=== PATIENT | male | born 1955 | race Caucasian/White ===

== ENCOUNTER 2023-05-17 09:58 | Outpatient (OUT) | payer MEDICARE, SELFPAY ==
[2023-05-17 10:49] LABS: Basophils Percent Auto 0.5 % (0.2-2.0); Eosinophils Absolute Auto 0.3 10^3/uL (0.0-0.7); Eosinophils Percent Auto 6.4 % (0.9-7.0); Hematocrit 45.6 % (42.0-54.0); Hemoglobin 15.7 g/dL (14.0-18.0); Immature Granulocytes Abs Auto 0.01 10^3/uL (0.00-0.03); Immature Granulocytes Pct Auto 0.3 % (0.0-0.5); Lymphocytes Absolute Auto 1.2 10^3/uL (1.2-3.8); Lymphocytes Percent Auto 31.1 % (20.5-60.0); Mean Corpuscular HGB Conc 34.4 g/dL (29.9-35.2); Mean Corpuscular Hemoglobin 30.8 pg (25.9-34.0); Mean Corpuscular Volume 89.6 fL (80.0-94.0); Mean Platelet Volume 10.5 fL (9.5-13.5); Monocytes Absolute Auto 0.5 10^3/uL (0.3-0.8); Monocytes Percent Auto 12.2 % (1.7-12.0); Neutrophils Absolute Auto 1.9 10^3/uL (1.4-6.5); Neutrophils Percent Auto 49.5 % (43.0-75.0); Platelet Count 189 10^3/uL (150-450); Red Blood Count 5.09 10^6/uL (4.70-6.10); Red Cell Distribution Width 12.6 % (11.0-15.0); White Blood Count 3.9 10^3/uL (4.0-11.0)
[2023-05-17 10:50] LABS: Bilirubin Urine NEGATIVE (NEGATIVE); Blood Urine NEGATIVE (NEGATIVE); Clarity Urine CLEAR (CLEAR); Color Urine LT. YELLOW (YELLOW); Glucose Urine UA NEGATIVE (NEGATIVE); Ketones Urine NEGATIVE (NEGATIVE); Leukocyte Esterase Urine NEGATIVE (NEGATIVE); Nitrite Urine NEGATIVE (NEGATIVE); Protein Urine NEGATIVE (NEG/TRACE); Specific Gravity Urine <=1.005 (1.005-1.025); Urobilinogen Urine 0.2 EU/dL (0.2-1.0); pH Urine 6.5 (5.0-9.0)
[2023-05-17 11:02] LABS: RBC Urine NONE SEEN #/HPF (0-2); WBC Urine NONE SEEN #/HPF (NONE SEEN)
[2023-05-17 11:03] LABS: Bacteria Urine NONE SEEN #/HPF (NONE SEEN); Crystals Seen? None Seen #/HPF (None Seen); Mucus Urine NONE SEEN (NONE SEEN); Squamous Epithelial Cell Urine RARE #/LPF (NONE/RARE)
[2023-05-17 11:04] LABS: Cast Seen? NONE SEEN #/LPF (NONE SEEN)
[2023-05-17 13:01] LABS: Anion Gap 12.6; Carbon Dioxide 29.6 mmol/L (21.0-32.0); Chloride 103 mmol/L (98-107); Potassium 4.2 mmol/L (3.5-5.1); Sodium 141 mmol/L (136-145)
[2023-05-17 13:02] LABS: Alanine Aminotransferase 34 U/L (16-63); Aspartate Amino Transferase 32 U/L (15-37); BUN Creatinine Ratio 15.5; Bilirubin Total 0.7 mg/dL (0.2-1.0); Calcium 9.3 mg/dL (8.5-10.1); Estimated GFR (African America >60 (>=60); Estimated GFR (Non-African Ame 55 (>=60); Glucose 84 mg/dL (74-106)
[2023-05-17 13:03] LABS: Albumin Globulin Ratio 1.2; Albumin Level 3.9 g/dL (3.4-5.0); Alkaline Phosphatase 93 U/L (46-116); Globulin 3.2 g/dL; Total Protein 7.1 g/dL (6.4-8.2); Triglycerides 78 mg/dL (<=150); VLDL CHOLESTEROL 15.6 mg/dL
[2023-05-17 13:04] LABS: Chol HDL Ratio 3.3; Cholesterol 203 mg/dL (<=200); HDL Cholesterol 62 mg/dL (40-60); Thyroid Stimulating Hormone 3.397 uIU/mL (0.358-3.740)
[2023-05-18 08:12] LABS: PSA, Free 0.39 ng/mL; Prostate Specific Ag 2.1 ng/mL (0.0-4.0)
== END 2023-05-17 09:59 | disposition home or self-care (01) ==
LOC: LAB 10:03
PROVIDERS: PCP Family Medicine; Visit Provider Family Medicine
DX: E78.5 Hyperlipidemia, unspecified (principal); R63.5 Abnormal weight gain; Z79.899 Other long term (current) drug therapy; R35.1 Nocturia; R97.20 Elevated prostate specific antigen [PSA]
CPT/HCPCS: 36415; 80053; 80061; 81001; 84153; 84154; 84443; 85025; 87086

== ENCOUNTER 2023-10-07 13:30 | Outpatient (OUT) | payer MEDICARE, SELFPAY ==
[2023-10-07 13:57] LABS: Anion Gap 10.8; BUN Creatinine Ratio 13.2; Calcium 8.8 mg/dL (8.5-10.1); Carbon Dioxide 31.7 mmol/L (21.0-32.0); Chloride 106 mmol/L (98-107); Estimated GFR (African America >60 (>=60); Estimated GFR (Non-African Ame 55 (>=60); Glucose 92 mg/dL (74-106); Potassium 4.5 mmol/L (3.5-5.1); Sodium 144 mmol/L (136-145)
== END 2023-10-07 13:31 | disposition home or self-care (01) ==
LOC: LAB 13:32
PROVIDERS: PCP Family Medicine; Visit Provider Family Medicine
DX: Z79.899 Other long term (current) drug therapy (principal)
CPT/HCPCS: 36415; 80048

== ENCOUNTER 2023-12-02 09:13 | Outpatient (OUT) | payer MEDICARE, SELFPAY ==
--- OUTSIDE RECORDS SUMMARY | 2023-12-02 09:21 | XMS_ITS | CCD ---
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 Name Role Phone Jose Billy Unavailable Makenzie Mcqueenn Unavailable Richard Vail Unavailable DO Jose Billy Primary Care Provider [phone] DO Jose Billy Attending Provider [phone] DO Jose Billy Primary Care Provider [phone] MD Reji Wesley II Attending Provider Reji Wesley II Unavailable Jose Billy Primary Care Unavailable Reji Wesley II Attending Unavailabl e Reji Wesley II Admitting Unavailronnie e Medications Current Medications Medication Drug Class(es) Dates Sig (Normalized) Sig (Original) Aspir-81 (4 sources) Aspir-81 Active aspirin 81 mg chewable tablet (7 sources) Platelet Aggregation Inhibitor, Nonsteroidal Anti-inflammatory Drug take 1 tablet by mouth every twenty-four hours Aspirin 81 81 MG 1 tablet Orally Once a day Active take 1 tablet by mouth once genaro y Aspirin 81 81 MG 1 tablet Orally Once a day Active Bioflex (4 sources) Bioflex Active calcium carbonate 1500 mg oral tablet (7 sources) take 2 tablets by mo uth every twenty-four hours Calcium 600 MG 2 tablet with meals Orally Once a day Active take 2 tablets by mo uth every twenty-four hours Calcium 600 MG 2 tablet with meals Orally Once a day Active Calcium Citrate (4 sources) Citracal + D Act judie Centrum Silver 50+Men (4 sources) Centrum Silver 50+Men Active Centrum Silver 50+Men - (7 sources) take 1 tablet by mouth once daily Centrum Silver 50+Men - 1 TABLET Orally ONCE A DAY Active Citrulline (4 sources) Citrulline - as directed Active Creatine (4 sources) Creatine Monohyd rate - as directed Orally Active Glucosamine Chond Cmp Triple - (7 sources) take 1 tablet by mouth twice daily Glucosamine Chond Cmp Triple - 1 TABLET Orally TWICE A DAY Active losartan potassium 25 mg oral tablet (11 sources) Angiotensin 2 Receptor Sabina take 1 tablet by mouth every twenty-four hours Losartan Potassium 25 MG 1 tablet Orally Once a day Active magnesium oxide 400 mg oral tablet (11 sources) Start: 1 take 1 tablet by mouth every twelve hours Magnesium Oxide 400 MG 1 tablet with food Orally TWICE A DAY Nov, Active Start: 11-22-2020 take 1 tablet by jasmin th every twenty-four hours Magnesium Oxide 400 MG 1 tablet as needed Orally Once a day Nov, Active meloxicam 15 mg oral tablet (1 source) Nonsteroidal Anti-inflammatory Drug Start: 07-31-2023 take 1 tablet by mouth every twenty-four hours Meloxicam 15 MG 1 tablet Orally Once a day for 30 days Jul, Active Turmeric extract (11 sources) take 1 capsule by mouth twice daily Turmeric 1053 MG 1 CAPSULE Orally TWICE A DAY Active Turmeric Active Completed/Discontinued Medications Medication Drug Class(es) Dates Sig (Normalized) Sig (Original) methylPREDNISolone 4 mg oral tablet (4 sources) Corticosteroid Start: 1 methylPREDNISolone 4 MG as directed Orally with food for 6 days Nov, Not-Taking Problems Active Problems Problem Classification Problem Date Documented Date Episodic/Chronic Calculus of urinary tract (6 sources) Kidney stone; Translations: [Calculus of kidney] Onset: 2 Resolved: 2 Episodic Chronic kidney disease (5 sources) Chronic kidney disease stage 3A ; Translations: [Chronic kidney disease, stage 3a] Chronic Diseases of white blood cells (3 sources) Leukopenia; Translations: [Decreased white blood cell count, unspecified] Chronic Disorders of lipid metabolism (14 sources) Hyperlipidemia; Translations: [Hyperlipidemia, unspecified] Onset: 1 Resolved: 1 Chronic Essential hypertension (14 sources) Hypertensive disorder; Translations: [Essential (primary) hypertension] Onset: 1 Resolved: 1 Chronic Genitourinary symptoms and ill-defined conditions (3 sources) Nocturia; Translations: [Nocturia R35.1] Onset: 1 Resolved: 1 Episodic Hypertension with complications and secondary hypertension (9 sources) Chronic kidney disease due to hypertension; Translations: [Hypertensive chronic kidney disease with stage 1 through stage 4 chronic kidney disease, or unspecified chronic kidney disease] Onset: 2 Resolved: 2 Chronic Osteoarthritis (4 sources) Osteoarthritis of right knee joint; Translations: [Unilateral primary osteoarthritis, right knee] Chronic Other aftercare (3 sources) Other spark tester (current) drug therapy; Translations: [Other spark tester (current) drug therapy Z79.899] Onset: 1 Resolved: 1 Episodic Other diseases of kidney and ureters (7 sources) Secondary hyperparathyroidism; Translations: [Secondary hyperparathyroidism of renal origin] Chronic Other diseases of kidney and ureters (1 source) Secondary hyperparathyroidism of renal origin Onset: 2 Resolved: 2 Chronic Other hereditary and degenerative nervous system conditions (11 sources) Restless legs; Translations: [Restless legs syndrome] Chronic Other hereditary and degenerative nervous system conditions (2 sources) Restless legs syndrome Chronic Other non-traumatic joint disorders (1 source) Pain in left knee Episodic Other nutritional; endocrine; and metabolic disorders (3 sources) Abnormal weight gain; Translations: [Weight gain R63.5] Onset: 1 Resolved: 1 Episodic Other screening for suspected conditions (not mental disorders or infectious disease) (4 sources) Other specified abnormal findings of blood chemistry; Translations: [Elevated prostate specific antigen [PSA]] Onset: 1 Resolved: 1 Episodic Unclassified (1 source) Pain in left knee; Translations: [Pain in left knee] Onset: 3 Past or Other Problems Problem Classification Problem Date Documented Da te Episodic/Chronic Chronic kidney disease (16 sources) Chronic kidney disease; Translations: [Chronic kidney disease, stage 3a] Onset: 09-25-2021 Resolved: 01-04-2022 Immunizations and screening for infectious disease (2 sources) Encounter for immunization Onset: 07-26-2021 Resolved: 02-02-2022 Episodic Spondylosis; intervertebral disc disorders; other back problems (1 source) Low back pain; Translations: [Lumbar pain M54.5] Onset: 06-06-2021 Resolved: 06-06-2021 Episodic Results Test Name Value Interpretation Reference Range Facility XR knee BI 4Von 07-31-2023 XR knee BI 4V [facility] [address] [address] XRay Report Signed Patient: Otf Terry MR#: [id number] : 1955 Acct:[id number] Age/Sex: 68 / M ADM Date: 07/31/23 Loc: SOXD Room: [facility] Attending Dr: Reji Wesley II, MD Copies to: Reji Wesley MD Ordering Provider: Reji Wesley MD Date of Service: 07/31/23 XR/XR knee BI 4V: Acute pain of left knee XR knee BI 4V 07/31/2023 2:15 PM SIGNS AND SYMPTOMS: Bilateral knee pain left greater than right PROTOCOL: Frontal, lateral, oblique, and sunrise views of the COMPARISON: None FINDINGS: There is significant narrowing of the medial weightbearing joint spaces and patellofemoral joint spaces bilaterally. There is no fracture or disc. Small joint effusions are present bilaterally. The re is prepatellar soft tissue swelling. XR/XR knee BI 4V IMPRESSION: No acute bony injury. Significant tricompartmental degenerative changes are noted with small joint effusions bilaterally, as above. Impression dictated by: Getachew Manriquez M.D.07/31/2023 4:43 PM Dictation Location: [place] [address] Transcribed By: [facility] 07/31/23 164 Dictated By: Getachew Manriquez II, MD 07/31/23 164 Signed By: 07/31/23 1643 Normal [facility] XR pelvis 1-2Von 07-31-2023 XR pelvis 1-2V [facility] [address] [address] XRay Report Signed Patient: Otf Terry MR#: [id number] : 1955 Acct:[id number] Age/Sex: 68 / M ADM Date: 07/31/23 Loc: SOXD Room: Type: [facility] Attending Dr: Reji Wesley II, MD Copies to: Reji Wesley MD Ordering Provider: Reji Wesley MD Date of Service: 07/31/23 XR/XR pelvis 1-2V: Acute pain of left knee XR pelvis 1-2V 07/31/2023 2:15 PM SIGNS AND SYMPTOMS: Bilateral knee pain left greater than right PROTOCOL: Frontal radiograph of the pelvis COMPARISON: None FINDINGS: The bony ring of the pelvis is intact. Mild degenerative changes of the sacroiliac joints and hips. There is no fracture or dislocation. XR/XR pelvis 1-2V IMPRESSION: No fracture or dislocation. Mild degenerative changes are noted in the hips and sacroiliac joints. Impression dictated by: Getachew Manriquez M.D.07/31/2023 4:46 PM Dictation Location: [place] [address] Transcribed By: [facility] 07/31/23 164 Dictated By: Getachew Manriquez II, MD 07/31/231642 Signed By: 07/31/23 164 Normal [facility] Albumin [Mass/volume] in Ser um or PlasmaOrdered By: Jose Billy on 06-04-2022 Albumin [Mass/Vol] 3.9 g/dL 3.2-5.5 [facility] Basophils Auto (Bld) [#/Vol] Ordered By: Jose Billy on 06-04-2022 Basophils (Bld) [#/Vol] 0.0 10*3/uL 0.0-0.2 [facility] Basophils/100 WBC Auto (Bld) Ordered By: Jose Billy on 06-04-2022 Basophils/100 WBC (Bld) 0.6 % . [facility] Bilirubin Test strip Ql (U)O rdered By: Jose Billy on 06-04-2022 Bilirubin Ql (U) Negative Negative [facility] Cholesterol [Mass/volume] in Serum or PlasmaOrdered By: Jose Billy on 06-04-2022 Cholesterol [Mass/Vol] 191 mg/dL 140-200 [facility] Comment on above: Chol less than 200 m g/dl low riskChol 201-239 mg/dl borderline riskChol 240 mg/dl and greater high risk Cholesterol in LDL Calc [Mas s/Vol]Ordered By: Jose Billy on 06-04-2022 Cholesterol in LDL [Mass/Vol] 112 mg/dL 0-100 [facility] Comment on above: LDL ATP III CLASSIFI CATIONLDL less than 100 mg/dL OptimalLDL 100-129 mg/dL Near or above optimalLDL 130-159 mg/dL Borderline highLDL 160-189 mg/dL HighLDL greater than 189 mg/dL Very high Cholesterol in VLDL Calc [Ma ss/Vol]Ordered By: Jose Billy on 06-04-2022 Cholesterol in VLDL [Mass/Vol] 14 mg/dL [facility] Color Auto (U)Ordered By: Jay Billy on 06-04-2022 Color (U) Yellow Yellow [facility] Creatinine and Glomerular fi ltration rate.predicted panel (S/P/Bld)Ordered By: Jose Billy on 06-04-2022 Creatinine [Mass/Vol] 1.44 mg/dL 0.64-1.27 [facility] Eosinophils Auto (Bld) [#/Vo l]Ordered By: Jose Billy on 06-04-2022 Eosinophils (Bld) [#/Vol] 0.2 10*3/uL 0.0-0.45 [facility] Eosinophils/100 WBC Auto (Bl d)Ordered By: Jose Billy on 06-04-2022 Eosinophils/100 WBC (Bld) 5.5 % . [facility] Erythrocyte distribution wid th Auto (RBC) [Ratio]Ordered By: Jose Billy on 06-04-2022 Erythrocyte distribution width (RBC) [Ratio] 13.5 % 12.0-14.8 [facility] Estimated glomerular filtrat ion rate (GFR) non- AmericanOrdered By: Jose Billy on 06-04-2022 GFR/1.73 sq M.predicted among non-blacks MDRD (S/P/Bld) [Vol rate/Area] 49 mL/Min [facility] Globulin Calc (S) [Mass/Vol] Ordered By: Jose Billy on 06-04-2022 Globulin (S) [Mass/Vol] 2.3 g/dL [facility] Hematocrit Auto (Bld) [Volum e fraction]Ordered By: Jose Billy on 06-04-2022 Hematocrit (Bld) [Volume fraction] 44.7 % 38.8-50.0 [facility] Hemoglobin [Mass/volume] in BloodOrdered By: Jose Billy on 06-04-2022 Hemoglobin (Bld) [Mass/Vol] 15.1 g/dL 13.0-17.0 [facility] Ketones Auto test strip (U) [Mass/Vol]Ordered By: Jose Billy on 06-04-2022 Ketones (U) [Mass/Vol] Negative Negative [facility] - Hematology and Cell countsOrdered By: Jose Billy on 06-04-2022 Nucleated RBC/100 WBC (Bld) [Ratio] 0.2 % 0-0.5 [facility] Leukocytes [#/volume] in Blo od by Automated countOrdered By: Jose Billy on 06-04-2022 WBC (Bld) [#/Vol] 4.1 10*3/uL 4.5-11.0 [facility] Lymphocytes Auto (Bld) [#/Vo l]Ordered By: Jose Billy on 06-04-2022 Lymphocytes (Bld) [#/Vol] 1.2 10*3/uL 1.00-4.8 [facility] Lymphocytes/100 WBC Auto (Bl d)Ordered By: Jose Billy on 06-04-2022 Lymphocytes/100 WBC (Bld) 30.0 % . [facility] MCH Auto (RBC) [Entitic mass ]Ordered By: Jose Billy on 06-04-2022 MCH (RBC) [Entitic mass] 30.3 pg 27.5-35.2 [facility] MCHC Auto (RBC) [Mass/Vol]Or dered By: Jose Billy on 06-04-2022 MCHC (RBC) [Mass/Vol] 33.7 g/dL 32.5-35.6 [facility] MCV Auto (RBC) [Entitic vol] Ordered By: Jose Billy on 06-04-2022 MCV (RBC) [Entitic vol] 89.7 fL 83.5-101 [facility] Monocytes Auto (Bld) [#/Vol] Ordered By: Jose Billy on 06-04-2022 Monocytes (Bld) [#/Vol] 0.4 10*3/uL 0.0-0.8 [facility] Monocytes/100 WBC Auto (Bld) Ordered By: Jose Billy on 06-04-2022 Monocytes/100 WBC (Bld) 10.4 % . [facility] Neutrophils Auto (Bld) [#/Vo l]Ordered By: Jose Billy on 06-04-2022 Neutrophils (Bld) [#/Vol] 2.2 10*3/uL 1.8-7.7 [facility] Neutrophils/100 WBC Auto (Bl d)Ordered By: Jose Billy on 06-04-2022 Neutrophils/100 WBC (Bld) 53.5 % . [facility] Nitrite Test strip Ql (U)Ord ered By: Jose Billy on 06-04-2022 Nitrite Ql (U) Negative Negative [facility] No Panel InformationOrdered By: Jose Billy on 06-04-2022 Estimated GFR () 59 mL/Min [facility] Comment on above: GFR estimated refere nce range: According to KDOQI guidelines, <60 ml/min/1.73m2 is sufficient to diagnose a patient with chronic kidney disease. Pharmacy Creatinine Clearance (Chem N/A [facility] Prostate Specific Antigen Total 1.640 ng/mL 0.000-4.000 [facility] Platelet mean volume Auto (B ld) [Entitic vol]Ordered By: Jose Billy on 06-04-2022 Platelet mean volume (Bld) [Entitic vol] 9.0 fL 6.6-10.1 [facility] Platelets Auto (Bld) [#/Vol] Ordered By: Jose Billy on 06-04-2022 Platelets (Bld) [#/Vol] 170 10*3/uL 150-450 [facility] Protein Auto test strip (U) [Mass/Vol]Ordered By: Jose Billy on 06-04-2022 Protein (U) [Mass/Vol] Negative Negative [facility] Protein [Mass/volume] in Ser um or PlasmaOrdered By: Jose Billy on 06-04-2022 Protein [Mass/Vol] 6.2 g/dL 6.1-7.9 [facility] RBC Auto (Bld) [#/Vol]Ordere d By: Jose Billy on 06-04-2022 RBC (Bld) [#/Vol] 4.98 10*6/uL 3.90-5.60 [facility] Serum or plasma alanine miller otransferase measurement without P-5'-P (enzymatic activiOrdered By: Jose Billy on 06-04-2022 ALT No additional P-5'-P [Catalytic activity/Vol] 25 U/L [facility] Serum or plasma albumin/glob ulin mass ratioOrdered By: Jose Billy on 06-04-2022 Albumin/Globulin [Mass ratio] 1.7 {ratio} [facility] Serum or plasma alkaline iwona sphatase measurement (enzymatic activity/volume)Ordered By: Jose Billy on 06-04-2022 ALP [Catalytic activity/Vol] 84 U/L 32-92 [facility] Serum or plasma anion gap de terminationOrdered By: Jose Billy on 06-04-2022 Anion gap [Moles/Vol] 10.8 mmol/L 6.0-15.0 [facility] Serum or plasma aspartate am inotransferase measurement (enzymatic activity/volume)Ordered By: Jose Billy on 06-04-2022 AST [Catalytic activity/Vol] 27 U/L [facility] Serum or plasma calcium riley urement (mass/volume)Ordered By: Jose Billy on 06-04-2022 Calcium [Mass/Vol] 9.4 mg/dL 8.2-10.2 [facility] Serum or plasma chloride ana surement (moles/volume)Ordered By: Jose Billy on 06-04-2022 Chloride [Moles/Vol] 106 mmol/L 95-114 [facility] Serum or plasma glucose riley urement (mass/volume)Ordered By: Jose Billy on 06-04-2022 Glucose [Mass/Vol] 87 mg/dL 70-100 [facility] Comment on above: ADA recommended refe rence rangeRandom Glucose Reference Range is dependent on time and content of last meal. Glucose of more than 200 mg/dL in a nonstressed, ambulatory subject supports the diagnosis of Diabetes Mellitus. Serum or plasma high density lipoprotein (HDL) cholesterol measurementOrdered By: Jose Billy on 06-04-2022 Cholesterol in HDL [Mass/Vol] 65 mg/dL - [facility] Comment on above: HDL CHOL ATP-III CLA SSIFICATION Cardiovascular RiskHDL > or equal to 60 mg/dL LOWHDL < 40 mg/dL HIGH Serum or plasma potassium me asurement (moles/volume)Ordered By: Jose Billy on 06-04-2022 Potassium [Moles/Vol] 4.4 mmol/L 3.5-5.1 [facility] Serum or plasma sodium measu rement (moles/volume)Ordered By: Jose Billy on 06-04-2022 Sodium [Moles/Vol] 141 mmol/L 136-146 [facility] Serum or plasma total biliru bin measurement (mass/volume)Ordered By: Jose Billy on 06-04-2022 Bilirubin [Mass/Vol] 0.8 mg/dL 0.3-1.2 [facility] Serum or plasma total carbon dioxide measurement (moles/volume)Ordered By: Jose Billy on 06-04-2022 CO2 [Moles/Vol] 28.6 mmol/L 22.0-30.0 [facility] Serum or plasma total choles terol/high density lipoprotein (HDL) cholesterol mass ratOrdered By: Jose Billy on 06-04-2022 Cholesterol.total/Choles terol in HDL [Mass ratio] 2.9 {ratio} <5.0 [facility] Serum or plasma urea nitroge n measurement (mass/volume)Ordered By: Jose Billy on 06-04-2022 Urea nitrogen [Mass/Vol] 12 mg/dL 05-11 [facility] Specific gravity Auto test s trip (U) [Rel density]Ordered By: Jose Billy on 06-04-2022 Specific gravity (U) [Rel density] 1.008 1.001-1.030 [facility] TSH DL <= 0.005 mIU/L QnOrde red By: Jose Billy on 06-04-2022 TSH Qn 4.45 m[IU]/L 0.45-5.33 [facility] Triglyceride [Mass/volume] i n Serum or PlasmaOrdered By: Jose Billy on 06-04-2022 Triglyceride [Mass/Vol] 70 mg/dL 35-149 [facility] Comment on above: TRIG ATP III CLASSIF ICATIONTRIG less than 150 mg/dL NormalTRIG 150-199 mg/dL Borderline highTRIG 200-500 mg/dL High TRIG greater than 500 mg/dL Very highStandard traceable to the Center for Disease Conrtrol and Prevention (CDC) test method. Urine clarity by refractomet ry automatedOrdered By: Jose Billy on 06-04-2022 Clarity Refractometry automated (U) Clear Clear [facility] Urine glucose measurement by automated test strip (mass/volume)Ordered By: Jose Billy on 06-04-2022 Glucose Auto test strip (U) [Mass/Vol] Normal mg/dL Normal [facility] Urine hemoglobin detection b y automated test stripOrdered By: Jose Billy on 06-04-2022 Hemoglobin Auto test strip Ql (U) Negative Negative [facility] Urine leukocyte esterase det ection by automated test stripOrdered By: Jose Billy on 06-04-2022 Leukocyte esterase Auto test strip Ql (U) Negative Negative [facility] Urobilinogen Auto test strip (U) [Mass/Vol]Ordered By: Jose Billy on 06-04-2022 Urobilinogen (U) [Mass/Vol] Normal mg/dL Normal [facility] pH Auto test strip (U)Ordere d By: Jose Billy on 06-04-2022 pH (U) 7.0 [pH] 5.0-9.0 [facility] Vital Signs Date Time Vital Sign Value Performing Clinician Facility 07-31-2023 14:30-0500 Body height 177.8 cm Reji Wesley II Other [facility] Other 07-31-2023 14:30-0500 Body mass index (BMI) [Ratio] 34.43 kg/m2 Reji Wesley II Other [facility] Other 07-31-2023 14:30-0500 Body weight 108.86 kg Reji Wesley II Other [facility] Other 05-23-2023 09:50-0400 Body height 177.8 cm Jose Gonzalezronnie Other [facility] Other 05-23-2023 09:50-0400 Body mass index (BMI) [Ratio] 34.79 kg/m2 Jose Billy Other [facility] Other 05-23-2023 09:50-0400 Body temperature 98.9 [degF] Jose Billy Other [facility] Other 05-23-2023 09:50-0400 Body weight 110 kg Jose Billy Other [facility] Other 05-23-2023 09:50-0400 Diastolic blood pressure 84 mm[Hg] Jose Billy Other [facility] Other 05-23-2023 09:50-0400 Respiratory rate 18 /min Jose Billy Other [facility] Other 05-23-2023 09:50-0400 SaO2% (BldA) [Mass fraction] 96 % Jose Billy Other [facility] Other 05-23-2023 09:50-0400 Systolic blood pressure 132 mm[Hg] Jose Billy Other [facility] Other 06-07-2022 11:30-0400 Body height 177.8 cm Jose Billy Other [facility] Other 06-07-2022 11:30-0400 Body mass index (BMI) [Ratio] 34.72 kg/m2 Jose Billy Other [facility] Other 06-07-2022 11:30-0400 Body temperature 97.4 [degF] Jose Billy Other [facility] Other 06-07-2022 11:30-0400 Body weight 109.77 kg Jose Billy Other [facility] Other 06-07-2022 11:30-0400 Diastolic blood pressure 78 mm[Hg] Jose Billy Other [facility] Other 06-07-2022 11:30-0400 Respiratory rate 18 /min Jose Billy Other [facility] Other 06-07-2022 11:30-0400 SaO2% (BldA) [Mass fraction] 98 % Jose Billy Other [facility] Other 06-07-2022 11:30-0400 Systolic blood pressure 136 mm[Hg] Jose Billy Other [facility] Other 01-04-2022 11:40-0400 Body height 177.8 cm Richard Genna Other [facility] Other 01-04-2022 11:40-0400 Body mass index (BMI) [Ratio] 34.12 kg/m2 Richard Genna Other [facility] Other 01-04-2022 11:40-0400 Body temperature 96.2 [degF] Richard Genna Other [facility] Other 01-04-2022 11:40-0400 Body weight 107.87 kg Richard Genna Other [facility] Other 01-04-2022 11:40-0400 Diastolic blood pressure 77 mm[Hg] Richard Genna Other [facility] Other 01-04-2022 11:40-0400 Respiratory rate 18 /min Richard Genna Other [facility] Other 01-04-2022 11:40-0400 SaO2% (BldA) [Mass fraction] 97 % Richard Genna Other [facility] Other 01-04-2022 11:40-0400 Systolic blood pressure 123 mm[Hg] Richard Genna Other [facility] Other 09-25-2021 17:00-0500 Body height 177.8 cm Richard Genna Other [facility] Other 09-25-2021 17:00-0500 Body mass index (BMI) [Ratio] 34.81 kg/m2 Richard Genna Other [facility] Other 09-25-2021 17:00-0500 Body temperature 96.6 [degF] Richard Genna Other [facility] Other 09-25-2021 17:00-0500 Body weight 110.04 kg Richard Genna Other [facility] Other 09-25-2021 17:00-0500 Diastolic blood pressure 91 mm[Hg] Richard Genna Other [facility] Other 09-25-2021 17:00-0500 Respiratory rate 18 /min Richard Genna Other [facility] Other 09-25-2021 17:00-0500 SaO2% (BldA) [Mass fraction] 97 % Richard Genna Other [facility] Other 09-25-2021 17:00-0500 Systolic blood pressure 164 mm[Hg] Richard Genna Other [facility] Other 06-06-2021 10:10-0400 Body height 177.8 cm Jose Billy Other [facility] Other 06-06-2021 10:10-0400 Body mass index (BMI) [Ratio] 34.58 kg/m2 Jose Billy Other [facility] Other 06-06-2021 10:10-0400 Body temperature 97.5 [degF] Jose Billy Other [facility] Other 06-06-2021 10:10-0400 Body weight 109.32 kg Jose Billy Other [facility] Other 06-06-2021 10:10-0400 Diastolic blood pressure 78 mm[Hg] Jose Billy Other [facility] Other 06-06-2021 10:10-0400 SaO2% (BldA) [Mass fraction] 97 % Jose Billy Other [facility] Other 06-06-2021 10:10-0400 Systolic blood pressure 138 mm[Hg] Jose Billy Other [facility] Other Encounters Encounter Date Encounter Type Care Provider Facility Start: 07-31-2023 End: 07-31-2023 ambulatory Jose Billy Facility:[facility] Start: 07-31-2023 End: 07-31-2023 Patient encounter procedure DO Jose Billy Work Phone: [facility] Start: 07-31-2023 End: 07-31-2023 ambulatory DO Jose Billy Work Phone: [facility] Work Phone: Start: 07-31-2023 Office outpatient ne w 45 minutes Reji Wesley II [facility] Start: 05-23-2023 End: 05-23-2023 ambulatory Jose Billy Other [facility] Other Start: 05-23-2023 Office outpatient vi sit 15 minutes Jose Billy [facility] Start: 06-07-2022 End: 06-07-2022 ambulatory Jose Billy Other [facility] Other Start: 06-07-2022 Office outpatient vi sit 15 minutes Jose Billy [facility] Start: 06-04-2022 End: 06-04-2022 ambulatory DO Jose Billy Work Phone: [facility] Work Phone: Start: 06-04-2022 End: 06-04-2022 Patient encounter procedure DO Jose Billy Work Phone: [facility] [place] Start: 02-02-2022 ([facility] C Vac) [facility] Co vid Vaccine Maranda Mcqueen [facility] Start: 02-02-2022 End: 02-02-2022 ambulatory Maranda Mcqueen Other [facility] Other Start: 01-04-2022 End: 01-04-2022 ambulatory Richard Genna Other [facility] Other Start: 01-04-2022 Office outpatient vi sit 15 minutes Richard Genna [facility] Start: 09-27-2021 End: 09-27-2021 ambulatory Richard Genna Other [facility] Other Start: 09-27-2021 Telephone encounter Richard Vail [facility] [employer] Start: 09-25-2021 End: 09-25-2021 ambulatory Richard Vail Other [facility] Other Start: 09-25-2021 Office outpatient ne w 45 minutes Richard Vail [facility] Nephrology Start: 07-27-2021 End: 07-27-2021 ambulatory Jose Billy Other [facility] Other Start: 07-27-2021 Telephone encounter Jose Billy [facility] Start: 07-26-2021 ([facility] C Vac) [facility] Co vid Vaccine Maranda Fitt [facility] Start: 07-26-2021 End: 07-26-2021 ambulatory Maranda Fitt Other [facility] Other Start: 07-04-2021 End: 07-04-2021 ambulatory Jose Billy Other [facility] Other Start: 07-04-2021 Telephone encounter [facility] Start: 06-06-2021 Office outpatient vi sit 15 minutes Jose Billy [facility] Procedures Date Procedure Procedure Detail Performing Clinician Start: 07-31-2023 Pelvis X-ray DO Jose trujillo Work Phone: Start: 07-31-2023 X-ray of both knees DO Jose Billy Work Phone: Plan of Treatment Date Care Activity Detail Author Bacteria identified in Urine by Culture [facility] Immunizations Immunization Date Immunization Notes Care Provider Ramesh carvajal 02-02-2022 COVID-19 Pfizer Maranda Fitt Other [facility] Other 08-10-2021 zoster vaccine recombinant Jose Billy Other [facility] Other 07-26-2021 COVID-19 Pfizer Maranda Mcqueen Other [facility] Other 06-08-2021 zoster vaccine recombinant Jose Billy Other [facility] Other 01-12-2021 COVID-19 Vaccine Pfi zer - Documentation Purposes Only Jose Billy Other [facility] 12-22-2020 COVID-19 Vaccine Pfi zer - Documentation Purposes Only Jose Billy Other [facility] Payers Date Payer Category Payer Self-pay [id number] 2020 Medicare [id number] 2.1 [id number] 2020 Unknown [id number] 2.1 [id number] Unknown [place] BC/BS [id number] Unknown [id number] Social History Date Type Detail Facility Unknown if ever smoked [facility] Other Sex Assigned At Sex Assigned At Bir th [facility] Other Start: 1955 Sex Assigned At Male [facility] Clinical Notes 06-06-2021 to 07-31-2023 Note Date & Type Note Facility 07-31-2023 Evaluation note Encounter Date Diagnosis Assessment Notes Jul, Primary osteoarthritis of left knee (ICD-10 - M17.12) Jul, Primary osteoarthritis of right knee (ICD-10 - M17.11) Jul, Acute pain of left knee (ICD-10 - M25.562) Jul, Other 1. We had a long discussion with the patient today concerning their left and right knee osteoarthritis. The radiographs do show osteoarthritis of the knees. At this time the patient would like to avoid surgical intervention. We did discuss the risk and benefits of surgical versus nonoperative management. The patient would like to proceed with nonoperative management. We discussed that our options include injections, physical therapy, and the consistent use of anti-inflammator ies. All 3 of these options, including their risks and benefits, were discussed at length with the patient. 2. Tylenol: Discussed taking Tylenol (acetaminophen). Recommended adjusting their dosing to 1000mg by mouth up to 3 times a day. 3. NSAIDs: Prescribed the patient 15 mg Mobic (meloxicam) to be taken by mouth daily. Also recommended Voltaren gel 4-5 times a day 4. Physical therapy: Discussed formal physical therapy and home regimen. Patient preferred no PT at this time. 5. Injections: Discussed injections as a treatment option. We will forego injections at this time 6. Follow up as needed [facility] Other 10-05-2023 Evaluation note* Encounter Date Diagnosis Assessment Notes Treatment Notes Treatment Clinical Notes May, Hypertension (ICD-10 - I10) His blood pressure is controlled, continue with above medication daily as directed. May, Chronic kidney disease, stage III (moderate) (ICD-10 - N18.30) His BUN is 20. Creatinine is 1.29. EGFR is 55. He does not follow with Dr. Vail any longer and does not need to return to see him unless his EGFR goes to 30 or below. Stay well hydrated with plenty of water daily. He is taking Renafood a supplement that he gets from a chiropractor to help his EGFR, he takes one per day instead of three times a day. I encouraged him to continue with what he is doing. May, Hyperlipidemia (ICD-10 - E78.5) Discussed cholesterol results with patient today. Total is 203. HDL is 62. LDL is 126. Triglycerides are 78. VLDL is 15.6. I encouraged him to continue to monitor his intake of carbs and sugars. Stay active. May, Elevated PSA (ICD-10 - R97.20) We discussed his PSA level today. Total is 2.1 up from 2021 where it was 1.640 and 2020 where it was 1.140. Free PSA is 0.39. % Free is 18.9 which is down from 202 when it was 25. We discussed this today, I did recommend that he have a total and percent free PSA level drawn again in six months to monitor this closely. He is to call for the result in six months. If we see the percent free go down more and the total go up then we will discuss a referral to urology. No ejaculation for 48 hours prior to the lab draw. May, Leukopenia (ICD-10 - D72.819) His white blood cell count was 3.9. His blood cells are all calm and is only slightly low. At this time I would like to continue to monitor. If his result were half of that we would need to discuss a referral to a civil engineering design draftsperson. May, Restless leg syndrome (ICD-10 - G25.81) He does continue with above medication as directed. 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 He finds that it is difficult to do the four to five days a week in the summer because he has too much to do. His TSH is normal at 3.397. May, Nocturia (ICD-10 - R35.1) [facility] Other 10-20-2022 Evaluation note* Encounter Date Diagnosis Assessment Notes Treatment Notes Treatment Clinical Notes May, Hyperlipidemia (ICD-10 - E78.5) His total cholesterol is 191. HDL is 65. LDL is 112. Triglycerides are 70. VLDL is 14. Readings are at goal. Continue to monitor diet to include intake of carbs and sugars. Stay active and exercise. He does resistance training and stays well hydrated. May, Hypertension (ICD-10 - I10) He exercises regularly. He has a wrist cuff that he checks his blood pressure with at home and tracks his readings. His normal readings are 123/65 or in that range and he admits that he is nervous when he is in the office. His blood pressure in the office today was 144/90 and 148/86. I suspect his reading is elevated due to white coat hypertension. I encouraged him to continue with above medication and continue to monitor his blood pressure on his own and track readings. I did recheck his blood pressure myself and got a reading of 136/78. I do not feel we need to increase his Losartan dose. May, Chronic kidney disease, stage III (moderate) (ICD-10 - N18.30) He saw Dr. Vail in the spring (2021) and he did not feel that Otf needed to return to see him unless his EGFR was around 30. We discussed that his BUN is 12. EGFR is up from 1.31 to 1.44. His EGFR is down from 55 to 49. His readings are stable, for now we can continue to monitor. He is comfortable with this and agrees. May, Elevated PSA (ICD-10 - R97.20) His PSA is 1.640 at this time. Will do a PSA diagnostic and percent free with his next lab order. May, Weight gain (ICD-10 - R63.5) His TSH is 4.45. His thyroid is on the verge of being underactive but we will continue to monitor this. May, Other shelter (current) drug therapy (ICD-10 - Z79.899) May, Nocturia (ICD-10 - R35.1) May, Restless leg syndrome (ICD-10 - G25.81) Continue with above medication as directed. [facility] Other 06-17-2022 Evaluation note* Encounter Date Diagnosis Assessment Notes Treatment Notes Treatment Clinical Notes Jan, Encounter for immunization (ICD-10 - Z23) Patient presents for COVID-19 vaccination BOOSTER. Pre-screening form answers evaluated with patient. Patient denies current illness or allergic reaction to component of COVID-19 vaccine. Patient provided with current copy of EUA. [facility] Other 05-19-2022 Evaluation note* Encounter Date Diagnosis Assessment Notes Treatment Notes Treatment Clinical Notes December, Chronic kidney disease, stage III (moderate) (ICD-10 - N18.30) He has longstanding CKD with baseline serum creatinine 1.4 mg/dL. He likely has a CKD due to longstanding hypertension. He has Unremarkable Kidneys on renal US. I discussed with him the importance of good HTN control to slow down the progression of the CKD. December, Alberto ana maria kid w cr kid I-IV (ICD-10 - I12.9) Blood pressure is high today but usually controlled. He appears to be euvolemic. Continue current hypertensive medication. I have advised him to monitor blood pressure at home and call office if stays above 140/90 mmHg. December, Nephrolithiasis (ICD-10 - N20.0) He denies any recent passage of the kidney stones. I advised him adequately hydrate himself. [facility] Other 02-07-2022 Evaluation note* Encounter Date Diagnosis Assessment Notes Treatment Notes Treatment Clinical Notes Sep, Chronic kidney disea se, stage III (moderate) (ICD-10 - N18.30) Thanks for referring Mr. Terry to our office for an evaluation and management of CKD. As you know he has longstanding CKD with baseline serum creatinine 1.3 mg/dL. He likely has a CKD due to longstanding hypertension. I discussed with him the importance of good HTN control to slow down the progression of the CKD. I have ordered a renal ultrasound to evaluate the renal anatomy Sep, Alberto hy kid w cr kid I-IV (ICD-10 - I12.9) Blood pressure is high today but usually controlled. He appears to be euvolemic. Continue current hypertensive medication. I have advised him to monitor blood pressure at home and call office if stays above 140/90 mmHg. Sep, Secondary hyperparathyroidism (ICD-10 - N25.81) Calcium within normal limit. We will check PTH and vitamin D. [facility] Other 12-08-2021 Evaluation note* Encounter Date Diagnosis Assessment Notes Treatment Notes Treatment Clinical Notes Jul, Encounter for immunization (ICD-10 - Z23) Patient presents for COVID-19 vaccination BOOSTER. Pre-screening form answers evaluated with patient. Patient denies current illness or allergic reaction to component of COVID-19 vaccine. Patient provided with current copy of EUA. [facility] Other 10-19-2021 Evaluation note* Encounter Date Diagnosis Assessment Notes Treatment Notes Treatment Clinical Notes May, Hypertension (ICD-10 - I10) Blood pressure is controlled. Continue with above medication daily as directed. May, Other shelter (current) drug therapy (ICD-10 - Z79.899) May, Hyperlipidemia (ICD-10 - E78.5) Discussed cholesterol results with patient today. Total is 200. HDL is 51. LDL is 136. Triglycerides are 65. I would like to see his LDL between 70-100. He is encouraged to watch his intake of carbs and sugars. Stay active. He feels he can cut back on his intake of sugars and pastas. He would like to work on weight loss because he is heavier than he would like to be. He will work on lifestyle changes to see if he can lower his LDL on his own. May, Weight gain (ICD-10 - R63.5) He has gained 2 pounds since last seen. His TSH is 2.96. May, Other abnormal blood chemistry (ICD-10 - R79.89) His kidney studies were discussed today. BUN is 12. Creatinine is 1.31. EGFR is 55. His Creatinine is higher than we would like to see. I encouraged him to stay well hydrated daily with plenty of water. He takes Motrin once a week or once every two weeks, he should use this as little as possible because it can irritate the kidneys. He does take Creatine powder so I did recommend that he stop taking this for one month and recheck his kidney studies to see if they improve. He agrees. An order is provided. He can call for results. If his readings do not improve we may need to refer him to a associate artistic director. May, Elevated PSA (ICD-10 - R97.20) His PSA is 1.140. Free PSA is 0.290. % Free PSA is 25.0. No sign of prostate cancer at this time. May, Lumbar pain (ICD-10 - M54.5) He did see a chiropractor once a week for four weeks and voices that this did help his back pain. May, Nocturia (ICD-10 - R35.1) [facility] Other Evaluation noteNo [employer]N[facility] [employer] Other Evaluation noteNo assessment information available [facility] Work Phone: [facility] general Narrative - Reported* Type Description Date Medical History HTN Medical History Kidney stones Surgical History Foot Surgery 1979 Surgical History Knee scope left / Torn Meniscus / Dr. Lanza 2009 Surgical History Colonoscopy at age 60 per patie nt / does not recall who did it 2014 [facility] Other [facility] Narrative - Reported* Type Description Date Medical History HTN Medical History Kidney stones Surgical History Foot Surgery 1979 Surgical History Knee scope left / Torn Meniscus / Dr. Lanza 2009 Surgical History Colonoscopy at age 60 per patie nt / does not recall who did it 2014 Surgical History SINUS SURGERY [facility] [employer] Other Reason for Referral Reason appt pt willing t o see either dr consult for treatment of chronic kidney disease stage 3A Diagnosis 1 Chronic kidney disea se, stage 3a (N18.31) Referral Organization [facility] Family Shine Shah Referring Provider First Name Jose Referring Provider Last Name Mariajose Referring Provider Specialty Family Prac power Referred Organization [facility] Nephrology Referred Provider Fiorella Vila Referred Address [address] ,[place], [place],[address] Referred Provider Specialty Nephrology Referral Priority Routine General Notes Tisha Izaguirre 07/04/2021 02:01:24 PM > referral sent p2p. pt understands he will be contacted to schedule this appt. Chief Complaint and Reason for Visit Chief Complaint E78.5 R63.5 z79.899 r35.1 Advance Directives No Advanced Directives Records Found Advance Directive Response Recorded Date/ Time Advance Directives No June 17, 2017 2:05pm Advance Directive Response Recorded Date/ Time Advance Directives No June 17, 2017 1:05pm Summary Purpose Family History No Family History Records Found Additional Source Comments REASON FOR VISIT (unrecogniz ed section and content) review labsclinicalPFIZER VA CCINE BOOSTERquestionREFERRAL-NEPHRENAL CKD 3CKDPfizer Bosoter 2review labsreview labsNEW LT KNEE PAIN NX Care Teams (unrecognized sec tion and content) Team Status: Inactive Member Role Status Dates Jose Billy DO Primary Care Provider, Attending Pro vider Active Team Status: Active Member Role Status Dates Jose Billy DO Primary Care Provider Active Team Status: Inactive Member Role Status Dates Jose Billy DO Primary Care Provider Active Reji Wesley II, MD Attending Provider Active Goals (unrecognized section and content) Goals may be documented in a n alternate section (unrecognized sect ion and content) No Status Records Found INFORMATION SOURCE (unrecogn ized section and content) DATE CREATED AUTHOR 08/08/2023 [facility] FOR RECORDS PERTAINING TO PATIENTS WHO ARE OR HAVE BEEN ENROLLED IN A CHEMICAL DEPENDENCY/SUBSTANCEABUSE PROGRAM, SOME INFORMATION MAY BE OMITTED. This clinical summary was aggregated from multiple sources. Caution should be exercised in using it in the provision of clinical care. This summary normalizes information from multiple sources, and as a consequence, information in this document may materially change the coding, format and clinical context of patient data. In addition, data may be omitted in some cases. CLINICAL DECISIONS SHOULD BE BASED ON THE PRIMARY CLINICAL RECORDS. [facility] [employer] [facility]. provides no warranty or guarantee of the accuracy or completeness of information in this document.
[2023-12-03 04:07] LABS: Prostate Specific Ag 2.2 ng/mL (0.0-4.0)
== END 2023-12-02 09:14 | disposition home or self-care (01) ==
LOC: LAB 09:14
PROVIDERS: PCP Family Medicine; Visit Provider Family Medicine
DX: R97.20 Elevated prostate specific antigen [PSA] (principal)
CPT/HCPCS: 36415; 84153; 84154

== ENCOUNTER 2025-06-05 10:12 | Outpatient (OUT) | payer MEDICARE, SELFPAY ==
--- OUTSIDE RECORDS SUMMARY | 2025-06-05 10:19 | XMS_ITS | CCD ---
Author Organization [facility] CliniSysd Care Team Providers Care Yard Engineer Name Role Phone Jose Billy Unavailable Maranda Mcqueen Unavailable Richard Vail Unavailable DO Jose Billy Primary Care Provider [phone] DO Jose Billy Attending Provider DO Jose Billy Primary Care Provider MD Reji Wesley II Attending Provider Reji Wesley II Unavailable DO Jose Billy Primary Care Provider MD Reji Wesley II Attending Provider DO Jose Billy Attending Provider [phone] DO Jose Billy Primary Care Provider MD Reji Wesley II Attending Provider DO Jose Billy Attending Provider Jose Billy DO Primary Care Provider [phone] Reji Wesley MD Attending Provider [phone] Jose Billy DO Attending Provider Judi FLOR, Deepti Other Provider Unavailable Juanita García RN Other Provider Unavailable Maryam Wang RN Other Provider Unavailable Gala Shipley RN Other Provider Unavailable Tawny Greer RN Other Provider Unavailable Roshan Garibay MD Other Provider Slime Sanchez DO Other Provider Jacques Aly MD Other Provider [phone] Dionisio Carrasquillo DO Other Provider [phone] Nicholas HOLLY, Tashi Other Provider Olga Doshi MD Other Provider Moncho George DO Other Provider Ludin Pritchett MD Other Provider Unavailable Chun DRUMMOND, Marisela Other Provider Artur HOLLY, Terri Other Provider Stevie HOLLY, Brent Other Provider Carmella HOLLY, Donovan Other Provider Kera Woody MD Other Provider Moncho Hilton DO Other Provider Fiona Lazo MD Other Provider Maria Del Rosario HOLLY, Carlin Other Provider Ivis RECEIVING LEAD-C, Afua Barboza Other Provider Luis Armando DRUMMOND, Camila Peacock Other Provider Unavailable Barbara HOLLY, Lawrence Christianson Other Provider Ti HOLLY, Homar Other Provider Oseas Moulton MD Other Provider Zofia HOLLY, Zan Other Provider Unavailable Norbert Garcia MD Other Provider Sparkle Mckeon DO Other Provider Felipe Alvares DO Other Provider Laine Aguilar APRN Other Provider Tyshawn Estrella DO Other Provider [phone] Thai HOLLY, Camila Peacock Other Provider Hanna Mcdaniels APRN Other Provider Delisa Sanchez APRN Other Provider [phone] Rosalva HOLLY, Liat Other Provider Otf Escobar MD Other Provider Siegel DO, Mazin T Other Provider [phone] Constantin Santiago DO Other Provider Saige HOLLY, Robi Nam Other Provider Danny HOLLY, Roselyn Melvin Other Provider [phone] Maria Elena Young APRN Other Provider Benitez HOLLY, Yaritza Other Provider Adelia HOLLY, Arturo Other Provider Ammy Brown RN Other Provider Unavailable Jose Billy DO Primary Care Provider [phone] Reji Wesley MD Attending Provider Mariajose GUZMAN Jose Primary Care Provider Reji Wesley MD Attending Provider Donovan Weir MD Other Provider Unavailable Jose Billy DO [facility] Care Provider [phone] Reji Wesley MD Attending Provider [phone] Judi RN, Deepti Other Provider Unavailable Ricky RN, Juanita Other Provider Unavailable Felipe RNMrayam Other Provider Unavailable Violetta RNGala Other Provider Unavailable Tawny Greer RN Other Provider Unavailable Roshan Garibay MD Other Provider Slime Sanchez DO Other Provider Jacques Aly MD Other Provider Dionisio Carrasquillo DO Other Provider Tashi Peterson MD Other Provider Olga Doshi MD Other Provider Moncho George DO Other Provider [phone] Ludin Pritchett MD Other Provider Unavailable Marisela Mccollum APRN Other Provider Terri Siddiqui MD Other Provider Brent Hubbard MD Other Provider Donovan Weir MD Other Provider Unavailable Kera Woody MD Other Provider Moncho Hilton DO Other Provider Fiona Lazo MD Other Provider Carlin Mix MD Other Provider Ivis RECEIVING LEAD-C, Afua J Other Provider Camila Durán APRN Other Provider Unavailable Barbara HOLLY, Lawrence Christianson Other Provider Ti HOLLY, Homar Other Provider Oseas Moulton MD Other Provider Zofia HOLLY, Zan Other Provider Unavailable Radha HOLLY, Norbert Other Provider Sparkle Mckeon DO Other Provider Dia DOFelipe Other Provider Laine Aguilar APRN Other Provider Tyshawn Estrella DO Other Provider Thai HOLLY, Camila Peacock Other Provider Hanna Mcdaniels APRN Other Provider Delisa Sanchez APRN Other Provider Rosalva HOLLY, Liat Other Provider Otf Escobar MD Other Provider Mazin Siegel DO Other Provider Constantin Santiago DO Other Provider Saige HOLLY, Robi Nam Other Provider Roselyn Delgado MD Other Provider Maria Elena Young APRN Other Provider Benitez HOLLY, Yaritza Other Provider Arturo Delvalle MD Other Provider Daryn Espinoza MD Other Provider Renetta HOLLY, Ludin Allen Other Provider [phone] Phan Wilson MD Other Provider Rubi Sawant APRN Other Provider Coy DRUMMOND, Corky Other Provider Stephanie RN, Ammy Other Provider Unavailable Jose Billy DO Primary Care Provider Lupillo HOLLY, Reji Peacock Attending Provider Judi RN, Deepti Other Provider Unavailable Ricky RN, Juanita Other Provider Unavailable Felipe RN, Maryam Other Provider Unavailable Violetta RN, Gala Other Provider Unavailable Percy RN, Tawny Other Provider Unavailable Roshan Garibay MD Other Provider Slime Sanchez DO Other Provider Jacques Aly MD Other Provider Dionisio Carrasquillo DO Other Provider Nicholas HOLLY, Tashi Other Provider Olga Doshi MD Other Provider Moncho George DO Other Provider Shreyas HOLLY, Ludin Other Provider Unavailable Marisela Mccollum APRN Other Provider Terri Siddiqui MD Other Provider Brent Hubbard MD Other Provider Donovan Weir MD Other Provider Unavailable Kera Woody MD Other Provider Moncho Hilton DO Other Provider Fiona Lazo MD Other Provider Carlin Mix MD Other Provider Ivis RECEIVING LEAD-C, Afua Barboza Other Provider Camila Durán APRN Other Provider Unavailable Lawrence Jimenez MD Other Provider Ti HOLLY, Homar Other Provider Saige HOLLY, Oseas Other Provider Zofia HOLLY, Zan Other Provider Unavailable Norbert Garcia MD Other Provider Mike DOSparkle Other Provider Dia DO, Felipe Luke Other Provider Laine Aguilar APRN Other Provider Tyshawn Estrella DO Other Provider Thai HOLLY, Camila Peacock Other Provider Hanna Mcdaniels APRN Other Provider Delisa Sanchez APRN Other Provider Rosalva HOLLY, Liat Other Provider Otf Escobar MD [facility] Other Provider Constantin Santiago DO Other Provider Saige HOLLY, Robi Nam Other Provider Roselyn Delgado MD Other Provider Maria Elena Young APRN Other Provider Benitez HOLLY, Yaritza Other Provider Adelia HOLLY, Arturo Other Provider Daryn Espinoza MD Other Provider Renetta HOLLY, Ludin Allen Other Provider Phan Wilson MD Other Provider Rubi Sawant APRN Other Provider Corky Cespedes APRN Other Provider Stephanie RN, Ammy Other Provider Unavailable Jose Billy DO Primary Care Provider Lupillo HOLLY, Reji Peacock Attending Provider [phone] Liat Blackwell MD Other Provider Unavailable Maria Elena Yuong APRN Other Provider Unavailable [facility] Primary [place] [facility] Provider [phone] Lupillo HOLLY, Reji Peacock Attending Provider Jose Billy DO Attending Provider Lupillo ABEL, Reji Peacock Attending [facility] Un[facility] Nolan II, Reji M Admitting Unavailabl e Nolan II, Reji M Attending [facility]abl e [facility]available Nolan II, Reji M Admitting Unavailabl e Nolan II, Reji M Attending [facility]ailabl e [facility]available Nolan II, Reji M Admitting Unavailabl e Nolan II, Reji M Admitting Unavailabl e Nolan II, Reji M Attending [facility]availabl e [facility]available Nolan II, Reji M Admitting Unavailabl e Nolan II, Reji M Attending [facility]abl e [facility]available Nolan II, Reji M Admitting Unavailabl e Nolan II, Reji M Attending [facility]availabl e [facility]available Nolan II, Reji M Admitting Unavailabl e Nolan II, Reji M Attending Unavailabl e [facility] Unavailable Deepti Lau Consulting Unavailable Nolan II, Reji M Attending [facility]availabl e [facility]available Nolan II, Reji M Admitting Unavailabl e Juanita García Consulting Unavailable Maryam Wang Consulting Unavailable Gala Shipley Consulting Unavailable Tawny Greer Consulting Unavailable Roshan Garibay Consulting Unavailable Slime Sanchez Consulting Unavailable Jacques Aly Consulting Unavailable Dionisio Carrasquillo Consulting Unavailabl Tashi Smiley Consulting Unavailable Olga Doshi Consulting Unavailable Moncho George Consulting Unavailable Ludin Pritchett Consulting Unavailable Marisela Mccollum Consulting Unavailabl e Terri Siddiqui Consulting Unavailable Brent Hubbard Consulting Unavailable Donovan Weir Consulting Unavailable Kera Woody Consulting Unavailable Moncho Hilton Consulting Unavailable Fiona Lazo Consulting Unavailable Carlin Mix Consulting Unavailable Afua Langston Consulting Unavailable Camila Durán Consulting Unavailable DoLawrence corey Consulting Unavailab le Ti, Homar Consulting Unavailable Oseas Moulton Consulting Unavailable Almoselli, Khaled Consulting Unavailable Radha, Norbert Consulting Unavailable Sparkle Mckeon Consulting Unavailable Felipe Alvares Consulting Unavailable Laine Aguilar Consulting Unavailable Tyshawn Estrella Consulting Unavailable Daromar, Obayjayh M Consulting Unavailable Hanna Mcdaniels Consulting Unavailable Delisa Sanchez Consulting Unavailable Alahmad, Alaa Consulting Unavailable Otf Escobar Consulting Unavailable Mazin Siegel Consulting Unavailable Constantin Santiago Consulting Unavailable Robi Moulton Consulting Unavailable Roselyn Delgado Consulting Unava ilable Maria Elena Young Consulting Unavailable Yaritza Marquis Consulting Unavailable Arturo Delvalle Consulting Unavailable Ammy Brown Consulting Unavailable Jose Billy Primary Care Unavailable Reji Wesley II Admitting UnavailReji Spencer II Attending UnavailDeepti Garcia Consulting Unavailable Juanita García Consulting Unavailable Maryam Wang Consulting Unavailable Gala Shipley Consulting Unavailable Tawny Greer Consulting Unavailable Roshan Garibay Consulting Unavailable Slime Sanchez Consulting Unavailable Jacques Aly Consulting Unavailable Dionisio Carrasquillo Consulting UnavailTashi [place] Consulting Unavailable Olga Doshi Consulting Unavailable Moncho George Consulting Unavailable Ludin Pritchett Consulting Unavailable Marisela Mccollum Consulting UnavailTerri Donohue Consulting Unavailable Brent Hubbard Consulting Unavailable Donovan Weir Consulting Unavailable Annalise, Safwan Consulting Unavailable Moncho Hilton Consulting Unavailable Fiona Lazo Consulting Unavailable Carlin Mix Consulting Unavailable Afua Langston Consulting Unavailable Camila Durán Consulting Unavailable Doamekimberly, Lawrence E Consulting Unavailab le Ti, Homar Consulting Unavailable Saige, Oseas Consulting Unavailable Almoselli, Khaled Consulting Unavailable Radha, Norbert Consulting Unavailable Sparkle Mckeon Consulting Unavailable Felipe Alvares Consulting Unavailable Jfef, Laine Consulting Unavailable Tyshawn Estrella Consulting Unavailable Daromar, Obaydah M Consulting Unavailable Hanna Mcdaniels Consulting Unavailable Delisa Sanchez Consulting Unavailable Liat Blackwell Consulting Unavailable Otf Escobar Consulting Unavailable Mazin Siegel Consulting Unavailable Constantin Santiago Consulting Unavailable Robi Moulton Consulting Unavailable Roselyn Delgado Consulting UnaMaria Elena Mcnamara Consulting Unavailable Yaritza Marquis Consulting Unavailable Arturo Delvalle Consulting Unavailable Daryn Espinoza Consulting Unavailable Ludin Jackson Consulting Unavailable Phan Wilson Consulting Unavailable Rubi Sawant Consulting Unavailable Bolzan-Kenneth Nicolettkary Consulting UnavailAmmy Navarrete Consulting Unavailable Reji Wesley II Admitting Unavailronnie Wesley II, Reji Peacock Attending UnavailJose Maguire Primary Care Unavailable Jose Billy Primary Care Unavailable Jose Billy Admitting Unavailable Jose Billy Attending Unavailable Reji Wesley II Admitting UnavailReji Spencer II Attending UnavailJose Maguire Primary Care Unavailable Reji Wesley II Attending UnavailJose Maguire Primary Care Unavailable Reji Wesley II Admitting UnavailJose Maguire Admitting Unavailable Jose Billy Attending Unavailable Jose Billy Primary Care Unavailable Jose Billy DO Primary Care Provider Reji Wesley MD Attending Provider Medications Current Medications Medication Drug Class(es) Dates Sig (Normalized) Sig (Original) acetaminophen 500 mg oral tablet (20 sources) Start: 10-07-2024 take 2 tablets by mouth every eight hours Acetaminophen 500 mg tablet Active 1000 MG PO Q8H 180 October 07, 2024 1:00am DO NOT RECONCILE UNTIL DOS:10/12/2024 MED TO BED Start: 06-22-2024 End: 09-28-2024 take 2 tablets by mouth every eight hours Acetaminophen 500 mg tablet Discontinued 1000 MG PO Q8H 180 June 22, 2024 1:00am September 28, 2024 12:42pm DO NOT RECONCILE UNTIL DOS: 07/06/24 MED TO BED Start: 06-22-2024 take 1000 mg by mout h every eight hours Acetaminophen Active 1000 MG PO Q8H 180 June 22, 2024 12:00am DO NOT RECONCILE UNTIL DOS: 07/06/24 MED TO BED Aspir-81 (4 sources) Aspir-81 Active Bioflex (4 sources) Bioflex Active Calcium Citrate (4 sources) Citracal + D Act judie Centrum Silver 50+Men (4 sources) Centrum Silver 5 0+Men Active Centrum Silver 50+Men - (7 sources) take 1 tablet by mouth once daily Centrum Silver 50+Men - 1 TABLET Orally ONCE A DAY Active chondroitin sulfates 600 mg / glucosamine hydrochloride 750 mg oral tablet (12 sources) Start: 09-28-19 25 take 1 tablet by mouth twice daily Glucosamine-Chondroiti n 750-600 mg tablet Active 1 TAB PO Twice daily September 28, 2024 1:00am Citrulline (4 sources) Citrulline - as directed Active Creatine (4 sources) Creatine Monohyd rate - as directed Orally Active diphenhydrAMINE hydrochloride 25 mg oral capsule (12 sources) Histamine-1 Receptor Antagonist Start: 09-28-19 25 take 1 capsule by mouth every eight hours as needed Diphenhydramine Hcl (Allergy (Diphenhydramine)) 25 mg capsule Active 25 MG PO Every 8 hours as needed for allergy symptoms September 28, 2024 1:00am EZ-Mag (12 sources) Start: 09-28-19 25 take 1 tablet by mouth once daily in the evening EZ-Mag Active 1 TAB PO Every evening September 28, 2024 1:00am Start: 09-28-2024 take 1 tablet by jasmin th once daily in the evening EZ-Mag Active 1 TAB PO Every evening September 28, 2024 12:00am Glucosamine Chond Cmp Triple - (7 sources) take 1 tablet by mouth twice daily Glucosamine Chond Cmp Triple - 1 TABLET Orally TWICE A DAY Active loratadine 10 mg oral tablet (12 sources) Start: 5 take 1 capsule by mouth once daily as needed Loratadine (Allergy Relief (Loratadine)) 10 mg capsule Active 10 MG PO Daily as needed for allergy symptoms September 28, 2024 1:00am losartan potassium 50 mg oral tablet (20 sources) Angiotensin 2 Receptor Sabina Start: 5 take 1 tablet by mouth once daily in the morning Losartan 50 mg tablet Active 50 MG PO Every morning September 28, 2024 1:00am TAKE 1 TABLET BY MOUTH DAILY Start: 07-10-2024 End: 09-28-2024 take 1 tablet by mouth once daily Losartan 50 mg tablet Discontinued 0 .ROUTE .COMPLEX July 10, 2024 11:34am September 28, 2024 12:48pm TAKE 1 TABLET BY MOUTH DAILY Start: 10-21-2023 End: 10-22-2023 take 1 tablet by mouth once daily Losartan 25 mg tablet Discontinued 25 MG PO Daily October 21, 2023 11:57am October 22, 2023 2:30pm Start: 10-03-2023 End: 07-10-2024 take 1 tablet by mouth once daily in the morning Losartan 50 mg tablet Discontinued 50 MG PO Every morning June 19, 2024 12:00am July 10, 2024 11:34am take 1 tablet by jasmin th every twenty-four hours Losartan Potassium 25 MG 1 tablet Orally Once a day Active magnesium oxide 400 mg oral tablet (20 sources) Start: 05-11-2024 take 1 tablet by mouth once daily at mealtime Magnesium Oxide 400 mg (241.3 mg magnesium) tablet Active 1 TAB PO Daily May 11, 2024 12:00am FreeTextSi tablet with food Orally TWICE A DAY; Note: Source Status: Taking; Provider: Mariajose Tong Start: 05-11-2024 take 1 tablet by jasmin th twice daily at mealtime Magnesium Oxide 400 mg (241.3 mg magnesium) tablet Active 1 TAB PO Twice daily May 10, 2024 11:00pm FreeTextSi tablet with food Orally TWICE A DAY; Note: Source Status: Taking; Provider: Mariajose Tong Start: 11-22-2020 take 1 tablet by jasmin th every twelve hours Magnesium Oxide 400 MG 1 tablet with food Orally TWICE A DAY Nov, Active Start: 11-22-2020 take 1 tablet by jasmin th every twenty-four hours Magnesium Oxide 400 MG 1 tablet as needed Orally Once a day Nov, Active meloxicam 15 mg oral tablet (20 sources) Nonsteroidal Anti-inflammatory Drug Start: 09-01-2024 take 1 tablet by mouth once daily Meloxicam 15 mg tablet Active 15 MG PO daily September 01, 2024 1:00am On Hold: Resume on 11/12/24. Start: 06-19-2024 End: 07-07-2024 take 1 tablet by mouth once daily in the morning Meloxicam 15 mg tablet Discontinued 15 MG PO Every morning June 19, 2024 12:00am July 07, 2024 10:57am Start: 01-27-2024 End: 06-19-2024 take 1 tablet by mouth once daily Meloxicam 15 mg tablet Discontinued 0 .ROUTE .COMPLEX February 28, 2024 7:48am June 19, 2024 8:29am TAKE 1 TABLET BY MOUTH DAILY Start: 10-22-2023 End: 01-27-2024 take 1 tablet by mouth once daily Meloxicam 15 mg tablet Discontinued 15 MG PO daily October 22, 2023 1:00am January 27, 2024 7:53am Start: 07-31-2023 take 1 tablet by jasmin th every twenty-four hours Meloxicam 15 MG 1 tablet Orally Once a day for 30 days Jul, Active Multivit With Min-Folic Acid (Centrum Adult 50 Plus) 80 mcg tablet,chewable (20 sources) Start: 05-11-2024 take 1 tablet by mouth once daily in the morning Multivit With Min-Folic Acid (Centrum Adult 50 Plus) 80 mcg tablet,chewable Active 1 TAB PO Every morning May 10, 2024 11:00pm Start: 05-11-2024 take 1 tablet by jasmin th once daily in the morning Multivit With Min-Folic Acid (Centrum Adult 50 Plus) 80 mcg tablet,chewable Active 1 TAB PO Every morning May 11, 2024 12:00am Start: 05-11-2024 take 1 tablet by jasmin th once daily Multivit With Min-Folic Acid (Centrum Adult 50 Plus) 80 mcg tablet,chewable Active 1 TAB PO Daily May 11, 2024 12:00am 12 hr pseudoephedrine hydrochloride 120 mg extended release oral tablet (12 sources) alpha-Adrenergic Agonist Start: 09-28-2024 take 1 tablet by mouth twice daily as needed for congestion Pseudoephedrine Hcl (Nasal Decongestant (Pseudoeph)) 120 mg tablet extended release Active 120 MG PO Twice daily as needed for nasal congestion September 28, 2024 1:00am renafood (19 sources) Start: 06-19-2024 take 1 tablet by mouth twice daily renafood Active 1 TAB PO Twice daily June 18, 2024 11:00pm Start: 06-19-2024 take 1 tablet by jasmin th twice daily renafood Active 1 TAB PO Twice daily June 19, 2024 12:00am Saw-Vit E-Sod Xlh-Znr-Tibc-Pyg (Prostate Health) 160-100-100 mg-unit-mcg tablet (19 sources) Start: 06-19-2024 take 1 tablet by mouth twice daily Saw-Vit E-Sod Bgm-Rwt-Yviv-Pyg (Prostate Health) 160-100-100 mg-unit-mcg tablet Active 1 TAB PO Twice daily June 18, 2024 11:00pm Start: 06-19-2024 take 1 tablet by jasmin th twice daily Saw-Vit E-Sod Hat-Xlu-Raeq-Pyg (Prostate Health) 160-100-100 mg-unit-mcg tablet Active 1 TAB PO Twice daily June 19, 2024 12:00am symplex m (19 sources) Start: 06-19-2024 take 1 tablet by jasmin twice daily symplex m Active 1 TAB PO Twice daily June 18, 2024 11:00pm Start: 06-19-2024 take 1 tablet by jasmin twice daily symplex m Active 1 TAB PO Twice daily June 19, 2024 12:00am Turmeric extract (20 sources) Start: 05-11-2024 take 1 capsule by mo uth twice daily Turmeric 400 mg capsule Active 1600 MG PO Twice daily May 11, 2024 12:00am Start: 05-11-2024 take 1 capsule by mo uth twice daily Turmeric 400 mg capsule Active 1600 MG PO Twice daily May 10, 2024 11:00pm Start: 05-11-2024 take 1600 mg by mouth twice da sarthak Turmeric Active 1600 MG PO Twice daily May 10, 2024 11:00pm Start: 05-11-2024 take 1600 mg by mouth twice da sarthak Turmeric Active 1600 MG PO Twice daily May 11, 2024 12:00am Start: 05-11-2024 Turmeric Activ e MG PO May 11, 2024 12:00am take 1 capsule by mo uth twice daily Turmeric 1053 MG 1 CAPSULE Orally TWICE A DAY Active Turmeric Active Completed/Discontinued Medications Medication Drug Class(es) Dates Sig (Normalized) Sig (Original) aspirin 81 mg delayed release oral tablet (20 sources) Platelet Aggregation Inhibitor, Nonsteroidal Anti-inflammatory Drug Start: 10-07-2024 End: 01-06-2025 take 1 tablet by mouth twice daily Aspirin 81 mg tablet,delayed release (DR/EC) Discontinued 81 MG PO Twice daily 70 35 October 07, 2024 1:00am January 06, 2025 1:08pm DO NOT RECONCILE UNTIL DOS:10/12/2024 MED TO BED Start: 09-28-2024 take 1 tablet by jasmin th once daily in the evening Aspirin 81 mg Tablet,Delayed Release (Dr/Ec) Active 81 MG PO Every evening September 28, 2024 1:00am On Hold: Resume on 11/17/24. Start: 06-22-2024 End: 09-28-2024 take 1 tablet by mouth twice daily Aspirin 81 mg Tablet,Delayed Release (Dr/Ec) Discontinued 81 MG PO Twice daily 0 July 07, 2024 1:00am September 28, 2024 12:44pm Start: 05-11-2024 End: 07-07-2024 take 1 tablet by mouth once daily in the evening Aspirin 81 mg tablet,chewable Discontinued 81 MG PO Every evening May 11, 2024 12:00am July 07, 2024 10:59am take 1 tablet by jasmin th every twenty-four hours Aspirin 81 81 MG 1 tablet Orally Once a day Active take 1 tablet by jasmin th once daily Aspirin 81 81 MG 1 tablet Orally Once a day Active calcium carbonate 1500 mg oral tablet (20 sources) Start: 05-11-2024 End: 06-19-2024 take 2 tablets by mouth once daily at mealtime Calcium Carbonate 600 mg calcium (1,500 mg) tablet Discontinued MG PO May 11, 2024 12:00am June 19, 2024 8:29am FreeTextSi tablet with meals Orally Once a day; Note: Source Status: Taking; Provider: Lupillo Mendoza II ( ) take 2 tablets by mo [facility] every twenty-four hours Calcium 600 MG 2 tablet with meals Orally Once a day Active take 2 tablets by mo ut every twenty-four hours Calcium 600 MG 2 tablet with meals Orally Once a day Active cefadroxil 500 mg oral capsule (20 sources) Cephalosporin Antibacterial Start: 10-07-2024 End: 10-28-2024 take 1 capsule by mouth every twelve hours Cefadroxil 500 mg capsule Discontinued 500 MG PO Q12H 14 October 07, 2024 1:00am October 28, 2024 9:31am DO NOT RECONCILE UNTIL DOS:10/12/2024 MED TO BED Start: 06-22-2024 End: 07-22-2024 take 1 capsule by mouth every twelve hours Cefadroxil 500 mg capsule Discontinued 500 MG PO Q12H 14 June 22, 2024 1:00am July 22, 2024 1:51pm DO NOT RECONCILE UNTIL DOS: 07/06/24 MED TO BED docusate sodium 50 mg / sennosides, senior living 8.6 mg oral tablet (20 sources) Start: 10-07-2024 End: 10-28-2024 take 2 tablets by mouth once daily Sennosides-Docusate Sodium (Senokot-S) 8.6-50 mg tablet Discontinued 2 TAB PO daily 60 October 07, 2024 1:00am October 28, 2024 9:32am DO NOT RECONCILE UNTIL DOS:10/12/2024 MED TO BED Start: 06-22-2024 End: 07-22-2024 take 2 tablets by mouth once daily Sennosides-Docusate Sodium (Senokot-S) 8.6-50 mg tablet Discontinued 2 TAB PO daily 60 June 22, 2024 1:00am July 22, 2024 1:52pm DO NOT RECONCILE UNTIL DOS: 07/06/24 MED TO BED glucosamine 500 mg oral tablet (20 sources) Start: 05-11-2024 End: 09-28-2024 take 1 tablet by mouth twice daily Glucosamine Hcl 500 mg tablet Discontinued 500 MG PO Twice daily May 11, 2024 12:00am September 28, 2024 12:41pm administer with a meal Start: 05-11-2024 take 500 mg by mouth once genaro y Glucosamine Hcl Active 500 MG PO Daily May 11, 2024 12:00am administer with a meal methylPREDNISolone 4 mg oral tablet (4 sources) Corticosteroid Start: 11-22-2020 methylPREDNISolone 4 MG as directed Orally with food for 6 days Nov, Not-Taking ondansetron 4 mg oral tablet (20 sources) Serotonin-3 Receptor Antagonist Start: 10-07-2024 End: 10-28-2024 take 1 tablet by mouth every eight hours as needed for nausea Ondansetron Hcl 4 mg tablet Discontinued 4 MG PO Q8H as needed for Nausea October 07, 2024 1:00am October 28, 2024 9:31am DO NOT RECONCILE UNTIL DOS:10/12/2024 MED TO BED Start: 06-22-2024 End: 07-22-2024 take 1 tablet by mouth every eight hours as needed for nausea Ondansetron Hcl 4 mg tablet Discontinued 4 MG PO Q8H as needed for Nausea June 22, 2024 1:00am July 22, 2024 1:51pm DO NOT RECONCILE UNTIL DOS: 07/06/24 MED TO BED oxyCODONE hydrochloride 5 mg oral tablet (20 sources) Opioid Agonist Start: 10-07-2024 End: 10-28-2024 take 1 tablet by mouth every four hours as needed for pain Oxycodone 5 mg tablet Discontinued 5 MG PO Q4H as needed for Pain 42 7 October 07, 2024 October 28, 2024 9:32am DO NOT RECONCILE UNTIL DOS:10/12/2024 MED TO BED Start: 06-22-2024 End: 07-22-2024 take 1 tablet by mouth every four hours as needed for pain Oxycodone 5 mg tablet Discontinued 5 MG PO Q4H as needed for Pain 42 June 22, 2024 July 22, 2024 1:51pm DO NOT RECONCILE UNTIL DOS: 07/06/24 MED TO BED pantoprazole 20 mg delayed release oral tablet (20 sources) Proton Pump Inhibitor Start: 10-07-2024 End: 01-06-2025 take 1 tablet by mouth once daily Pantoprazole (Protonix) 20 mg tablet,delayed release (DR/EC) Discontinued 20 MG PO daily 35 35 October 07, 2024 1:00am January 06, 2025 1:08pm DO NOT RECONCILE UNTIL DOS:10/12/2024 MED TO BED Start: 06-22-2024 End: 09-28-2024 take 1 tablet by mouth once daily Pantoprazole (Protonix) 20 mg tablet,delayed release (DR/EC) Discontinued 20 MG PO daily 35 35 June 22, 2024 1:00am September 28, 2024 12:41pm DO NOT RECONCILE UNTIL DOS: 07/06/24 MED TO BED polyethylene glycol 3350 98480 mg powder for oral solution (20 sources) Osmotic Laxative Start: 10-07-2024 End: 10-28-2024 Polyethylene Glycol 3350 (Miralax) 17 gram/dose powder Discontinued 17 GM PO daily 7 October 07, 2024 1:00am October 28, 2024 9:32am 1 packed mixed with 8 ounces of fluid. DO NOT RECONCILE UNTIL DOS:10/12/2024 MED TO BED Start: 06-22-2024 End: 07-22-2024 Polyethylene Glycol 3350 (Mi ralax) 17 gram/dose powder Discontinued 17 GM PO daily 7 June 22, 2024 1:00am July 22, 2024 1:51pm 1 packed mixed with 8 ounces of fluid. predniSONE 10 mg oral tablet (20 sources) Start: 10-07-2024 End: 10-28-2024 take 1 tablet by mouth once daily Prednisone 10 mg tablet Discontinued 10 MG PO daily 10 October 07, 2024 1:00am October 28, 2024 9:32am DO NOT RECONCILE UNTIL DOS:10/12/2024 MED TO BED Start: 06-22-2024 End: 07-22-2024 take 1 tablet by mouth once daily Prednisone 10 mg tablet Discontinued 10 MG PO daily 10 June 22, 2024 1:00am July 22, 2024 1:52pm DO NOT RECONCILE UNTIL DOS: 07/06/24 MED TO BED traMADol hydrochloride 50 mg oral tablet (20 sources) Opioid Agonist Start: 10-07-2024 End: 01-06-2025 take 1 tablet by mouth every six hours as needed for pain Tramadol 50 mg tablet Discontinued 50 MG PO Q6H as needed for Pain 40 October 07, 2024 1:00am January 06, 2025 1:07pm DO NOT RECONCILE UNTIL DOS:10/12/2024 MED TO BED Start: 06-22-2024 End: 09-28-2024 take 1 tablet by mouth every six hours as needed for pain Tramadol 50 mg tablet Discontinued 50 MG PO q6h as needed for Pain 15 03June 22, 2024 1:00am September 28, 2024 12:42pm DO NOT RECONCILE UNTIL DOS: 07/06/24 MED TO BED Problems Active Problems Problem Classification Problem Date [...] count, unspecified] Chronic Disorders of lipid metabolism (20 sources) Hyperlipidemia; Translations: [Hyperlipidemia, unspecified] Onset: 1 Resolved: 1 Chronic Essential hypertension (20 sources) Hypertensive disorder; Translations: [Essential (primary) hypertension] [...] disease] Onset: 2 Resolved: 2 Chronic Osteoarthritis (20 sources) Osteoarthritis of right knee joint; Translations: [Unilateral primary osteoarthritis, right knee] Onset: 4 Chronic Osteoporosis (20 sources) Senile osteoporosis; Translations: [Age-related osteoporosis without current pathological fracture] Onset: 5 05-11-2024 Chronic Other aftercare (20 sources) Patient encounter status; Translations: [Aftercare following joint replacement surgery] 07-21-2024 Chronic Other aftercare (20 sources) Aftercare following joint replacement surgery; Translations: [Aftercare following joint replacement] Onset: 5 07-22-2024 Chronic Other aftercare (20 sources) Long-term current use of drug therapy; Translations: [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] 05-11-2024 Episodic Other connective tissue disease (20 sources) History of total knee arthroplasty; Translations: [Presence of left artificial knee joint] 07-07-2024 Chronic Other connective tissue disease (20 sources) Presence of left artificial knee joint; Translations: [Knee joint replacement] Onset: 5 07-07-2024 Chronic Other connective tissue disease (16 sources) Presence of right artificial knee joint; Translations: [Knee joint replacement] Onset: 5 10-13-2024 Chronic Other diseases of kidney and ureters (7 [...] conditions (not mental disorders or infectious disease) (20 sources) Other specified abnormal findings of blood chemistry; Translations: [Elevated prostate specific antigen [PSA]] Onset: 1 Resolved: 1 Episodic Past or Other Problems Problem Classification Problem Date Documented Da te Episodic/Chronic Chronic kidney disease (16 sources) Chronic kidney disease; Translations: [Chronic kidney disease, stage 3a] Onset: 09-25-2021 Resolved: 01-04-2022 Immunizations and screening for infectious disease (2 sources) Encounter for immunization Onset: 07-26-2021 Resolved: 02-02-2022 Episodic Other aftercare (11 sources) 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; Translations: [Long-term (current) use of other medications] Onset: 06-06-2021 Resolved: 06-06-2021 Episodic Spondylosis; intervertebral disc disorders; other back problems (1 source) Low back pain; Translations: [Lumbar pain M54.5] Onset: 06-06-2021 Resolved: 06-06-2021 Episodic Results Test Name Value Interpretation Reference Range Facility X-ray reportOrdered By: Getachew Manriquez on 01-06-2025 Study report [facility] [address] [place] [address] XRay Report Signed Patient: Otf Terry MR#: [id number] : 1955 Acct:[id number] Age/Sex: 69 / M ADM Date: 5 Loc: [facility] Room: Type: [facility] Attending Dr: Reji Wesley II, MD Copies to: Reji Wesley MD~ Ordering Provider: Reji Wesley MD Date of Service: 01/06/25 XR/XR knee RT 2V: Z47.1 - Aftercare following joint replacement surgery ([id number]) XR/XR tibia fibula RT 2V*: Z47.1 - Aftercare following joint replacement surgery ([id number]) XR/XR femur RT 2V*: Z47.1 - Aftercare following joint replacementsurgery XR femur RT 2V*, XR tibia fibula RT 2V*, XR knee RT 2V 01/06/2025 9:53 AM SIGNS AND SYMPTOMS: ^Z47.1 - Aftercare following joint replacement surgery PROTOCOL: Frontal radiographs of the right femur, right tibia and fibula, with frontal and lateral radiographs of the right knee COMPARISON: 10/07/2024 and 11/25/2024 FINDINGS: Right femur and right tibia and fibula: There is total knee arthroplasty hardware bilaterally without hardware complication. No fracture or malalignment. The right femur is intact. The right tibia and fibula are intact. The bony ring of the pelvis is intact. Right knee: There is total right knee arthroplasty hardware. No hardware complication or malalignment. There is diffuse soft tissue swelling. XR/XR femur RT 2V* IMPRESSION: Uncomplicated total knee arthroplasty hardware bilaterally. There is diffuse soft tissue swelling along the right knee. Impression dictated by: Getachew Manriquez M.D. 01/06/2025 2:39 PM Dictation Location: [place] [address] Transcribed By: [facility] 01/06/25 143 Dictated By: Getachew Manriquez II, MD 01/06/251436 Signed By: 01/06/25 143 [facility] Work Phone: XR knee RT 2Von 01-06-2025 XR knee RT 2V [facility] [address] [place] [address] XRay Report Signed Patient: Otf Terry MR#: [id number] : 1955 Acct:[id number] Age/Sex: 69 / M ADM Date: 01/06/25 Loc: [facility] Room: Type: [facility] Attending Dr: Reji Wesley II, MD Copies to: Reji Wesley MD Ordering Provider: Reji Wesley MD Date of Service: 01/06/25 XR/XR knee RT 2V: Z47.1 - Aftercare following joint replacement surgery ([id number]) XR/XR tibia fibula RT 2V*: Z47.1 - Aftercare following joint replacement surgery ([id number]) XR/XR femur RT 2V*: Z47.1 - Aftercare following joint replacement surgery XR femur RT 2V*, XR tibia fibula RT 2V*, XR knee RT 2V 01/06/2025 9:53 AM SIGNS AND SYMPTOMS: Z47.1 - Aftercare following joint replacement surgery PROTOCOL: Frontal radiographs of the right femur, right tibia and fibula, with frontal and lateral radiographs of the right knee COMPARISON: 10/07/2024 and 11/25/2024 FINDINGS: Right femur and right tibia and fibula: There is total knee arthroplasty hardware bilaterally without hardware complication. No fracture or malalignment. The right femur is intact. The right tibia and fibula are intact. The bony ring of the pelvis is intact. Right knee: There is total right knee arthroplasty hardware. No hardware complication or malalignment. There is diffuse soft tissue swelling. XR/XR femur RT 2V* IMPRESSION: Uncomplicated total knee arthroplasty hardware bilaterally. There is diffuse soft tissue swelling along the right knee. Impression dictated by: Getachew Manriquez M.D. 01/06/2025 2:39 PM Dictation Location: [place] [address] Transcribed By: [facility] 01/06/25 1439 Dictated By: Getachew Manriquez II, MD 01/06/25 1437 Signed By: 01/06/25 1439 Normal [facility] PSA Diagnostic (Total Free)o n 11-30-2024 Prostate Spec Ag, Free 0.400 ng/mL Normal [facility] Comment on above: Performed By: #### C UU, PSATF, ADDONUAPLUS, CBC, LIPID, CMP, TSH3 #### [address] PSA Total (Not a Screen) 2.320 ng/mL Normal 0.000-4.00 0 [facility] Comment on above: Result Comment: Brycei al tumor marker results determined by assays using different manufacturers or methods may not be comparable. [facility] canal equipment mechanic and method: angelMD DXI, CHEMILUMINESCENT IMMUNOASSAY. Performed By: #### C UU, PSATF, ADDONUAPLUS, CBC, LIPID, CMP, TSH3 #### [address] PSA,FREE% 17.2 % Normal [facility] Comment on above: Result Comment: Base d on the work of Kerry et al.ADRIANA. 279(19):1542:47.1998 the percent free PSA may be used to determine the relative risk of prostate cancer in individual men.The percent probability of prostate cancer by patient age for men with non-suspicious FILIBERTO results and total PSa between 4 and 10 ng/ml is as follows: % Free PSA 50 - 64 yrs. 65 - 75 yrs. 0 - 10 56% 55% 10 - 15 24% 35% 15 - 20 17% 23% 20 - 25 10% 20% >25 5% 9% PERFORMED BY: [place] [address] PATHOLOGIST INSPECTOR BOILER LAURA MURDOCK M.D. Performed By: #### C UU, PSATF, ADDONUAPLUS, CBC, LIPID, CMP, TSH3 #### [facility] [address] Prostate Specific Ag Free [M ass/volume] in Serum or PlasmaOrdered By: Jose Billy on 11-30-2024 Free PSA [Mass/Vol] Prostate Specific Ag Free [Mass/volume] in Serum or Plasma [facility] Prostate specific Ag [Mass/v olume] in Serum or PlasmaOrdered By: Jose Billy on 11-30-2024 Prostate specific Ag [Mass/Vol] Prostate specific Ag [Mass/volume] in Serum or Plasma 0.000-4.00 0 [facility] Comment on above: Serial tumor marker results determined by assays using different manufacturers or methods may not be comparable.[facility] canal equipment mechanic and method:angelMD DXI, CHEMILUMINESCENT IMMUNOASSAY. Serum or plasma free prostat e specific antigen (PSA)/total PSA ratioOrdered By: Jose Billy on 11-30-2024 Free PSA/Total PSA [Mass fraction] Serum or plasma free prostate specific antigen (PSA)/total PSA ratio [facility] Comment on above: Based on the work of Kerry et al.ADRIANA. 279(19):1542:47.1998 the percent free PSA may be used to determine the relative risk of prostate cancer in individual men.The percent probability of prostate cancer by patient age for men with non-suspicious FILIBERTO results and total PSa between 4 and 10 ng/ml is as follows:% Free PSA 50 - 64 yrs. 65 - 75 yrs. 0 - 10 56% 55% 10 - 15 24% 35% 15 - 20 17% 23% 20 - 25 10% 20% >25 5% 9% X-ray reportOrdered By: Khari Hewitt on 11-25-2024 Study report [facility] [address] [place] [address] XRay Report Signed Patient: Otf Terry MR#: [id number] : 1955 Acct:[id number] Age/Sex: 69 / M ADM Date: 5 Loc: [facility] Room: Type: [facility] Attending Dr: Reji Wesley II, MD Copies to: Reji Wesley MD~ Ordering Provider: Reji Wesley MD Date of Service: 11/25/24 XR/XR knee RT 3V - NOT FOR ER USE: Z47.1 - Aftercare following joint replacement surgery RIGHT KNEE - 4 views CLINICAL HISTORY: Follow-up right TKA COMPARISON: Right knee 10/12/2024 FINDINGS: Soft tissue swelling is present. No hardware complication. No acute bony process. XR/XR knee RT 3V - NOT FOR ER USE IMPRESSION: SOFT TISSUE SWELLING. NO HARDWARE COMPLICATION. Impression dictated by: Daryn Hewitt Jr., D.O.11/25/2024 10:51 AM Dictation Location: RADIO-PC-23 Transcribed By: [facility] 11/25/24 105 Dictated By: Daryn Hewitt Jr, DO 11/25/24 105 Signed By: 11/25/24 1051 [facility] XR knee RT 3V - NOT FOR ER U Ellen 11-25-2024 XR knee RT 3V - NOT FOR ER USE [facility] [address] [place] [address] XRay Report Signed Patient: Otf Terry MR#: [id number] : 1955 Acct:[id number] Age/Sex: 69 / M ADM Date: 11/25/24 Loc: [facility] Room: Type: [facility] Attending Dr: Reji Wesley II, MD Copies to: Reji Wesley MD Ordering Provider: Reji Wesley MD Date of Service: 11/25/24 XR/XR knee RT 3V - NOT FOR ER USE: Z47.1 - Aftercare following joint replacement surgery RIGHT KNEE - 4 views CLINICAL HISTORY: Follow-up right TKA COMPARISON: Right knee 10/12/2024 FINDINGS: Soft tissue swelling is present. No hardware complication. No acute bony process. XR/XR knee RT 3V - NOT FOR ER USE IMPRESSION: SOFT TISSUE SWELLING. NO HARDWARE COMPLICATION. Impression dictated by: Daryn Hewitt Jr., D.O.11/25/2024 10:51 AM Dictation Location: [facility]-23 Transcribed By: [facility] 11/25/24 105 Dictated By: Daryn Hewitt Jr, DO 11/25/24 105 Signed By: 11/25/24 1051 Normal [facility] Basic Metabolic Panelon 09-20 Anion gap [Moles/Vol] 13.2 mmol/L Normal 6.0-15.0 [facility] Comment on above: Performed By: #### B MP, CBC #### [facility] [address] Calcium [Mass/Vol] 8.9 mg/dL Normal 8.6-10.3 [facility] Comment on above: Performed By: #### B MP, CBC #### [address] Chloride [Moles/Vol] 107 mmol/L Normal 98-107 [facility] Comment on above: Performed By: #### B MP, CBC #### [address] CO2 [Moles/Vol] 23.2 mmol/L Normal 21.0-31.0 [facility] Comment on above: Performed By: #### B MP, CBC #### [address] Creatinine [Mass/Vol] 1.32 mg/dL High 0.70-1.30 [facility] Comment on above: Performed By: #### B MP, CBC #### [address] Creatinine Clr Calc Pharmacy 68.55 Normal [facility] Comment on above: Result Comment: PERF ORMED BY: [place] [address] PATHOLOGIST INSPECTOR BOILER LAURA MURDOCK M.D. Performed By: #### B MP, CBC #### [address] Estimated GFR 58.387 mL/Min Normal [facility] Comment on above: Performed By: #### B MP, CBC #### [address] Glucose [Mass/Vol] 126 mg/dL High 70-100 [facility] Comment on above: Result Comment: [place] Glucose Reference Range is dependent on time and content of last meal. Glucose of more than 200 mg/dL in a nonstressed, ambulatory subject supports the diagnosis of Diabetes Mellitus. ADA recommended reference range Performed By: #### B MP, CBC #### [address] Potassium [Moles/Vol] 4.4 mmol/L Normal 3.5-5.1 [facility] Comment on above: Performed By: #### B MP, CBC #### [facility] [address] Sodium [Moles/Vol] 139 mmol/L Normal 136-145 [facility] Comment on above: Performed By: #### B MP, CBC #### [facility] [address] Urea nitrogen [Mass/Vol] 18 mg/dL Normal 7-25 [facility] Comment on above: Performed By: #### B MP, CBC #### [facility] [address] Basophils Auto (Bld) [#/Vol] Ordered By: Reji Wesley on 10-13-2024 Basophils (Bld) [#/Vol] Automated basophil count 0.0-0.2 [facility] Basophils/100 WBC Auto (Bld) Ordered By: Reji Wesley on 10-13-2024 Basophils/100 WBC (Bld) Automated basophil % . [facility] Calcium [Mass/volume] in Ser um or PlasmaOrdered By: Reji Wesley on 10-13-2024 Calcium [Mass/Vol] Calcium [Mass/volume ] in Serum or Plasma 8.6-10.3 [facility] Carbon dioxide, total [Moles /volume] in Serum or PlasmaOrdered By: Reji Wesley on 10-13-2024 CO2 [Moles/Vol] Carbon dioxide, tota l [Moles/volume] in Serum or Plasma 21.0-31.0 [facility] Chloride [Moles/volume] in S jackson or PlasmaOrdered By: Reji Wesley on 10-13-2024 Chloride [Moles/Vol] Chloride [Moles/vol ume] in Serum or Plasma 98-107 [facility] Complete Blood Count Auto Di ffon 10-13-2024 Basophils (Bld) [#/Vol] 0.0 10*3/uL Normal 0.0-0.2 [facility] Comment on above: Result Comment: PERF ORMED BY: [facility] [address] [facility] [place] [address] PATHOLOGIST INSPECTOR BOILER LAURA MURDOCK M.D. Performed By: #### B MP, CBC #### [facility] [address] [place] [address] [place] Basophils/100 WBC (Bld) 0.1 % Normal . [facility] Comment on above: Performed By: #### B MP, CBC #### [facility] [address] [place] [address] [place] Eosinophils (Bld) [#/Vol] 0.0 10*3/uL Normal 0.0-0.45 [facility] Comment on above: Performed By: #### B MP, CBC #### [facility] [address] [place] [address] [place] Eosinophils/100 WBC (Bld) 0.0 % Normal . [facility] Comment on above: Performed By: #### B MP, CBC #### [facility] [address] Erythrocyte distribution width (RBC) [Ratio] 14.7 % Normal 12.0-14.8 [facility] Comment on above: Performed By: #### B MP, CBC #### [facility] [address] Hematocrit (Bld) [Volume fraction] 38.6 % Low 38.8-50.0 [facility] Comment on above: Performed By: #### B MP, CBC #### [facility] [address] [place] [address] [place] Hemoglobin (Bld) [Mass/Vol] 13.4 g/dL Normal 13.0-17.0 [facility] Comment on above: Performed By: #### B MP, CBC #### [facility] [address] [place] [address] [place] Lymphocytes (Bld) [#/Vol] 0.8 10*3/uL Low 1.00-4.8 [facility] Comment on above: Performed By: #### B MP, CBC #### [facility] [address] [place] [address] [place] Lymphocytes/100 WBC (Bld) 7.8 % Normal . [facility] Comment on above: Performed By: #### B MP, CBC #### [facility] [address] MCH (RBC) [Entitic mass] 29.5 pg Normal 27.5-35.2 [facility] Comment on above: Performed By: #### B MP, CBC #### [facility] [address] MCV (RBC) [Entitic vol] 84.7 fL Normal 83.5-101 [facility] Comment on above: Performed By: #### B MP, CBC #### [facility] [address] Mean Corpuscular HGB Conc 34.8 g/dL Normal 32.5-35.6 [facility] Comment on above: Performed By: #### B MP, CBC #### [facility] [address] Monocytes (Bld) [#/Vol] 1.1 10*3/uL High 0.0-0.8 [facility] Comment on above: Performed By: #### B MP, CBC #### [facility] [address] [place] [address] [place] Monocytes/100 WBC (Bld) 9.9 % Normal . [facility] Comment on above: Performed By: #### B MP, CBC #### [facility] [address] Neutrophils (Bld) [#/Vol] 8.8 10*3/uL High 1.8-7.7 [facility] Comment on above: Performed By: #### B MP, CBC #### [facility] [address] [place] [address] [place] Neutrophils/100 WBC (Bld) 82.2 % Normal . [facility] Comment on above: Performed By: #### B MP, CBC #### [facility] [address] NRBC% 0.1 /100{WBC} Normal 0-0.5 [facility] Comment on above: Performed By: #### B MP, CBC #### [facility] [address] Platelet mean volume (Bld) [Entitic vol] 8.4 fL Normal 6.6-10.1 [facility] Comment on above: Performed By: #### B MP, CBC #### [facility] [address] Platelets (Bld) [#/Vol] 176 10*3/uL Normal 150-450 [facility] Comment on above: Performed By: #### B MP, CBC #### [facility] [address] RBC (Bld) [#/Vol] 4.56 10*6/uL Normal 3.90-5.60 [facility] Comment on above: Performed By: #### B MP, CBC #### [facility] [address] WBC (Bld) [#/Vol] 10.8 10*3/uL High 4.1-10.5 [facility] Comment on above: Performed By: #### B MP, CBC #### [facility] [address] Creatinine [Mass/volume] in Serum or PlasmaOrdered By: Reji Wesley on 10-13-2024 Creatinine [Mass/Vol] Creatinine [Mass/v olume] in Serum or Plasma High 0.70-1.30 [facility] Eosinophils Auto (Bld) [#/Vo l]Ordered By: Reji Wesley on 10-13-2024 Eosinophils (Bld) [#/Vol] Automated eosinophil count 0.0-0.45 [facility] Eosinophils/100 WBC Auto (Bl d)Ordered By: Reji Wesley on 10-13-2024 Eosinophils/100 WBC (Bld) Automated eosinophil % . [facility] Erythrocyte distribution wid th Auto (RBC) [Ratio]Ordered By: Reji Wesley on 10-13-2024 Erythrocyte distribution width (RBC) [Ratio] Erythrocyte distribution width [Ratio] by Automated count 12.0-14.8 [facility] Glucose [Mass/volume] in Ser um or PlasmaOrdered By: Reji Wesley on 10-13-2024 Glucose [Mass/Vol] Glucose [Mass/volume ] in Serum or Plasma High 70-100 [facility] Comment on above: ADA recommended refe rence rangeRandom Glucose Reference Range is dependent on time and content of last meal. Glucose of more than 200 mg/dL in a nonstressed, ambulatory subject supports the diagnosis of Diabetes Mellitus. Hematocrit Auto (Bld) [Volum e fraction]Ordered By: Reji Wesley on 10-13-2024 Hematocrit (Bld) [Volume fraction] Hematocrit [Volume Fraction] of Blood by Automated count Low 38.8-50.0 [facility] Hemoglobin [Mass/volume] in BloodOrdered By: Reji Wesley on 10-13-2024 Hemoglobin (Bld) [Mass/Vol] Hemoglobin [Mass/volume] in Blood 13.0-17.0 [facility] Leukocytes [#/volume] correc nilam for nucleated erythrocytes in Blood by Automated counOrdered By: Reji Wesley on 10-13-2024 WBC corrected for nucl RBC Auto (Bld) [#/Vol] Leukocytes [#/volume] corrected for nucleated erythrocytes in Blood by Automated coun High 4.1-10.5 [facility] Lymphocytes Auto (Bld) [#/Vo l]Ordered By: Reji Wesley on 10-13-2024 Lymphocytes (Bld) [#/Vol] Lymphocytes [#/volume] in Blood by Automated count Low 1.00-4.8 [facility] Lymphocytes/100 WBC Auto (Bl d)Ordered By: Reji Wesley on 10-13-2024 Lymphocytes/100 WBC (Bld) Lymphocytes/100 leukocytes in Blood by Automated count . [facility] MCH Auto (RBC) [Entitic mass ]Ordered By: Reji Wesley on 10-13-2024 MCH (RBC) [Entitic mass] MCH [Entitic mass] by Automated count 27.5-35.2 [facility] MCHC Auto (RBC) [Mass/Vol]Or dered By: Reji Wesley on 10-13-2024 MCHC (RBC) [Mass/Vol] MCHC [Mass/volume] by Automated count 32.5-35.6 [facility] MCV Auto (RBC) [Entitic vol] Ordered By: Reji Wesley on 10-13-2024 MCV (RBC) [Entitic vol] MCV [Entitic vol ume] by Automated count 83.5-101 [facility] Monocytes Auto (Bld) [#/Vol] Ordered By: Reji Wesley on 10-13-2024 Monocytes (Bld) [#/Vol] Automated blood monocyte count High 0.0-0.8 [facility] Monocytes/100 WBC Auto (Bld) Ordered By: Reji Wesley on 10-13-2024 Monocytes/100 WBC (Bld) Automated monocyte % . [facility] Neutrophils Auto (Bld) [#/Vo l]Ordered By: Reji Wesley on 10-13-2024 Neutrophils (Bld) [#/Vol] Neutrophils [#/volume] in Blood by Automated count High 1.8-7.7 [facility] Neutrophils/100 WBC Auto (Bl d)Ordered By: Reji Wesley on 10-13-2024 Neutrophils/100 WBC (Bld) Automated neutrophil % . [facility] No Panel InformationOrdered By: Reji Wesley on 10-13-2024 Estimated GFR (CKD-EPI) 58.387 mL/Min [facility] Creatinine Clearance (Chem 68.55 [facility] Nucleated erythrocytes [Pres ence] in Blood by Automated countOrdered By: Reji Wesley on 10-13-2024 Nucleated RBC Auto Ql (Bld) Nucleated erythrocytes [Presence] in Blood by Automated count 0-0.5 [facility] Platelet mean volume Auto (B ld) [Entitic vol]Ordered By: Reji Wesley on 10-13-2024 Platelet mean volume (Bld) [Entitic vol] Platelet mean volume [Entitic volume] in Blood by Automated count 6.6-10.1 [facility] Platelets Auto (Bld) [#/Vol] Ordered By: Reji Wesley on 10-13-2024 Platelets (Bld) [#/Vol] Platelets [#/vol ume] in Blood by Automated count 150-450 [facility] Potassium [Moles/volume] in Serum or PlasmaOrdered By: Reji Wesley on 10-13-2024 Potassium [Moles/Vol] Potassium [Moles/v olume] in Serum or Plasma 3.5-5.1 [facility] RBC Auto (Bld) [#/Vol]Ordere d By: Reji Wesley on 10-13-2024 RBC (Bld) [#/Vol] Erythrocytes [#/volu me] in Blood by Automated count 3.90-5.60 [facility] Serum or plasma anion gap de terminationOrdered By: Reji Wesley on 10-13-2024 Anion gap [Moles/Vol] Serum or plasma an ion gap determination 6.0-15.0 [facility] Sodium [Moles/volume] in Ser um or PlasmaOrdered By: Reji Wesley on 10-13-2024 Sodium [Moles/Vol] Sodium [Moles/volume ] in Serum or Plasma 136-145 [facility] Urea nitrogen [Mass/volume] in Serum or PlasmaOrdered By: Reji Wesley on 10-13-2024 Urea nitrogen [Mass/Vol] Urea nitrogen [Mass/volume] in Serum or Plasma 7-25 [facility] WBC Auto (Bld) [#/Vol]Ordere d By: Reji Wesley on 10-13-2024 WBC (Bld) [#/Vol] Leukocytes [#/volume ] in Blood by Automated count High 4.1-10.5 [facility] Leo 10-12-2024 L ------- Specimen: [id number] Received: 10/12/24 Status: MARY Lima Num: [id number] Spec Type: Surgical Subm Dr: Reji Wesley MD Tissues: A Gross Only (RT KNEE-GROSS ONLY) Procedures: Level 1 Gross Age/ Patient Sex Location Account Attending Physician Otf Terry/Ayush ME [id number] Reji Wesley MD SPEC NUM: [id number] RECD: 10/12/24 STATUS: MARY LIMA NUM: [id number] ALLISON: 10/12/24-[address]: Reji Wesley MD ENTERED: 10/12/[address]: CURTIS TYPE: Surgical DEPT: S ORDERED: Level 1 Gross ORDERED: Level 1 Gross Pathological Diagnosis Bone and tissue, right knee, arthroplasty: Degenerative changes consistent with osteoarthritis. Gross examination only. Clinical Information Degenerative joint disease, are knee Gross Description Part A is received in formalin labeled with the patients name, date of , and bone and tissue, R knee are ayers-manzo, granular bone fragments, 8 x 6 x 3.5 cm in aggregate with detached fragments of fibrofatty tissue, 7 x 5 x 2 cm in aggregate. The bone is consistent with portions of femoral condyle and tibial plateau. The articular surfaces are remarkable for granular degeneration and eburnation; The medullary bone is manzo, firm and uniform. The fibrofatty tissue is sectioned to reveal ayers-pink to yellow-manzo, glistening, and uniform cut surfaces. GROSS ONLY-JG CPT Codes 60566 Specimen: [id number] Received: 10/12/24 Status: MARY Lima Num: [id number] Spec Type: Surgical Subm Dr: Reji Wesley MD Tissues: A Gross Only (RT KNEE-GROSS ONLY) Procedures: Level 1 Gross Patient: Otf Terry [id number] (Continued) Signed (signature on file) Laura Murdock MD 10/13/24 1421 Normal [facility] X-ray reportOrdered By: Khari Hewitt on 10-12-2024 Study report [address] [address] XRay Report Signed Patient: Otf Terry MR#: [id number] : 1955 Acct:[id number] Age/Sex: 69 / M ADM Date: 5 Loc: 4N Room: [address] [place] [address] Type: REG SDC Attending Dr: Reji Wesley II, MD Copies to: Reji Wesley MD~ Ordering Provider: Reji Wesley MD Date of Service: 10/12/24 XR/XR knee RT 2V: POST OP RIGHT KNEE - 2 views CLINICAL HISTORY: Postop right TKA COMPARISON: None FINDINGS: Soft tissues demonstrate postoperative changes. No hardware complication. XR/XR knee RT 2V IMPRESSION: NO HARDWARE COMPLICATION. Impression dictated by: Daryn Hewitt Jr., D.OHenrique10/12/2024 4:10 PM Dictation Location: [place] [address] Transcribed By: [facility] 10/12/24 1610 Dictated By: Daryn Hewitt Jr, DO 10/12/24 1610 Signed By: 10/12/24 1610 [facility] XR knee RT 2Von 10-12-2024 XR knee RT 2V [address] [address] XRay Report Signed Patient: Otf Terry MR#: [id number] : 1955 Acct:[id number] Age/Sex: 69 / M ADM Date: 10/12/24 Loc: 4N Room: [address] [place] [address] Type: REG SDC Attending Dr: Reji Wesley II, MD Copies to: Reji Wesley MD Ordering Provider: Reji Wesley MD Date of Service: 10/12/24 XR/XR knee RT 2V: POST OP RIGHT KNEE - 2 views CLINICAL HISTORY: Postop right TKA COMPARISON: None FINDINGS: Soft tissues demonstrate postoperative changes. No hardware complication. XR/XR knee RT 2V IMPRESSION: NO HARDWARE COMPLICATION. Impression dictated by: Daryn Hewitt Jr., D.O.10/12/2024 4:10 PM Dictation Location: [facility]-23 Transcribed By: [facility] 10/12/24 1610 Dictated By: Daryn Hewitt Jr, DO 10/12/24 1610 Signed By: 10/12/24 1610 Normal [facility] X-ray reportOrdered By: Kingsley Eubanks on 10-07-2024 Study report [facility] [address] [place] [address] XRay Report Signed Patient: Otf Terry MR#: [id number] : 1955 Acct:[id number] Age/Sex: 69 / M ADM Date: 5 Loc: [facility] Room: Type: [facility] Attending Dr: Reji Wesley II, MD Copies to: Reji Wesley MD~ Ordering Provider: Reji Wesley MD Date of Service: 10/07/24 XR/XR femur BI: M17.11 - Unilateral primary osteoarthritis, right knee ([id number]) XR/XR tibia/fibula BI: M17.11 - Unilateral primary osteoarthritis, right knee ([id number]) XR/XR knee LT 2V: PRE/POST OP CARE Plain films bilateral femur and tibia and fibula HISTORY: Preop assessment for right total knee arthroplasty. Status post left knee arthroplasty Unremarkable hip joints. Symmetric pelvis. Left knee arthroplasty unremarkable. Extensive medial Saturday degeneration. Intact tibia and fibula. Unremarkable ankle joints. XR/XR femur BI IMPRESSION: Extensive right knee degeneration 2 views of the left knee No hardware failure. Adequate bony alignment. No acute bony findings. Anterior soft tissue prominence IMPRESSION: Uncomplicated left knee arthroplasty Impression dictated by: Kit Eubakns M.D.10/07/2024 9:53 AM Dictation Location: [facility]16 Transcribed By: [facility] 10/07/24 0953 Dictated By: Kit Eubanks DO 10/07/24 0951 Signed By: 10/07/24 0953 [facility] XR tibia/fibula BIon 025 XR tibia/fibula BI [facility] [address] [place] [address] XRay Report Signed Patient: Otf Terry MR#: [id number] : 1955 Acct:[id number] Age/Sex: 69 / M ADM Date: 10/07/24 Loc: [facility] Room: Type: [facility] Attending Dr: Reji Wesley II, MD Copies to: Reji Wesley MD Ordering Provider: Reji Wesley MD Date of Service: 10/07/24 XR/XR femur BI: M17.11 - Unilateral primary osteoarthritis, right knee ([id number]) XR/XR tibia/fibula BI: M17.11 - Unilateral primary osteoarthritis, right knee ([id number]) XR/XR knee LT 2V: PRE/POST OP CARE Plain films bilateral femur and tibia and fibula HISTORY: Preop assessment for right total knee arthroplasty. Status post left knee arthroplasty Unremarkable hip joints. Symmetric pelvis. Left knee arthroplasty unremarkable. Extensive medial Saturday degeneration. Intact tibia and fibula. Unremarkable ankle joints. XR/XR femur BI IMPRESSION: Extensive right knee degeneration 2 views of the left knee No hardware failure. Adequate bony alignment. No acute bony findings. Anterior soft tissue prominence IMPRESSION: Uncomplicated left knee arthroplasty Impression dictated by: Kit Eubanks M.D.10/07/2024 9:53 AM Dictation Location: [place] [address] Transcribed By: [facility] 10/07/2453 Dictated By: Kit Eubanks DO 10/07/24 0951 Signed By: 10/07/2453 Normal [facility] Appearance of UrineOrdered B y: Reji Wesley on 09-28-2024 Appearance (U) Urine appearance Clear [facility] Basic Metabolic Panelon 09-19 Anion gap [Moles/Vol] 6.7 mmol/L Normal 6.0-15.0 [facility] Comment on above: Performed By: #### C UU, PSATF, ADDONUAPLUS, CBC, LIPID, CMP, TSH3 #### [address] Calcium [Mass/Vol] 9.0 mg/dL Normal 8.6-10.3 [facility] Comment on above: Result Comment: PERF ORMED BY: [place] [address] PATHOLOGIST INSPECTOR BOILER LAURA MURDOCK M.D. Performed By: #### C UU, PSATF, ADDONUAPLUS, CBC, LIPID, CMP, TSH3 #### [address] Chloride [Moles/Vol] 108 mmol/L High 98-107 [facility] Comment on above: Performed By: #### C UU, PSATF, ADDONUAPLUS, CBC, LIPID, CMP, TSH3 #### [address] CO2 [Moles/Vol] 29.8 mmol/L Normal 21.0-31.0 [facility] Comment on above: Performed By: #### C UU, PSATF, ADDONUAPLUS, CBC, LIPID, CMP, TSH3 #### [address] Creatinine [Mass/Vol] 1.08 mg/dL Normal 0.70-1.30 [facility] Comment on above: Performed By: #### C UU, PSATF, ADDONUAPLUS, CBC, LIPID, CMP, TSH3 #### [address] GFR/1.73 sq M.predicted MDRD (S/P/Bld) [Vol rate/Area] mL/min/{1.73_m2} Normal [facility] Comment on above: Performed By: #### C UU, PSATF, ADDONUAPLUS, CBC, LIPID, CMP, TSH3 #### [address] Glucose [Mass/Vol] 86 mg/dL Normal 70-100 [facility] Comment on above: Result Comment: [place] Glucose Reference Range is dependent on time and content of last meal. Glucose of more than 200 mg/dL in a nonstressed, ambulatory subject supports the diagnosis of Diabetes Mellitus. ADA recommended reference range Performed By: #### C UU, PSATF, ADDONUAPLUS, CBC, LIPID, CMP, TSH3 #### [facility] [address] Potassium [Moles/Vol] 4.5 mmol/L Normal 3.5-5.1 [facility] Comment on above: Performed By: #### C UU, PSATF, ADDONUAPLUS, CBC, LIPID, CMP, TSH3 #### [facility] [address] Sodium [Moles/Vol] 140 mmol/L Normal 136-145 [facility] Comment on above: Performed By: #### C UU, PSATF, ADDONUAPLUS, CBC, LIPID, CMP, TSH3 #### [address] Urea nitrogen [Mass/Vol] 18 mg/dL Normal 7-25 [facility] Comment on above: Performed By: #### C UU, PSATF, ADDONUAPLUS, CBC, LIPID, CMP, TSH3 #### [address] Basophils Auto (Bld) [#/Vol] Ordered By: Reji Wesley on 09-28-2024 Basophils (Bld) [#/Vol] Automated basophil count 0.0-0.2 [facility] Basophils/100 WBC Auto (Bld) Ordered By: Reji Wesley on 09-28-2024 Basophils/100 WBC (Bld) Automated basophil % . [facility] Bilirubin Test strip Ql (U)O rdered By: Reji Wesley on 09-28-2024 Bilirubin Ql (U) Bilirubin.total [Pre sence] in Urine by Test strip Negative [facility] Calcium [Mass/volume] in Ser um or PlasmaOrdered By: Reji Wesley on 09-28-2024 Calcium [Mass/Vol] Calcium [Mass/volume ] in Serum or Plasma 8.6-10.3 [facility] Carbon dioxide, total [Moles /volume] in Serum or PlasmaOrdered By: Reji Wesley on 09-28-2024 CO2 [Moles/Vol] Carbon dioxide, tota l [Moles/volume] in Serum or Plasma 21.0-31.0 [facility] Chloride [Moles/volume] in S jackson or PlasmaOrdered By: Reji Wesley on 09-28-2024 Chloride [Moles/Vol] Chloride [Moles/vol ume] in Serum or Plasma High 98-107 [facility] Color Auto (U)Ordered By: Adilene Wesley on 09-28-2024 Color (U) Color of Urine by Auto Yellow [facility] Complete Blood Count Auto Di ffon 09-28-2024 Basophils (Bld) [#/Vol] 0.0 10*3/uL Normal 0.0-0.2 [facility] Comment on above: Result Comment: PERF ORMED BY: [place] [address] PATHOLOGIST INSPECTOR BOILER LAURA MURDOCK M.D. Performed By: #### C UU, PSATF, ADDONUAPLUS, CBC, LIPID, CMP, TSH3 #### [address] Basophils/100 WBC (Bld) 0.5 % Normal . [facility] Comment on above: Performed By: #### C UU, PSATF, ADDONUAPLUS, CBC, LIPID, CMP, TSH3 #### [address] Eosinophils (Bld) [#/Vol] 0.3 10*3/uL Normal 0.0-0.45 [facility] Comment on above: Performed By: #### C UU, PSATF, ADDONUAPLUS, CBC, LIPID, CMP, TSH3 #### [address] Eosinophils/100 WBC (Bld) 7.2 % Normal . [facility] Comment on above: Performed By: #### C UU, PSATF, ADDONUAPLUS, CBC, LIPID, CMP, TSH3 #### [address] Erythrocyte distribution width (RBC) [Ratio] 14.4 % Normal 12.0-14.8 [facility] Comment on above: Performed By: #### C UU, PSATF, ADDONUAPLUS, CBC, LIPID, CMP, TSH3 #### [address] Hematocrit (Bld) [Volume fraction] 39.7 % Normal 38.8-50.0 [facility] Comment on above: Performed By: #### C UU, PSATF, ADDONUAPLUS, CBC, LIPID, CMP, TSH3 #### [address] Hemoglobin (Bld) [Mass/Vol] 13.7 g/dL Normal 13.0-17.0 [facility] Comment on above: Performed By: #### C UU, PSATF, ADDONUAPLUS, CBC, LIPID, CMP, TSH3 #### [address] Lymphocytes (Bld) [#/Vol] 1.0 10*3/uL Normal 1.00-4.8 [facility] Comment on above: Performed By: #### C UU, PSATF, ADDONUAPLUS, CBC, LIPID, CMP, TSH3 #### [address] Lymphocytes/100 WBC (Bld) 22.8 % Normal . [facility] Comment on above: Performed By: #### C UU, PSATF, ADDONUAPLUS, CBC, LIPID, CMP, TSH3 #### [address] MCH (RBC) [Entitic mass] 29.5 pg Normal 27.5-35.2 [facility] Comment on above: Performed By: #### C UU, PSATF, ADDONUAPLUS, CBC, LIPID, CMP, TSH3 #### [address] MCV (RBC) [Entitic vol] 85.4 fL Normal 83.5-101 [facility] Comment on above: Performed By: #### C UU, PSATF, ADDONUAPLUS, CBC, LIPID, CMP, TSH3 #### [address] Mean Corpuscular HGB Conc 34.6 g/dL Normal 32.5-35.6 [facility] Comment on above: Performed By: #### C UU, PSATF, ADDONUAPLUS, CBC, LIPID, CMP, TSH3 #### [address] Monocytes (Bld) [#/Vol] 0.5 10*3/uL Normal 0.0-0.8 [facility] Comment on above: Performed By: #### C UU, PSATF, ADDONUAPLUS, CBC, LIPID, CMP, TSH3 #### [address] Monocytes/100 WBC (Bld) 11.2 % Normal . [facility] Comment on above: Performed By: #### C UU, PSATF, ADDONUAPLUS, CBC, LIPID, CMP, TSH3 #### [address] Neutrophils (Bld) [#/Vol] 2.5 10*3/uL Normal 1.8-7.7 [facility] Comment on above: Performed By: #### C UU, PSATF, ADDONUAPLUS, CBC, LIPID, CMP, TSH3 #### [address] Neutrophils/100 WBC (Bld) 58.3 % Normal . [facility] Comment on above: Performed By: #### C UU, PSATF, ADDONUAPLUS, CBC, LIPID, CMP, TSH3 #### [address] NRBC% 0.0 /100{WBC} Normal 0-0.5 [facility] Comment on above: Performed By: #### C UU, PSATF, ADDONUAPLUS, CBC, LIPID, CMP, TSH3 #### [address] Platelet mean volume (Bld) [Entitic vol] 7.9 fL Normal 6.6-10.1 [facility] Comment on above: Performed By: #### C UU, PSATF, ADDONUAPLUS, CBC, LIPID, CMP, TSH3 #### [address] Platelets (Bld) [#/Vol] 179 10*3/uL Normal 150-450 [facility] Comment on above: Performed By: #### C UU, PSATF, ADDONUAPLUS, CBC, LIPID, CMP, TSH3 #### [address] RBC (Bld) [#/Vol] 4.65 10*6/uL Normal 3.90-5.60 [facility] Comment on above: Performed By: #### C UU, PSATF, ADDONUAPLUS, CBC, LIPID, CMP, TSH3 #### [address] WBC (Bld) [#/Vol] 4.3 10*3/uL Normal 4.1-10.5 [facility] Comment on above: Performed By: #### C UU, PSATF, ADDONUAPLUS, CBC, LIPID, CMP, TSH3 #### [address] Creatinine [Mass/volume] in Serum or PlasmaOrdered By: Reji Wesley on 09-28-2024 Creatinine [Mass/Vol] Creatinine [Mass/v olume] in Serum or Plasma 0.70-1.30 [facility] Eosinophils Auto (Bld) [#/Vo l]Ordered By: Reji Wesley on 09-28-2024 Eosinophils (Bld) [#/Vol] Automated eosinophil count 0.0-0.45 [facility] Eosinophils/100 WBC Auto (Bl d)Ordered By: Reji Wesley on 09-28-2024 Eosinophils/100 WBC (Bld) Automated eosinophil % . [facility] Erythrocyte distribution wid th Auto (RBC) [Ratio]Ordered By: Reji Wesley on 09-28-2024 Erythrocyte distribution width (RBC) [Ratio] Erythrocyte distribution width [Ratio] by Automated count 12.0-14.8 [facility] Fructosamineon 09-28-2024 Fructosamine 215 umol/L Normal 0-285 [facility] Comment on above: Result Comment: Publ ished reference interval for apparently healthy subjects between age 20 and 60 is 205 - 285 umol/L and in a poorly controlled diabetic population is 228 - 563 umol/L with a mean of 396 umol/L. Performed at: [facility] [id number] [employer] Tender: Tyson Salvador PhD, Phone: [phone] PERFORMED BY: [place] [address] PATHOLOGIST INSPECTOR BOILER LAURA MURDOCK M.D. Performed By: #### C UU, PSATF, ADDONUAPLUS, CBC, LIPID, CMP, TSH3 #### [address] Fructosamine [Moles/volume] in Serum or PlasmaOrdered By: Reji Wesley on 09-28-2024 Fructosamine [Moles/Vol] Fructosamine [Moles/volume] in Serum or Plasma 0-285 [facility] Comment on above: Published reference interval for apparently healthysubjects between age 20 and 60 is 205 - 285 umol/L and in apoorly controlled diabetic population is 228 - 563 umol/Lwith a mean of 396 umol/L.Performed at: [facility] [address] [id number] Director: Tyson Salvador PhD, Phone: [phone] Glucose [Mass/volume] in Ser um or PlasmaOrdered By: Reji Wesley on 09-28-2024 Glucose [Mass/Vol] Glucose [Mass/volume ] in Serum or Plasma 70-100 [facility] Comment on above: ADA recommended refe rence rangeRandom Glucose Reference Range is dependent on time and content of last meal. Glucose of more than 200 mg/dL in a nonstressed, ambulatory subject supports the diagnosis of Diabetes Mellitus. Glucose [Mass/volume] in Uri ne by Test stripOrdered By: Reji Wesley on 09-28-2024 Glucose Test strip (U) [Mass/Vol] Glucose [Mass/volume] in Urine by Test strip Normal [facility] Hematocrit Auto (Bld) [Volum e fraction]Ordered By: Reji Wesley on 09-28-2024 Hematocrit (Bld) [Volume fraction] Hematocrit [Volume Fraction] of Blood by Automated count 38.8-50.0 [facility] Hemoglobin Test strip Ql (U) Ordered By: Reji Wesley on 09-28-2024 Hemoglobin Ql (U) Hemoglobin [Presence ] in Urine by Test strip Negative [facility] Hemoglobin [Mass/volume] in BloodOrdered By: Reji Wesley on 09-28-2024 Hemoglobin (Bld) [Mass/Vol] Hemoglobin [Mass/volume] in Blood 13.0-17.0 [facility] Ketones Test strip Ql (U)Ord ered By: Reji Wesley on 09-28-2024 Ketones Ql (U) Ketones [Presence] i n Urine by Test strip Negative [facility] Leukocyte esterase [Presence ] in Urine by Test stripOrdered By: Reji Wesley on 09-28-2024 Leukocyte esterase Test strip Ql (U) Leukocyte esterase [Presence] in Urine by Test strip Negative [facility] Leukocytes [#/volume] correc nilam for nucleated erythrocytes in Blood by Automated counOrdered By: Reji Wesley on 09-28-2024 WBC corrected for nucl RBC Auto (Bld) [#/Vol] Leukocytes [#/volume] corrected for nucleated erythrocytes in Blood by Automated coun 4.1-10.5 [facility] Lymphocytes Auto (Bld) [#/Vo l]Ordered By: Reji Wesley on 09-28-2024 Lymphocytes (Bld) [#/Vol] Lymphocytes [#/volume] in Blood by Automated count 1.00-4.8 [facility] Lymphocytes/100 WBC Auto (Bl d)Ordered By: Reji Wesley on 09-28-2024 Lymphocytes/100 WBC (Bld) Lymphocytes/100 leukocytes in Blood by Automated count . [facility] MCH Auto (RBC) [Entitic mass ]Ordered By: Reji Wesley on 09-28-2024 MCH (RBC) [Entitic mass] MCH [Entitic mass] by Automated count 27.5-35.2 [facility] MCHC Auto (RBC) [Mass/Vol]Or dered By: Reji Wesley on 09-28-2024 MCHC (RBC) [Mass/Vol] MCHC [Mass/volume] by Automated count 32.5-35.6 [facility] MCV Auto (RBC) [Entitic vol] Ordered By: Reji Wesley on 09-28-2024 MCV (RBC) [Entitic vol] MCV [Entitic vol ume] by Automated count 83.5-101 [facility] Monocytes Auto (Bld) [#/Vol] Ordered By: Reji Wesley on 09-28-2024 Monocytes (Bld) [#/Vol] Automated blood monocyte count 0.0-0.8 [facility] Monocytes/100 WBC Auto (Bld) Ordered By: Reji Wesley on 09-28-2024 Monocytes/100 WBC (Bld) Automated monocyte % . [facility] Neutrophils Auto (Bld) [#/Vo l]Ordered By: Reji Wesley on 09-28-2024 Neutrophils (Bld) [#/Vol] Neutrophils [#/volume] in Blood by Automated count 1.8-7.7 [facility] Neutrophils/100 WBC Auto (Bl d)Ordered By: Reji Wesley on 09-28-2024 Neutrophils/100 WBC (Bld) Automated neutrophil % . [facility] Nitrite Test strip Ql (U)Ord ered By: Reji Wesley on 09-28-2024 Nitrite Ql (U) Nitrite [Presence] i n Urine by Test strip Negative [facility] No Panel InformationOrdered By: Reji Wesley on 09-28-2024 Estimated GFR (CKD-EPI) > 60.0 mL/Min [facility] Creatinine Clearance (Chem N/A [facility] [facility] Nucleated erythrocytes [Pres ence] in Blood by Automated countOrdered By: Reji Wesley on 09-28-2024 Nucleated RBC Auto Ql (Bld) Nucleated erythrocytes [Presence] in Blood by Automated count 0-0.5 [facility] Platelet mean volume Auto (B ld) [Entitic vol]Ordered By: Reji Wesley on 09-28-2024 Platelet mean volume (Bld) [Entitic vol] Platelet mean volume [Entitic volume] in Blood by Automated count 6.6-10.1 [facility] Platelets Auto (Bld) [#/Vol] Ordered By: Reji Wesley on 09-28-2024 Platelets (Bld) [#/Vol] Platelets [#/vol ume] in Blood by Automated count 150-450 [facility] Potassium [Moles/volume] in Serum or PlasmaOrdered By: Reji Wesley on 09-28-2024 Potassium [Moles/Vol] Potassium [Moles/v olume] in Serum or Plasma 3.5-5.1 [facility] Protein Test strip (U) [Mass /Vol]Ordered By: Reji Wesley on 09-28-2024 Protein (U) [Mass/Vol] Protein [Mass/vol ume] in Urine by Test strip Negative [facility] RBC Auto (Bld) [#/Vol]Ordere d By: Reji Wesley on 09-28-2024 RBC (Bld) [#/Vol] Erythrocytes [#/volu me] in Blood by Automated count 3.90-5.60 [facility] Serum or plasma anion gap de terminationOrdered By: Reji Wesley on 09-28-2024 Anion gap [Moles/Vol] Serum or plasma an ion gap determination 6.0-15.0 [facility] Sodium [Moles/volume] in Ser um or PlasmaOrdered By: Reji Wesley on 09-28-2024 Sodium [Moles/Vol] Sodium [Moles/volume ] in Serum or Plasma 136-145 [facility] Specific gravity Test strip (U) [Rel density]Ordered By: Reji Wesley on 09-28-2024 Specific gravity (U) [Rel density] Specific gravity of Urine by Test strip 1.001-1.03 0 [facility] Urea nitrogen [Mass/volume] in Serum or PlasmaOrdered By: Reji Wesley on 09-28-2024 Urea nitrogen [Mass/Vol] Urea nitrogen [Mass/volume] in Serum or Plasma 03-12 [facility] Urinalysison 09-28-2024 Appearance (U) Clear Normal Clear [facility] Comment on above: Order Comment: Name Collection Type:: Clean-Voided Midstream Performed By: #### C UU, PSATF, ADDONUAPLUS, CBC, LIPID, CMP, TSH3 #### [address] Bilirubin,Urine Negative Normal Negative [facility] Comment on above: Order Comment: Name Collection Type:: Clean-Voided Midstream Performed By: #### C UU, PSATF, ADDONUAPLUS, CBC, LIPID, CMP, TSH3 #### [address] Color (U) Light-Yellow Normal Yellow [facility] Comment on above: Order Comment: Name Collection Type:: Clean-Voided Midstream Performed By: #### C UU, PSATF, ADDONUAPLUS, CBC, LIPID, CMP, TSH3 #### [address] Glucose Ql (U) Normal Normal Normal [facility] Comment on above: Order Comment: Name Collection Type:: Clean-Voided Midstream Performed By: #### C UU, PSATF, ADDONUAPLUS, CBC, LIPID, CMP, TSH3 #### [address] Ketones Ql (U) Negative Normal Negative [facility] Comment on above: Order Comment: Name Collection Type:: Clean-Voided Midstream Performed By: #### C UU, PSATF, ADDONUAPLUS, CBC, LIPID, CMP, TSH3 #### [address] Leukocyte esterase Test strip Ql (U) Negative Normal Negative [facility] Comment on above: Order Comment: Name Collection Type:: Clean-Voided Midstream Performed By: #### C UU, PSATF, ADDONUAPLUS, CBC, LIPID, CMP, TSH3 #### [place] [id number] [place] Nitrite,Urine Negative Normal Negative [facility] Comment on above: Order Comment: Name Collection Type:: Clean-Voided Midstream Performed By: #### C UU, PSATF, ADDONUAPLUS, CBC, LIPID, CMP, TSH3 #### [address] Occult Blood,Urine Negative Normal Negative [facility] Comment on above: Order Comment: Name Collection Type:: Clean-Voided Midstream Result Comment: PERF ORMED BY: [place] [address] PATHOLOGIST INSPECTOR BOILER LAURA MURDOCK M.D. Performed By: #### C UU, PSATF, ADDONUAPLUS, CBC, LIPID, CMP, TSH3 #### [address] pH (U) 7.5 [pH] Normal 5.0-9.0 [facility] Comment on above: Order Comment: Name Collection Type:: Clean-Voided Midstream Performed By: #### C UU, PSATF, ADDONUAPLUS, CBC, LIPID, CMP, TSH3 #### [address] Protein,Urine Negative Normal Negative [facility] Comment on above: Order Comment: Name Collection Type:: Clean-Voided Midstream Performed By: #### C UU, PSATF, ADDONUAPLUS, CBC, LIPID, CMP, TSH3 #### [address] Specificy [place],Urine 1.006 Normal 1.00 1-1.03 0 [facility] Comment on above: Order Comment: Name Collection Type:: Clean-Voided Midstream Performed By: #### C UU, PSATF, ADDONUAPLUS, CBC, LIPID, CMP, TSH3 #### [address] Urobilinogen,Urine Normal Normal Normal [facility] Comment on above: Order Comment: Name Collection Type:: Clean-Voided Midstream Performed By: #### C UU, PSATF, ADDONUAPLUS, CBC, LIPID, CMP, TSH3 #### [facility] [address] [place] [address] [place] Urobilinogen Test strip (U) [Mass/Vol]Ordered By: Reji Wesley on 09-28-2024 Urobilinogen (U) [Mass/Vol] Urobilinogen [Mass/volume] in Urine by Test strip Normal [facility] WBC Auto (Bld) [#/Vol]Ordere d By: Reji Wesley on 09-28-2024 WBC (Bld) [#/Vol] Leukocytes [#/volume ] in Blood by Automated count 4.1-10.5 [facility] pH Test strip (U)Ordered By: Reji Wesley on 09-28-2024 pH (U) pH of Urine by Test strip 5.0-9.0 [facility] X-ray reportOrdered By: Khari Hewitt on 08-26-2024 Study report [facility] [address] [place] [address] XRay Report Signed Patient: Otf Terry MR#: [id number] : 1955 Acct:[id number] Age/Sex: 69 / M ADM Date: 5 Loc: [facility] Room: Type: [facility] Attending Dr: Reji Wesley II, MD Copies to: Reji Wesley MD~ Ordering Provider: Reji Wesley MD Date of Service: 08/26/24 XR/XR knee LT 3V - NOT FOR ER USE: Z47.1 - Aftercare following joint replacement surgery LEFT KNEE - 3 views CLINICAL HISTORY: Follow-up left TKA COMPARISON: Left knee 07/06/2024 FINDINGS: Soft tissue swelling is present. No hardware complication or acute bony process. XR/XR knee LT 3V - NOT FOR ER USE IMPRESSION: SOFT TISSUE SWELLING. NO HARDWARE COMPLICATION. Impression dictated by: Daryn Hewitt Jr. [email or web address]/26/2024 6:27 PM Dictation Location: [facility]18 Transcribed By: LEIF 08/26/241826 Dictated By: Daryn Hewitt Jr, DO 08/26/241826 Signed By: 08/26/241826 [facility] XR knee LT 3V - NOT FOR ER U Ellen 08-26-2024 XR knee LT 3V - NOT FOR ER USE [facility] [address] [place] [address] XRay Report Signed Patient: Otf Terry MR#: [id number] : 1955 Acct:[id number] Age/Sex: 69 / M ADM Date: 08/26/24 Loc: [facility] Room: Type: [facility] Attending Dr: Reji Wesley II, MD Copies to: Reji Wesley MD Ordering Provider: Reji Wesley MD Date of Service: 08/26/24 XR/XR knee LT 3V - NOT FOR ER USE: Z47.1 - Aftercare following joint replacement surgery LEFT KNEE - 3 views CLINICAL HISTORY: Follow-up left TKA COMPARISON: Left knee 07/06/2024 FINDINGS: Soft tissue swelling is present. No hardware complication or acute bony process. XR/XR knee LT 3V - NOT FOR ER USE IMPRESSION: SOFT TISSUE SWELLING. NO HARDWARE COMPLICATION. Impression dictated by: Daryn Hewitt Jr., D.O.08/26/2024 6:27 PM Dictation Location: [facility]18 Transcribed By: LEIF 08/26/241826 Dictated By: Daryn Hewitt Jr, DO 08/26/241826 Signed By: 08/26/241826 Normal [facility] Basic Metabolic Panelon 11- Anion gap [Moles/Vol] 9.6 mmol/L Normal 6.0-15.0 [facility] Comment on above: Performed By: #### C UU, PSATF, ADDONUAPLUS, CBC, LIPID, CMP, TSH3 #### [facility] [address] Calcium [Mass/Vol] 8.4 mg/dL Low 8.6-10.3 [facility] Comment on above: Performed By: #### C UU, PSATF, ADDONUAPLUS, CBC, LIPID, CMP, TSH3 #### [address] Chloride [Moles/Vol] 101 mmol/L Normal 98-107 [facility] Comment on above: Performed By: #### C UU, PSATF, ADDONUAPLUS, CBC, LIPID, CMP, TSH3 #### [address] CO2 [Moles/Vol] 26.8 mmol/L Normal 21.0-31.0 [facility] Comment on above: Performed By: #### C UU, PSATF, ADDONUAPLUS, CBC, LIPID, CMP, TSH3 #### [address] Creatinine [Mass/Vol] 1.20 mg/dL Normal 0.70-1.30 [facility] Comment on above: Performed By: #### C UU, PSATF, ADDONUAPLUS, CBC, LIPID, CMP, TSH3 #### [address] Creatinine Clr Calc Pharmacy 73.89 Normal [facility] Comment on above: Result Comment: PERF ORMED BY: [place] [address] PATHOLOGIST INSPECTOR BOILER LAURA MURDOCK M.D. Performed By: #### C UU, PSATF, ADDONUAPLUS, CBC, LIPID, CMP, TSH3 #### [address] GFR/1.73 sq M.predicted MDRD (S/P/Bld) [Vol rate/Area] mL/min/{1.73_m2} Normal [facility] Comment on above: Performed By: #### C UU, PSATF, ADDONUAPLUS, CBC, LIPID, CMP, TSH3 #### [address] Glucose [Mass/Vol] 128 mg/dL High 70-100 [facility] Comment on above: Result Comment: [facility] Glucose Reference Range is dependent on time and content of last meal. Glucose of more than 200 mg/dL in a nonstressed, ambulatory subject supports the diagnosis of Diabetes Mellitus. ADA recommended reference range Performed By: #### C UU, PSATF, ADDONUAPLUS, CBC, LIPID, CMP, TSH3 #### [facility] [address] Potassium [Moles/Vol] 4.4 mmol/L Normal 3.5-5.1 [facility] Comment on above: Performed By: #### C UU, PSATF, ADDONUAPLUS, CBC, LIPID, CMP, TSH3 #### [facility] [address] Sodium [Moles/Vol] 133 mmol/L Low 136-145 [facility] Comment on above: Performed By: #### C UU, PSATF, ADDONUAPLUS, CBC, LIPID, CMP, TSH3 #### [address] Urea nitrogen [Mass/Vol] 12 mg/dL Normal 7-25 [facility] Comment on above: Performed By: #### C UU, PSATF, ADDONUAPLUS, CBC, LIPID, CMP, TSH3 #### [address] Basophils Auto (Bld) [#/Vol] Ordered By: Reji Wesley on 07-07-2024 Basophils (Bld) [#/Vol] Automated basophil count 0.0-0.2 [facility] Basophils/100 WBC Auto (Bld) Ordered By: Reji Wesley on 07-07-2024 Basophils/100 WBC (Bld) Automated basophil % . [facility] Calcium [Mass/volume] in Ser um or PlasmaOrdered By: Reji Wesley on 07-07-2024 Calcium [Mass/Vol] Calcium [Mass/volume ] in Serum or Plasma Low 8.6-10.3 [facility] Carbon dioxide, total [Moles /volume] in Serum or PlasmaOrdered By: Reji Wesley on 07-07-2024 CO2 [Moles/Vol] Carbon dioxide, tota l [Moles/volume] in Serum or Plasma 21.0-31.0 [facility] Chloride [Moles/volume] in S jackson or PlasmaOrdered By: Reji Wesley on 07-07-2024 Chloride [Moles/Vol] Chloride [Moles/vol ume] in Serum or Plasma 98-107 [facility] Complete Blood Count Auto Di ffon 07-07-2024 Basophils (Bld) [#/Vol] 0.0 10*3/uL Normal 0.0-0.2 [facility] Comment on above: Result Comment: PERF ORMED BY: [place] [address] PATHOLOGIST INSPECTOR BOILER LAURA MURDOCK M.D. Performed By: #### C UU, PSATF, ADDONUAPLUS, CBC, LIPID, CMP, TSH3 #### [address] Basophils/100 WBC (Bld) 0.2 % Normal . T ezequiel [facility] Comment on above: Performed By: #### C UU, PSATF, ADDONUAPLUS, CBC, LIPID, CMP, TSH3 #### [address] Eosinophils (Bld) [#/Vol] 0.0 10*3/uL Normal 0.0-0.45 [facility] Comment on above: Performed By: #### C UU, PSATF, ADDONUAPLUS, CBC, LIPID, CMP, TSH3 #### [address] Eosinophils/100 WBC (Bld) 0.7 % Normal . [facility] Comment on above: Performed By: #### C UU, PSATF, ADDONUAPLUS, CBC, LIPID, CMP, TSH3 #### [address] Erythrocyte distribution width (RBC) [Ratio] 14.3 % Normal 12.0-14.8 [facility] Comment on above: Performed By: #### C UU, PSATF, ADDONUAPLUS, CBC, LIPID, CMP, TSH3 #### [address] Hematocrit (Bld) [Volume fraction] 37.8 % Low 38.8-50.0 [facility] Comment on above: Performed By: #### C UU, PSATF, ADDONUAPLUS, CBC, LIPID, CMP, TSH3 #### [address] Hemoglobin (Bld) [Mass/Vol] 12.9 g/dL Low 13.0-17.0 [facility] Comment on above: Performed By: #### C UU, PSATF, ADDONUAPLUS, CBC, LIPID, CMP, TSH3 #### [address] Lymphocytes (Bld) [#/Vol] 0.8 10*3/uL Low 1.00-4.8 [facility] Comment on above: Performed By: #### C UU, PSATF, ADDONUAPLUS, CBC, LIPID, CMP, TSH3 #### [address] Lymphocytes/100 WBC (Bld) 12.4 % Normal . [facility] Comment on above: Performed By: #### C UU, PSATF, ADDONUAPLUS, CBC, LIPID, CMP, TSH3 #### [address] MCH (RBC) [Entitic mass] 29.4 pg Normal 27.5-35.2 [facility] Comment on above: Performed By: #### C UU, PSATF, ADDONUAPLUS, CBC, LIPID, CMP, TSH3 #### [address] MCV (RBC) [Entitic vol] 86.2 fL Normal 83.5-101 [facility] Comment on above: Performed By: #### C UU, PSATF, ADDONUAPLUS, CBC, LIPID, CMP, TSH3 #### [address] Mean Corpuscular HGB Conc 34.1 g/dL Normal 32.5-35.6 [facility] Comment on above: Performed By: #### C UU, PSATF, ADDONUAPLUS, CBC, LIPID, CMP, TSH3 #### [address] Monocytes (Bld) [#/Vol] 0.9 10*3/uL High 0.0-0.8 [facility] Comment on above: Performed By: #### C UU, PSATF, ADDONUAPLUS, CBC, LIPID, CMP, TSH3 #### [address] Monocytes/100 WBC (Bld) 13.1 % Normal . T ezequiel [facility] Comment on above: Performed By: #### C UU, PSATF, ADDONUAPLUS, CBC, LIPID, CMP, TSH3 #### [address] Neutrophils (Bld) [#/Vol] 4.9 10*3/uL Normal 1.8-7.7 [facility] Comment on above: Performed By: #### C UU, PSATF, ADDONUAPLUS, CBC, LIPID, CMP, TSH3 #### [address] Neutrophils/100 WBC (Bld) 73.6 % Normal . [facility] Comment on above: Performed By: #### C UU, PSATF, ADDONUAPLUS, CBC, LIPID, CMP, TSH3 #### [address] NRBC% 0.0 /100{WBC} Normal 0-0.5 [facility] Comment on above: Performed By: #### C UU, PSATF, ADDONUAPLUS, CBC, LIPID, CMP, TSH3 #### [address] Platelet mean volume (Bld) [Entitic vol] 8.8 fL Normal 6.6-10.1 [facility] Comment on above: Performed By: #### C UU, PSATF, ADDONUAPLUS, CBC, LIPID, CMP, TSH3 #### [facility] [address] Platelets (Bld) [#/Vol] 150 10*3/uL Normal 150-450 [facility] Comment on above: Performed By: #### C UU, PSATF, ADDONUAPLUS, CBC, LIPID, CMP, TSH3 #### [facility] [address] RBC (Bld) [#/Vol] 4.38 10*6/uL Normal 3.90-5.60 [facility] Comment on above: Performed By: #### C UU, PSATF, ADDONUAPLUS, CBC, LIPID, CMP, TSH3 #### [facility] [address] WBC (Bld) [#/Vol] 6.6 10*3/uL Normal 4.1-10.5 [facility] Comment on above: Performed By: #### C UU, PSATF, ADDONUAPLUS, CBC, LIPID, CMP, TSH3 #### [facility] [address] Creatinine [Mass/volume] in Serum or PlasmaOrdered By: Reji Wesley on 07-07-2024 Creatinine [Mass/Vol] Creatinine [Mass/v olume] in Serum or Plasma 0.70-1.30 [facility] Eosinophils Auto (Bld) [#/Vo l]Ordered By: Reji Wesley on 07-07-2024 Eosinophils (Bld) [#/Vol] Automated eosinophil count 0.0-0.45 [facility] Eosinophils/100 WBC Auto (Bl d)Ordered By: Reji Wesley on 07-07-2024 Eosinophils/100 WBC (Bld) Automated eosinophil % . [facility] Erythrocyte distribution wid th Auto (RBC) [Ratio]Ordered By: Reji Wesley on 07-07-2024 Erythrocyte distribution width (RBC) [Ratio] Erythrocyte distribution width [Ratio] by Automated count 12.0-14.8 [facility] Glucose [Mass/volume] in Ser um or PlasmaOrdered By: Reji Wesley on 07-07-2024 Glucose [Mass/Vol] Glucose [Mass/volume ] in Serum or Plasma High 70-100 [facility] Comment on above: ADA recommended refe rence rangeRandom Glucose Reference Range is dependent on time and content of last meal. Glucose of more than 200 mg/dL in a nonstressed, ambulatory subject supports the diagnosis of Diabetes Mellitus. Hematocrit Auto (Bld) [Volum e fraction]Ordered By: Reji Wesley on 07-07-2024 Hematocrit (Bld) [Volume fraction] Hematocrit [Volume Fraction] of Blood by Automated count Low 38.8-50.0 [facility] Hemoglobin [Mass/volume] in BloodOrdered By: Reji Wesley on 07-07-2024 Hemoglobin (Bld) [Mass/Vol] Hemoglobin [Mass/volume] in Blood Low 13.0-17.0 [facility] Leukocytes [#/volume] correc nilam for nucleated erythrocytes in Blood by Automated counOrdered By: Reji Wesley on 07-07-2024 WBC corrected for nucl RBC Auto (Bld) [#/Vol] Leukocytes [#/volume] corrected for nucleated erythrocytes in Blood by Automated coun 4.1-10.5 [facility] Lymphocytes Auto (Bld) [#/Vo l]Ordered By: Reji Wesley on 07-07-2024 Lymphocytes (Bld) [#/Vol] Lymphocytes [#/volume] in Blood by Automated count Low 1.00-4.8 [facility] Lymphocytes/100 WBC Auto (Bl d)Ordered By: Reji Wesley on 07-07-2024 Lymphocytes/100 WBC (Bld) Lymphocytes/100 leukocytes in Blood by Automated count . [facility] MCH Auto (RBC) [Entitic mass ]Ordered By: Reji Wesley on 07-07-2024 MCH (RBC) [Entitic mass] MCH [Entitic mass] by Automated count 27.5-35.2 [facility] MCHC Auto (RBC) [Mass/Vol]Or dered By: Reji Wesley on 07-07-2024 MCHC (RBC) [Mass/Vol] MCHC [Mass/volume] by Automated count 32.5-35.6 [facility] MCV Auto (RBC) [Entitic vol] Ordered By: Reji Wesley on 07-07-2024 MCV (RBC) [Entitic vol] MCV [Entitic vol ume] by Automated count 83.5-101 [facility] Monocytes Auto (Bld) [#/Vol] Ordered By: Reji Wesley on 07-07-2024 Monocytes (Bld) [#/Vol] Automated blood monocyte count High 0.0-0.8 [facility] Monocytes/100 WBC Auto (Bld) Ordered By: Reji Wesley on 07-07-2024 Monocytes/100 WBC (Bld) Automated monocyte % . [facility] Neutrophils Auto (Bld) [#/Vo l]Ordered By: Reji Wesley on 07-07-2024 Neutrophils (Bld) [#/Vol] Neutrophils [#/volume] in Blood by Automated count 1.8-7.7 [facility] Neutrophils/100 WBC Auto (Bl d)Ordered By: Reji Wesley on 07-07-2024 Neutrophils/100 WBC (Bld) Automated neutrophil % . [facility] No Panel InformationOrdered By: Reji Wesley on 07-07-2024 Estimated GFR (CKD-EPI) > 60.0 mL/Min [facility] Creatinine Clearance (Chem 73.89 [facility] Nucleated erythrocytes [Pres ence] in Blood by Automated countOrdered By: Reji Wesley on 07-07-2024 Nucleated RBC Auto Ql (Bld) Nucleated erythrocytes [Presence] in Blood by Automated count 0-0.5 [facility] Platelet mean volume Auto (B ld) [Entitic vol]Ordered By: Reji Wesley on 07-07-2024 Platelet mean volume (Bld) [Entitic vol] Platelet mean volume [Entitic volume] in Blood by Automated count 6.6-10.1 [facility] Platelets Auto (Bld) [#/Vol] Ordered By: Reji Wesley on 07-07-2024 Platelets (Bld) [#/Vol] Platelets [#/vol ume] in Blood by Automated count 150-450 [facility] Potassium [Moles/volume] in Serum or PlasmaOrdered By: Reji Wesley on 07-07-2024 Potassium [Moles/Vol] Potassium [Moles/v olume] in Serum or Plasma 3.5-5.1 [facility] RBC Auto (Bld) [#/Vol]Ordere d By: Reji Wesley on 07-07-2024 RBC (Bld) [#/Vol] Erythrocytes [#/volu me] in Blood by Automated count 3.90-5.60 [facility] Serum or plasma anion gap de terminationOrdered By: Reji Wesley on 07-07-2024 Anion gap [Moles/Vol] Serum or plasma an ion gap determination 6.0-15.0 [facility] Sodium [Moles/volume] in Ser um or PlasmaOrdered By: Reji Wesley on 07-07-2024 Sodium [Moles/Vol] Sodium [Moles/volume ] in Serum or Plasma Low 136-145 [facility] Urea nitrogen [Mass/volume] in Serum or PlasmaOrdered By: Reji Wesley on 07-07-2024 Urea nitrogen [Mass/Vol] Urea nitrogen [Mass/volume] in Serum or Plasma 7-25 [facility] WBC Auto (Bld) [#/Vol]Ordere d By: Reji Wesley on 07-07-2024 WBC (Bld) [#/Vol] Leukocytes [#/volume ] in Blood by Automated count 4.1-10.5 [facility] ABO/Rh Retypeon 07-06-2024 ABO/RH Recheck Result Positive Normal [facility] Comment on above: Result Comment: PERF ORMED BY: [facility] [address] [place] [address] PATHOLOGIST INSPECTOR BOILER LAURA Bailey 07-06-2024 L ------- Specimen: [id number] Received: 07/06/24 Status: AMRY Lima Num: [id number] Spec Type: Surgical Subm Dr: Reji Wesley MD Tissues: A Gross Only (LEFT KNEE) Procedures: Level 1 Gross Age/ Patient Sex Location Account Attending Physician Otf Terry/Ayush ME [id number] Reji Wesley MD SPEC NUM: [id number] RECD: 07/06/24 STATUS: MARY CLARENCE NUM: [id number] ALLISON: 07/06/24- [facility] DR: Reji Wesley MD ENTERED: 07/06/24 [facility] DR: SPEC TYPE: Surgical DEPT: S ENTERED BY: [id number] RECV BY: [id number] ORDERED: Level 1 Gross ORDERED: Level 1 Gross Pathological Diagnosis Bone and tissue, Left knee, arthroplasty: Degenerative changes consistent with osteoarthritis. Gross examination only. Clinical Information L knee osteoarthritis Gross Description Part A is received in formalin labeled with the patients name, date of , and bone and tissue L knee are ayers-manzo, granular bone fragments, 8 x 5.5 x 3.5 cm in aggregate with detached portions of ayers-pink to yellow-manzo fibrofatty tissue, 7 x 5 x 1.5 cm in aggregate. The bone is consistent with portions of femoral condyle and tibial plateau. The articular surfaces are remarkable for granular degeneration and eburnation; the medullary bone is manzo, firm and uniform. The soft tissue is sectioned to reveal ayers-pink to yellow-manzo, glistening and uniform cut surfaces. GROSS ONLY J CPT Codes 15031 Specimen: [id number] Received: 07/06/24 Status: INÉSHaider Lima Num: [id number] Spec Type: Surgical Subm Dr: Reji Wesley MD Tissues: A Gross Only (LEFT KNEE) Procedures: Level 1 Gross Patient: MaraOtf [id number] (Continued) Signed (signature on file) Laura Murdock MD 07/07/24 1412 Normal [facility] X-ray reportOrdered By: Kingsley Eubanks on 07-06-2024 Study report [address] [address] XRay Report Signed Patient: Otf Terry MR#: [id number] : 1955 Acct:[id number] Age/Sex: 69 / M ADM Date: 4 Loc: Room: [address] [place] [address] Type: [facility] Attending Dr: Reji Wesley II, MD Copies to: Reji Wesley MD~ Ordering Provider: Reji Wesley MD Date of Service: 07/06/24 XR/XR knee LT 2V: POST OP LEFT KNEE 2 views left knee plain film COMPARISON: 07/31/2023 HISTORY: Postop left total knee ACUTE FINDINGS: No acute findings DEGENERATIVE CHANGE: Unremarkable SOFT TISSUE FINDINGS: Anterior soft tissue postsurgical change JOINT EFFUSION: None POSTOP CHANGES: Unremarkable hardware BONE MINERALIZATION: Adequate XR/XR knee LT 2V IMPRESSION: Uncomplicated left knee arthroplasty Impression dictated by: Kit Eubanks M.D.07/06/2024 3:45 PM Dictation Location: [place] [address] Transcribed By: [facility] 07/06/24 1545 Dictated By: Kit Eubanks DO 07/06/24 1542 Signed By: 07/06/24 1545 [facility] XR knee LT 2Von 07-06-2024 XR knee LT 2V [address] [address] XRay Report Signed Patient: Otf Terry MR#: [id number] : 1955 Acct:[id number] Age/Sex: 69 / M ADM Date: 07/06/24 Loc: 4 Room: 8Z4385-0 Type: [facility] Attending Dr: Reji Wesley II, MD Copies to: Reji Wesley MD Ordering Provider: Reji Wesley MD Date of Service: 07/06/24 XR/XR knee LT 2V: POST OP LEFT KNEE 2 views left knee plain film COMPARISON: 07/31/2023 HISTORY: Postop left total knee ACUTE FINDINGS: No acute findings DEGENERATIVE CHANGE: Unremarkable SOFT TISSUE FINDINGS: Anterior soft tissue postsurgical change JOINT EFFUSION: None POSTOP CHANGES: Unremarkable hardware BONE MINERALIZATION: Adequate XR/XR knee LT 2V IMPRESSION: Uncomplicated left knee arthroplasty Impression dictated by: Kit Eubanks M.D.07/06/2024 3:45 PM Dictation Location: [place] [address] Transcribed By: [facility] 07/06/24 1545 Dictated By: Kit Eubanks DO 07/06/24 1542 Signed By: 07/06/24 1545 Normal [facility] XR tibia fibula LT 2V*on XR tibia fibula LT 2V* [facility] [place] [facility] [address] [place] [address] XRay Report Signed Patient: Otf Terry MR#: [id number] : 1955 Acct:[id number] Age/Sex: 69 / M ADM Date: 06/22/24 Loc: SOX Room: Type: [facility] Attending Dr: Reji Wesley II, MD Copies to: Reji Wesley MD Ordering Provider: Rjei Wesley MD Date of Service: 06/22/24 XR/XR tibia fibula LT 2V*: M17.12 - Unilateral primary osteoarthritis, left knee ([id number]) XR/XR femur LT 2V*: M17.12 - Unilateral primary osteoarthritis, left knee 2 views left femur with 2 views of the left tibia and fibula HISTORY: Preop assessment for left total knee arthroplasty Adequate left hip joint. Intact left femur. Sensitive left knee degeneration greatest in medial compartment. Intact tibia and fibula. Unremarkable left ankle. Unremarkable soft tissues. XR/XR femur LT 2V* IMPRESSION: Extensive medial left knee degeneration Impression dictated by: Kit Eubanks M.D.06/22/2024 3:33 PM Dictation Location: [place] [address] Transcribed By: [facility] 06/22/24 1533 Dictated By: Kit Eubanks DO 06/22/24 1531 Signed By: 06/22/24 1533 Normal [facility] Appearance of UrineOrdered B y: Reji Wesley on 06-19-2024 Appearance (U) Urine appearance Clear [facility] Automated basophil %Ordered By: Reji Wesley on 06-19-2024 Basophils/100 WBC (Bld) 0.7 % Normal . [facility] Comment on above: Performed By: #### C UU, PSATF, ADDONUAPLUS, CBC, LIPID, CMP, TSH3 #### [address] Automated basophil countOrde red By: Reji Wesley on 06-19-2024 Basophils (Bld) [#/Vol] 0.0 10*3/uL Normal 0.0-0.2 [facility] Comment on above: Result Comment: PERF ORMED BY: [place] [address] PATHOLOGIST INSPECTOR BOILER JUANCARLOS BAINS M.D. Performed By: #### C UU, PSATF, ADDONUAPLUS, CBC, LIPID, CMP, TSH3 #### [facility] [address] [place] [address] Automated blood monocyte cou ntOrdered By: Reji Wesley on 06-19-2024 Monocytes (Bld) [#/Vol] 0.5 10*3/uL Normal 0.0-0.8 [facility] Comment on above: Performed By: #### C UU, PSATF, ADDONUAPLUS, CBC, LIPID, CMP, TSH3 #### [address] Automated eosinophil %Ordere d By: Reji Wesley on 06-19-2024 Eosinophils/100 WBC (Bld) 6.4 % Normal . [facility] Comment on above: Performed By: #### C UU, PSATF, ADDONUAPLUS, CBC, LIPID, CMP, TSH3 #### [facility] [address] Automated eosinophil countOr dered By: Reji Wesley on 06-19-2024 Eosinophils (Bld) [#/Vol] 0.3 10*3/uL Normal 0.0-0.45 [facility] Comment on above: Performed By: #### C UU, PSATF, ADDONUAPLUS, CBC, LIPID, CMP, TSH3 #### [address] Automated monocyte %Ordered By: Reji Wesley on 06-19-2024 Monocytes/100 WBC (Bld) 11.3 % Normal . [facility] Comment on above: Performed By: #### C UU, PSATF, ADDONUAPLUS, CBC, LIPID, CMP, TSH3 #### [address] Automated neutrophil %Ordere d By: Reji Wesley on 06-19-2024 Neutrophils/100 WBC (Bld) 57.1 % Normal . [facility] Comment on above: Performed By: #### C UU, PSATF, ADDONUAPLUS, CBC, LIPID, CMP, TSH3 #### [address] Basic Metabolic Panelon GFR/1.73 sq M.predicted MDRD (S/P/Bld) [Vol rate/Area] mL/min/{1.73_m2} Normal [facility] Comment on above: Performed By: #### C UU, PSATF, ADDONUAPLUS, CBC, LIPID, CMP, TSH3 #### [address] Basophils Auto (Bld) [#/Vol] Ordered By: Reji Wesley on 06-19-2024 Basophils (Bld) [#/Vol] Automated basophil count 0.0-0.2 [facility] Basophils/100 WBC Auto (Bld) Ordered By: Reji Wesley on 06-19-2024 Basophils/100 WBC (Bld) Automated basophil % . [facility] Bilirubin Test strip Ql (U)O rdered By: Reji Wesley on 06-19-2024 Bilirubin Ql (U) Negative Negative [facility] Bilirubin Ql (U) Bilirubin.total [Pre sence] in Urine by Test strip Negative [facility] Calcium [Mass/volume] in Ser um or PlasmaOrdered By: Reji Wesley on 06-19-2024 Calcium [Mass/Vol] 8.9 mg/dL Normal 8.6-10.3 [facility] Comment on above: Result Comment: PERF ORMED BY: [place] [address] PATHOLOGIST INSPECTOR BOILER JUANCARLOS BAINS M.D. Performed By: #### C UU, PSATF, ADDONUAPLUS, CBC, LIPID, CMP, TSH3 #### [address] Calcium [Mass/Vol] Calcium [Mass/volume ] in Serum or Plasma 8.6-10.3 [facility] Carbon dioxide, total [Moles /volume] in Serum or PlasmaOrdered By: Reji Wesley on 06-19-2024 CO2 [Moles/Vol] 30.5 mmol/L Normal 21.0-31.0 [facility] Comment on above: Performed By: #### C UU, PSATF, ADDONUAPLUS, CBC, LIPID, CMP, TSH3 #### [address] CO2 [Moles/Vol] Carbon dioxide, tota l [Moles/volume] in Serum or Plasma 21.0-31.0 [facility] Chloride [Moles/volume] in S jackson or PlasmaOrdered By: Reji Wesley on 06-19-2024 Chloride [Moles/Vol] 106 mmol/L Normal 98-107 [facility] Comment on above: Performed By: #### C UU, PSATF, ADDONUAPLUS, CBC, LIPID, CMP, TSH3 #### [facility] [address] Chloride [Moles/Vol] Chloride [Moles/vol ume] in Serum or Plasma 98-107 [facility] Color Auto (U)Ordered By: Adilene Wesley on 06-19-2024 Color (U) Color of Urine by Auto Yellow Fi [facility] Color of Urine by AutoOrdere d By: Reji Wesley on 06-19-2024 Color (U) Light-yellow Normal Yellow [facility] Comment on above: Order Comment: Name Collection Type:: Clean-Voided Midstream Performed By: #### C UU, PSATF, ADDONUAPLUS, CBC, LIPID, CMP, TSH3 #### [address] Complete Blood Count Auto Di ffon 06-19-2024 Mean Corpuscular HGB Conc 33.8 g/dL Normal 32.5-35.6 [facility] Comment on above: Performed By: #### C UU, PSATF, ADDONUAPLUS, CBC, LIPID, CMP, TSH3 #### [address] NRBC% 0.1 /100{WBC} Normal 0-0.5 [facility] Comment on above: Performed By: #### C UU, PSATF, ADDONUAPLUS, CBC, LIPID, CMP, TSH3 #### [place] [address] [place] Creatinine [Mass/volume] in Serum or PlasmaOrdered By: Reji Wesley on 06-19-2024 Creatinine [Mass/Vol] 1.19 mg/dL Normal 0.70-1.30 [facility] Comment on above: Performed By: #### C UU, PSATF, ADDONUAPLUS, CBC, LIPID, CMP, TSH3 #### [address] Creatinine [Mass/Vol] Creatinine [Mass/v olume] in Serum or Plasma 0.70-1.30 [facility] ECG 12 lead ECGon 06-19-2024 ECG 12 lead ECG [facility] [address] [place] [address] [place] [address] Electrocardiograph Report Signed Patient: Otf Terry MR#: [id number] : 1955 Acct:[id number] Age/Sex: 69 / M ADM Date: 06/19/24 Loc: Room: Type: [facility] Attending Dr: Reji Wesley II, MD Ordering Provider: Reji Wesley MD Date of Service: 06/19/2409/11/750 ECG/ECG 12 lead ECG: preop Copies to: Test Reason : Blood Pressure : */* mmHG Vent. Rate : 91 BPM Atrial Rate : 91 BPM P-R Int : 130 ms QRS Dur : 94 ms QT Int : 362 ms P-R-T Axes : 65 52 73 degrees QTcB Int : 445 ms Normal sinus rhythm Normal ECG No previous ECGs available Confirmed by Stephen Vidal ([id number]) on 06/19/2024 5:22:22 PM Referred By: Electronically Signed By: Stephen Vidal Transcribed By: MUS Signed By Stephen Vidal MD 06/19/24 1722 Normal [facility] Eosinophils Auto (Bld) [#/Vo l]Ordered By: Reji Wesley on 06-19-2024 Eosinophils (Bld) [#/Vol] Automated eosinophil count 0.0-0.45 [facility] Eosinophils/100 WBC Auto (Bl d)Ordered By: Reji Wesley on 06-19-2024 Eosinophils/100 WBC (Bld) Automated eosinophil % . [facility] Erythrocyte distribution wid th Auto (RBC) [Ratio]Ordered By: Reji Wesley on 06-19-2024 Erythrocyte distribution width (RBC) [Ratio] Erythrocyte distribution width [Ratio] by Automated count 12.0-14.8 [facility] Erythrocyte distribution wid th [Ratio] by Automated countOrdered By: Reji Wesley on 06-19-2024 Erythrocyte distribution width (RBC) [Ratio] 13.9 % Normal 12.0-14.8 [facility] Comment on above: Performed By: #### C UU, PSATF, ADDONUAPLUS, CBC, LIPID, CMP, TSH3 #### [facility] [address] Erythrocytes [#/volume] in B lood by Automated countOrdered By: Reji Wesley on 06-19-2024 RBC (Bld) [#/Vol] 4.77 10*6/uL Normal 3.90-5.60 [facility] Comment on above: Performed By: #### C UU, PSATF, ADDONUAPLUS, CBC, LIPID, CMP, TSH3 #### [place] [id number] [facility] Fructosamineon 06-19-2024 Fructosamine 197 umol/L Normal 0-285 [facility] Comment on above: Result Comment: Publ ished reference interval for apparently healthy subjects between age 20 and 60 is 205 - 285 umol/L and in a poorly controlled diabetic population is 228 - 563 umol/L with a mean of 396 umol/L. Performed at: [facility] [address] [id number] [employer] Tender: Tyson Salvador PhD, Phone: [phone] PERFORMED BY: [place] [address] PATHOLOGIST INSPECTOR BOILER JUANCARLOS BAINS M.D. Performed By: #### C UU, PSATF, ADDONUAPLUS, CBC, LIPID, CMP, TSH3 #### [address] Fructosamine [Moles/volume] in Serum or PlasmaOrdered By: Reji Wesley on 06-19-2024 Fructosamine [Moles/Vol] 197 umol/L 0-285 [facility] Comment on above: Published reference interval for apparently healthysubjects between age 20 and 60 is 205 - 285 umol/L and in apoorly controlled diabetic population is 228 - 563 umol/Lwith a mean of 396 umol/L.Performed at: [facility] [address] [id number] Director: Tyson Salvador PhD, Phone: [phone] Fructosamine [Moles/Vol] Fructosamine [Moles/volume] in Serum or Plasma 0-285 [facility] Comment on above: Published reference interval for apparently healthysubjects between age 20 and 60 is 205 - 285 umol/L and in apoorly controlled diabetic population is 228 - 563 umol/Lwith a mean of 396 umol/L.Performed at: - [facility] [address] [id number] Director: Tyson Salvador PhD, Phone: [phone] Glucose [Mass/volume] in Ser um or PlasmaOrdered By: Reji Wesley on 06-19-2024 Glucose [Mass/Vol] 90 mg/dL Normal 70-100 [facility] Comment on above: ADA recommended refe rence rangeRandom Glucose Reference Range is dependent on time and content of last meal. Glucose of more than 200 mg/dL in a nonstressed, ambulatory subject supports the diagnosis of Diabetes Mellitus. Result Comment: [place] om Glucose Reference Range is dependent on time and content of last meal. Glucose of more than 200 mg/dL in a nonstressed, ambulatory subject supports the diagnosis of Diabetes Mellitus. ADA recommended reference range Performed By: #### C UU, PSATF, ADDONUAPLUS, CBC, LIPID, CMP, TSH3 #### [address] Glucose [Mass/Vol] Glucose [Mass/volume ] in Serum or Plasma 70-100 [facility] Comment on above: ADA recommended refe rence rangeRandom Glucose Reference Range is dependent on time and content of last meal. Glucose of more than 200 mg/dL in a nonstressed, ambulatory subject supports the diagnosis of Diabetes Mellitus. Glucose [Mass/volume] in Uri ne by Test stripOrdered By: Reji Wesley on 06-19-2024 Glucose Test strip (U) [Mass/Vol] Normal mg/dL Normal [facility] Glucose Test strip (U) [Mass/Vol] Glucose [Mass/volume] in Urine by Test strip Normal [facility] Hematocrit Auto (Bld) [Volum e fraction]Ordered By: Reji Wesley on 06-19-2024 Hematocrit (Bld) [Volume fraction] Hematocrit [Volume Fraction] of Blood by Automated count 38.8-50.0 [facility] Hematocrit [Volume Fraction] of Blood by Automated countOrdered By: Reji Wesley on 06-19-2024 Hematocrit (Bld) [Volume fraction] 41.4 % Normal 38.8-50.0 [facility] Comment on above: Performed By: #### C UU, PSATF, ADDONUAPLUS, CBC, LIPID, CMP, TSH3 #### [facility] [address] Hemoglobin Test strip Ql (U) Ordered By: Reji Wesley on 06-19-2024 Hemoglobin Ql (U) Negative Negative [facility] Hemoglobin Ql (U) Hemoglobin [Presence ] in Urine by Test strip Negative [facility] Hemoglobin [Mass/volume] in BloodOrdered By: Reji Wesley on 06-19-2024 Hemoglobin (Bld) [Mass/Vol] 14.0 g/dL Normal 13.0-17.0 [facility] Comment on above: Performed By: #### C UU, PSATF, ADDONUAPLUS, CBC, LIPID, CMP, TSH3 #### [facility] [address] Hemoglobin (Bld) [Mass/Vol] Hemoglobin [Mass/volume] in Blood 13.0-17.0 [facility] Ketones Test strip Ql (U)Ord ered By: Reji Wesley on 06-19-2024 Ketones Ql (U) Ketones [Presence] i n Urine by Test strip Negative [facility] Ketones [Presence] in Urine by Test stripOrdered By: Reji Wesley on 06-19-2024 Ketones Ql (U) Negative Normal Negative [facility] Comment on above: Order Comment: Name Collection Type:: Clean-Voided Midstream Performed By: #### C UU, PSATF, ADDONUAPLUS, CBC, LIPID, CMP, TSH3 #### [facility] [address] [place] [address] [place] Leukocyte esterase [Presence ] in Urine by Test stripOrdered By: Reji Wesley on 06-19-2024 Leukocyte esterase Test strip Ql (U) Negative Normal Negative [facility] Comment on above: Order Comment: Name Collection Type:: Clean-Voided Midstream Performed By: #### C UU, PSATF, ADDONUAPLUS, CBC, LIPID, CMP, TSH3 #### [facility] [address] Leukocyte esterase Test strip Ql (U) Leukocyte esterase [Presence] in Urine by Test strip Negative [facility] Leukocytes [#/volume] correc nilam for nucleated erythrocytes in Blood by Automated counOrdered By: Reji Wesley on 06-19-2024 WBC corrected for nucl RBC Auto (Bld) [#/Vol] 4.5 10*3/uL 4.1-10.5 [facility] WBC corrected for nucl RBC Auto (Bld) [#/Vol] Leukocytes [#/volume] corrected for nucleated erythrocytes in Blood by Automated coun 4.1-10.5 [facility] Leukocytes [#/volume] in Blo od by Automated countOrdered By: Reji Wesley on 06-19-2024 WBC (Bld) [#/Vol] 4.5 10*3/uL Normal 4.1-10.5 [facility] Comment on above: Performed By: #### C UU, PSATF, ADDONUAPLUS, CBC, LIPID, CMP, TSH3 #### [address] Lymphocytes Auto (Bld) [#/Vo l]Ordered By: Reji Wesley on 06-19-2024 Lymphocytes (Bld) [#/Vol] Lymphocytes [#/volume] in Blood by Automated count 1.00-4.8 [facility] Lymphocytes [#/volume] in Bl ood by Automated countOrdered By: Reji Wesley on 06-19-2024 Lymphocytes (Bld) [#/Vol] 1.1 10*3/uL Normal 1.00-4.8 [facility] Comment on above: Performed By: #### C UU, PSATF, ADDONUAPLUS, CBC, LIPID, CMP, TSH3 #### [address] Lymphocytes/100 WBC Auto (Bl d)Ordered By: Reji Wesley on 06-19-2024 Lymphocytes/100 WBC (Bld) Lymphocytes/100 leukocytes in Blood by Automated count . [facility] Lymphocytes/100 leukocytes i n Blood by Automated countOrdered By: Reji Wesley on 06-19-2024 Lymphocytes/100 WBC (Bld) 24.5 % Normal . [facility] Comment on above: Performed By: #### C UU, PSATF, ADDONUAPLUS, CBC, LIPID, CMP, TSH3 #### [facility] [address] MCH Auto (RBC) [Entitic mass ]Ordered By: Reji Wesley on 06-19-2024 MCH (RBC) [Entitic mass] MCH [Entitic mass] by Automated count 27.5-35.2 [facility] MCH [Entitic mass] by Automa nilam countOrdered By: Reji Wesley on 06-19-2024 MCH (RBC) [Entitic mass] 29.4 pg Normal 27.5-35.2 [facility] Comment on above: Performed By: #### C UU, PSATF, ADDONUAPLUS, CBC, LIPID, CMP, TSH3 #### [facility] [address] MCHC Auto (RBC) [Mass/Vol]Or dered By: Reji Wesley on 06-19-2024 MCHC (RBC) [Mass/Vol] 33.8 g/dL 32.5-35.6 [facility] MCHC (RBC) [Mass/Vol] MCHC [Mass/volume] by Automated count 32.5-35.6 [facility] MCV Auto (RBC) [Entitic vol] Ordered By: Reji Wesley on 06-19-2024 MCV (RBC) [Entitic vol] MCV [Entitic vol ume] by Automated count 83.5-101 [facility] MCV [Entitic volume] by Auto mated countOrdered By: Reji Wesley on 06-19-2024 MCV (RBC) [Entitic vol] 86.9 fL Normal 83.5-101 [facility] Comment on above: Performed By: #### C UU, PSATF, ADDONUAPLUS, CBC, LIPID, CMP, TSH3 #### [facility] [address] [place] [address] [place] Monocytes Auto (Bld) [#/Vol] Ordered By: Reji Wesley on 06-19-2024 Monocytes (Bld) [#/Vol] Automated blood monocyte count 0.0-0.8 [facility] Monocytes/100 WBC Auto (Bld) Ordered By: Reji Wesley on 06-19-2024 Monocytes/100 WBC (Bld) Automated monocyte % . [facility] Neutrophils Auto (Bld) [#/Vo l]Ordered By: Reji Wesley on 06-19-2024 Neutrophils (Bld) [#/Vol] Neutrophils [#/volume] in Blood by Automated count 1.8-7.7 [facility] Neutrophils [#/volume] in Bl ood by Automated countOrdered By: Reji Wesley on 06-19-2024 Neutrophils (Bld) [#/Vol] 2.6 10*3/uL Normal 1.8-7.7 [facility] Comment on above: Performed By: #### C UU, PSATF, ADDONUAPLUS, CBC, LIPID, CMP, TSH3 #### [facility] [address] [place] [address] [place] Neutrophils/100 WBC Auto (Bl d)Ordered By: Reji Wesley on 06-19-2024 Neutrophils/100 WBC (Bld) Automated neutrophil % . [facility] Nitrite Test strip Ql (U)Ord ered By: Reji Wesley on 06-19-2024 Nitrite Ql (U) Negative Negative [facility] Nitrite Ql (U) Nitrite [Presence] i n Urine by Test strip Negative [facility] No Panel InformationOrdered By: Reji Wesley on 06-19-2024 Estimated GFR (CKD-EPI) > 60.0 mL/Min [facility] Creatinine Clearance (Chem N/A [facility] Nucleated erythrocytes [Pres ence] in Blood by Automated countOrdered By: Reji Wesley on 06-19-2024 Nucleated RBC Auto Ql (Bld) 0.1 /100{WBC} 0-0.5 [facility] Nucleated RBC Auto Ql (Bld) Nucleated erythrocytes [Presence] in Blood by Automated count 0-0.5 [facility] PST Type and Screenon 2023 ABO and Rh group Nom (Bld) Blood group B Rh(D) positive Normal [facility] Comment on above: Order Comment: Date of Surgery: [id number] Platelet mean volume Auto (B ld) [Entitic vol]Ordered By: Reji Wesley on 06-19-2024 Platelet mean volume (Bld) [Entitic vol] Platelet mean volume [Entitic volume] in Blood by Automated count 6.6-10.1 [facility] Platelet mean volume [Entiti c volume] in Blood by Automated countOrdered By: Reji Wesley on 06-19-2024 Platelet mean volume (Bld) [Entitic vol] 8.3 fL Normal 6.6-10.1 [facility] Comment on above: Performed By: #### C UU, PSATF, ADDONUAPLUS, CBC, LIPID, CMP, TSH3 #### [facility] [address] [place] [address] [place] Platelets Auto (Bld) [#/Vol] Ordered By: Reji Wesley on 06-19-2024 Platelets (Bld) [#/Vol] Platelets [#/vol ume] in Blood by Automated count 150-450 [facility] Platelets [#/volume] in Bloo d by Automated countOrdered By: Reji Wesley on 06-19-2024 Platelets (Bld) [#/Vol] 167 10*3/uL Normal 150-450 [facility] Comment on above: Performed By: #### C UU, PSATF, ADDONUAPLUS, CBC, LIPID, CMP, TSH3 #### [facility] [address] [place] [address] [place] Potassium [Moles/volume] in Serum or PlasmaOrdered By: Reji Wesley on 06-19-2024 Potassium [Moles/Vol] 4.4 mmol/L Normal 3.5-5.1 [facility] Comment on above: Performed By: #### C UU, PSATF, ADDONUAPLUS, CBC, LIPID, CMP, TSH3 #### [facility] [address] [place], [place] [address] [place] Potassium [Moles/Vol] Potassium [Moles/v olume] in Serum or Plasma 3.5-5.1 [facility] Protein Test strip (U) [Mass /Vol]Ordered By: Reji Wesley on 06-19-2024 Protein (U) [Mass/Vol] Negative Negative [facility] Protein (U) [Mass/Vol] Protein [Mass/vol ume] in Urine by Test strip Negative [facility] RBC Auto (Bld) [#/Vol]Ordere d By: Reji Wesley on 06-19-2024 RBC (Bld) [#/Vol] Erythrocytes [#/volu me] in Blood by Automated count 3.90-5.60 [facility] Serum or plasma anion gap de terminationOrdered By: Reji Wesley on 06-19-2024 Anion gap [Moles/Vol] 9.9 mmol/L Normal 6.0-15.0 [facility] Comment on above: Performed By: #### C UU, PSATF, ADDONUAPLUS, CBC, LIPID, CMP, TSH3 #### [facility] [address] Anion gap [Moles/Vol] Serum or plasma an ion gap determination 6.0-15.0 [facility] Sodium [Moles/volume] in Ser um or PlasmaOrdered By: Reji Wesley on 06-19-2024 Sodium [Moles/Vol] 142 mmol/L Normal 136-145 [facility] Comment on above: Performed By: #### C UU, PSATF, ADDONUAPLUS, CBC, LIPID, CMP, TSH3 #### [facility] [address] Sodium [Moles/Vol] Sodium [Moles/volume ] in Serum or Plasma 136-145 [facility] Specific gravity Test strip (U) [Rel density]Ordered By: Reji Wesley on 06-19-2024 Specific gravity (U) [Rel density] 1.011 1.001-1.03 0 [facility] Specific gravity (U) [Rel density] Specific gravity of Urine by Test strip 1.001-1.03 0 [facility] Urea nitrogen [Mass/volume] in Serum or PlasmaOrdered By: Reji Wesley on 06-19-2024 Urea nitrogen [Mass/Vol] 19 mg/dL Normal 03-12 [facility] Comment on above: Performed By: #### C UU, PSATF, ADDONUAPLUS, CBC, LIPID, CMP, TSH3 #### [address] Urea nitrogen [Mass/Vol] Urea nitrogen [Mass/volume] in Serum or Plasma 03-12 [facility] Urinalysison 06-19-2024 Bilirubin,Urine Negative Normal Negative [facility] Comment on above: Order Comment: Name Collection Type:: Clean-Voided Midstream Performed By: #### C UU, PSATF, ADDONUAPLUS, CBC, LIPID, CMP, TSH3 #### [address] Glucose Ql (U) Normal Normal Normal [facility] Comment on above: Order Comment: Name Collection Type:: Clean-Voided Midstream Performed By: #### C UU, PSATF, ADDONUAPLUS, CBC, LIPID, CMP, TSH3 #### [place] [address] [place] Nitrite,Urine Negative Normal Negative [facility] Comment on above: Order Comment: Name Collection Type:: Clean-Voided Midstream Performed By: #### C UU, PSATF, ADDONUAPLUS, CBC, LIPID, CMP, TSH3 #### [place] [address] [place] Occult Blood,Urine Negative Normal Negative [facility] Comment on above: Order Comment: Name Collection Type:: Clean-Voided Midstream Result Comment: PERF ORMED BY: [place] [address] PATHOLOGIST INSPECTOR BOILER JUANCARLOS BAINS M.D. Performed By: #### C UU, PSATF, ADDONUAPLUS, CBC, LIPID, CMP, TSH3 #### [place] [address] [place] Protein,Urine Negative Normal Negative [facility] Comment on above: Order Comment: Name Collection Type:: Clean-Voided Midstream Performed By: #### C UU, PSATF, ADDONUAPLUS, CBC, LIPID, CMP, TSH3 #### [address] Specificy [place],Urine 1.011 Normal 1.00 1-1.03 0 [facility] Comment on above: Order Comment: Name Collection Type:: Clean-Voided Midstream Performed By: #### C UU, PSATF, ADDONUAPLUS, CBC, LIPID, CMP, TSH3 #### [address] Urobilinogen,Urine Normal Normal Normal [facility] Comment on above: Order Comment: Name Collection Type:: Clean-Voided Midstream Performed By: #### C UU, PSATF, ADDONUAPLUS, CBC, LIPID, CMP, TSH3 #### [address] Urine appearanceOrdered By: Reji Wesley on 06-19-2024 Appearance (U) Clear Normal Clear [facility] Comment on above: Order Comment: Name Collection Type:: Clean-Voided Midstream Performed By: #### C UU, PSATF, ADDONUAPLUS, CBC, LIPID, CMP, TSH3 #### [address] Urobilinogen Test strip (U) [Mass/Vol]Ordered By: Reji Wesley on 06-19-2024 Urobilinogen (U) [Mass/Vol] Normal mg/dL Normal [facility] Urobilinogen (U) [Mass/Vol] Urobilinogen [Mass/volume] in Urine by Test strip Normal [facility] WBC Auto (Bld) [#/Vol]Ordere d By: Reji Wesley on 06-19-2024 WBC (Bld) [#/Vol] Leukocytes [#/volume ] in Blood by Automated count 4.1-10.5 [facility] pH Test strip (U)Ordered By: Reji Wesley on 06-19-2024 pH (U) pH of Urine by Test strip 5.0-9.0 [facility] pH of Urine by Test stripOrd ered By: Reji Wesley on 06-19-2024 pH (U) 7.0 [pH] Normal 5.0-9.0 [facility] Comment on above: Order Comment: Name Collection Type:: Clean-Voided Midstream Performed By: #### C UU, PSATF, ADDONUAPLUS, CBC, LIPID, CMP, TSH3 #### [facility] [address] Alanine aminotransferase [En zymatic activity/volume] in Serum or PlasmaOrdered By: Jose Billy on 05-20-2024 ALT [Catalytic activity/Vol] 16 U/L Normal [facility] Comment on above: Performed By: #### C UU, PSATF, ADDONUAPLUS, CBC, LIPID, CMP, TSH3 #### [facility] [address] ALT [Catalytic activity/Vol] Alanine aminotransferase [Enzymatic activity/volume] in Serum or Plasma [facility] Albumin [Mass/volume] in Ser um or Plasma by Bromocresol green (BCG) dye binding methoOrdered By: Jose Billy on 05-20-2024 Albumin BCG dye [Mass/Vol] 3.9 g/dL 3.5-5.7 [facility] Albumin BCG dye [Mass/Vol] Albumin [Mass/volume] in Serum or Plasma by Bromocresol green (BCG) dye binding metho 3.5-5.7 [facility] Alkaline phosphatase [Enzyma tic activity/volume] in Serum or PlasmaOrdered By: Jose Billy on 05-20-2024 ALP [Catalytic activity/Vol] 82 U/L Normal - [facility] Comment on above: Performed By: #### C UU, PSATF, ADDONUAPLUS, CBC, LIPID, CMP, TSH3 #### [facility] [address] [place] [id number] [facility] ALP [Catalytic activity/Vol] Alkaline phosphatase [Enzymatic activity/volume] in Serum or Plasma [facility] Appearance of UrineOrdered B y: Jose Billy on 05-20-2024 Appearance (U) Urine appearance Clear [facility] Aspartate aminotransferase [ Enzymatic activity/volume] in Serum or PlasmaOrdered By: Jose Billy on 05-20-2024 AST [Catalytic activity/Vol] 21 U/L Normal [facility] Comment on above: Performed By: #### C UU, PSATF, ADDONUAPLUS, CBC, LIPID, CMP, TSH3 #### [address] AST [Catalytic activity/Vol] Aspartate aminotransferase [Enzymatic activity/volume] in Serum or Plasma [facility] Automated basophil %Ordered By: Jose Billy on 05-20-2024 Basophils/100 WBC (Bld) 0.4 % Normal . [facility] Comment on above: Performed By: #### C UU, PSATF, ADDONUAPLUS, CBC, LIPID, CMP, TSH3 #### [address] Automated basophil countOrde red By: Jose Billy on 05-20-2024 Basophils (Bld) [#/Vol] 0.0 10*3/uL Normal 0.0-0.2 [facility] Comment on above: Result Comment: PERF ORMED BY: [place] [address] PATHOLOGIST INSPECTOR BOILER JUANCARLOS BAINS M.D. Performed By: #### C UU, PSATF, ADDONUAPLUS, CBC, LIPID, CMP, TSH3 #### [address] Automated blood monocyte cou ntOrdered By: Jose Billy on 05-20-2024 Monocytes (Bld) [#/Vol] 0.6 10*3/uL Normal 0.0-0.8 [facility] Comment on above: Performed By: #### C UU, PSATF, ADDONUAPLUS, CBC, LIPID, CMP, TSH3 #### [address] Automated eosinophil %Ordere d By: Jose Billy on 05-20-2024 Eosinophils/100 WBC (Bld) 7.8 % Normal . [facility] Comment on above: Performed By: #### C UU, PSATF, ADDONUAPLUS, CBC, LIPID, CMP, TSH3 #### [facility] [address] Automated eosinophil countOr dered By: Jose Billy on 05-20-2024 Eosinophils (Bld) [#/Vol] 0.4 10*3/uL Normal 0.0-0.45 [facility] Comment on above: Performed By: #### C UU, PSATF, ADDONUAPLUS, CBC, LIPID, CMP, TSH3 #### [facility] [address] Automated monocyte %Ordered By: Jose Billy on 05-20-2024 Monocytes/100 WBC (Bld) 11.5 % Normal . [facility] Comment on above: Performed By: #### C UU, PSATF, ADDONUAPLUS, CBC, LIPID, CMP, TSH3 #### [address] Automated neutrophil %Ordere d By: Jose Billy on 05-20-2024 Neutrophils/100 WBC (Bld) 51.9 % Normal . [facility] Comment on above: Performed By: #### C UU, PSATF, ADDONUAPLUS, CBC, LIPID, CMP, TSH3 #### [facility] [address] [place] [address] Bacteria [Presence] in Urine by AutomatedOrdered By: Jose Billy on 05-20-2024 Bacteria Auto Ql (U) None seen [HPF] None Seen [facility] Bacteria Auto Ql (U) Bacteria [Presence] in Urine by Automated None Seen [facility] Basophils Auto (Bld) [#/Vol] Ordered By: Jose Billy on 05-20-2024 Basophils (Bld) [#/Vol] Automated basophil count 0.0-0.2 [facility] Basophils/100 WBC Auto (Bld) Ordered By: Jose Billy on 05-20-2024 Basophils/100 WBC (Bld) Automated basophil % . [facility] Bilirubin Test strip Ql (U)O rdered By: Jose Billy on 05-20-2024 Bilirubin Ql (U) Negative Negative [facility] Bilirubin Ql (U) Bilirubin.total [Pre sence] in Urine by Test strip Negative [facility] Bilirubin.total [Mass/volume ] in Serum or PlasmaOrdered By: Jose Billy on 05-20-2024 Bilirubin [Mass/Vol] 0.5 mg/dL Normal 0.3-1.0 [facility] Comment on above: Performed By: #### C UU, PSATF, ADDONUAPLUS, CBC, LIPID, CMP, TSH3 #### [facility] [address] Bilirubin [Mass/Vol] Bilirubin.total [Mass/volume] in Serum or Plasma 0.3-1.0 [facility] Calcium [Mass/volume] in Ser um or PlasmaOrdered By: Jose Billy on 05-20-2024 Calcium [Mass/Vol] 9.2 mg/dL Normal 8.6-10.3 [facility] Comment on above: Performed By: #### C UU, PSATF, ADDONUAPLUS, CBC, LIPID, CMP, TSH3 #### [facility] [address] Calcium [Mass/Vol] Calcium [Mass/volume ] in Serum or Plasma 8.6-10.3 [facility] Carbon dioxide, total [Moles /volume] in Serum or PlasmaOrdered By: Jose Billy on 05-20-2024 CO2 [Moles/Vol] 28.8 mmol/L Normal 21.0-31.0 [facility] Comment on above: Performed By: #### C UU, PSATF, ADDONUAPLUS, CBC, LIPID, CMP, TSH3 #### [facility] [address] [place] [address] [place] CO2 [Moles/Vol] Carbon dioxide, tota l [Moles/volume] in Serum or Plasma 21.0-31.0 [facility] Chloride [Moles/volume] in S jackson or PlasmaOrdered By: Jose Billy on 05-20-2024 Chloride [Moles/Vol] 107 mmol/L Normal 98-107 [facility] Comment on above: Performed By: #### C UU, PSATF, ADDONUAPLUS, CBC, LIPID, CMP, TSH3 #### [facility] [address] [place] [phone] [place] Chloride [Moles/Vol] Chloride [Moles/vol ume] in Serum or Plasma 98-107 [facility] Cholesterol [Mass/volume] in Serum or PlasmaOrdered By: Jose Billy on 05-20-2024 Cholesterol [Mass/Vol] 178 mg/dL Normal 140-200 [facility] Comment on above: Chol less than 200 m g/dl low riskChol 201-239 mg/dl borderline riskChol 240 mg/dl and greater high risk Result Comment: Chol less than 200 mg/dl low risk Chol 201-239 mg/dl borderline risk Chol 240 mg/dl and greater high risk Performed By: #### C UU, PSATF, ADDONUAPLUS, CBC, LIPID, CMP, TSH3 #### [facility] [address] [place] [id number] [place] Cholesterol [Mass/Vol] Cholesterol [Mass /volume] in Serum or Plasma 140-200 [facility] Comment on above: Chol less than 200 m g/dl low riskChol 201-239 mg/dl borderline riskChol 240 mg/dl and greater high risk Cholesterol in HDL [Mass/vol ume] in Serum or PlasmaOrdered By: Jose Billy on 05-20-2024 Cholesterol in HDL [Mass/Vol] Serum or plasma high density lipoprotein (HDL) cholesterol measurement 23-92 [facility] Comment on above: HDL CHOL ATP-III CLA SSIFICATION Cardiovascular RiskHDL > or equal to 60 mg/dL LOWHDL < 40 mg/dL HIGH Cholesterol in LDL Calc [Mas s/Vol]Ordered By: Jose Billy on 05-20-2024 Cholesterol in LDL [Mass/Vol] 114 mg/dL High 0-100 [facility] Comment on above: LDL ATP III CLASSIFI CATIONLDL less than 100 mg/dL OptimalLDL 100-129 mg/dL Near or above optimalLDL 130-159 mg/dL Borderline highLDL 160-189 mg/dL HighLDL greater than 189 mg/dL Very high Cholesterol in LDL [Mass/Vol] Cholesterol in LDL [Mass/volume] in Serum or Plasma by calculation High 0-100 [facility] Comment on above: LDL ATP III CLASSIFI CATIONLDL less than 100 mg/dL OptimalLDL 100-129 mg/dL Near or above optimalLDL 130-159 mg/dL Borderline highLDL 160-189 mg/dL HighLDL greater than 189 mg/dL Very high Cholesterol in VLDL Calc [Ma ss/Vol]Ordered By: Jose Billy on 05-20-2024 Cholesterol in VLDL [Mass/Vol] 11 mg/dL [facility] Cholesterol in VLDL [Mass/Vol] Cholesterol in VLDL [Mass/volume] in Serum or Plasma by calculation [facility] Color Auto (U)Ordered By: Jay Billy on 05-20-2024 Color (U) Color of Urine by Auto [facility] Color of Urine by AutoOrdere d By: Jose Billy on 05-20-2024 Color (U) Colorless Normal Yellow [facility] Comment on above: Order Comment: Name Collection Type:: Clean-Voided Midstream Performed By: #### C UU, PSATF, ADDONUAPLUS, CBC, LIPID, CMP, TSH3 #### [facility] [address] Complete Blood Count Auto Di ffon 05-20-2024 Mean Corpuscular HGB Conc 34.2 g/dL Normal 32.5-35.6 [facility] Comment on above: Performed By: #### C UU, PSATF, ADDONUAPLUS, CBC, LIPID, CMP, TSH3 #### [facility] [address] NRBC% 0.1 /100{WBC} Normal 0-0.5 [facility] Comment on above: Performed By: #### C UU, PSATF, ADDONUAPLUS, CBC, LIPID, CMP, TSH3 #### [facility] [address] Comprehensive Metabolic Pane leo 05-20-2024 Albumin [Mass/Vol] 3.9 g/dL Normal 3.5-5.7 [facility] Comment on above: Performed By: #### C UU, PSATF, ADDONUAPLUS, CBC, LIPID, CMP, TSH3 #### [facility] [address] [place] [phone] [place] GFR/1.73 sq M.predicted MDRD (S/P/Bld) [Vol rate/Area] mL/min/{1.73_m2} Normal [facility] Comment on above: Performed By: #### C UU, PSATF, ADDONUAPLUS, CBC, LIPID, CMP, TSH3 #### [facility] [address] [place] [id number] [facility] Creatinine [Mass/volume] in Serum or PlasmaOrdered By: Jose Billy on 05-20-2024 Creatinine [Mass/Vol] 1.20 mg/dL Normal 0.70-1.30 [facility] Comment on above: Performed By: #### C UU, PSATF, ADDONUAPLUS, CBC, LIPID, CMP, TSH3 #### [place] [phone] [facility] Creatinine [Mass/Vol] Creatinine [Mass/v olume] in Serum or Plasma 0.70-1.30 [facility] Dipstick and Microscopicon 1 Bacteria,Urine None Seen Normal None Seen [facility] Comment on above: Order Comment: Name Collection Type:: Clean-Voided Midstream Performed By: #### C UU, PSATF, ADDONUAPLUS, CBC, LIPID, CMP, TSH3 #### [place] [phone] [place] Bilirubin,Urine Negative Normal Negative [facility] Comment on above: Order Comment: Name Collection Type:: Clean-Voided Midstream Performed By: #### C UU, PSATF, ADDONUAPLUS, CBC, LIPID, CMP, TSH3 #### [facility] [address] [place] [phone] [place] Glucose Ql (U) Normal Normal Normal [facility] Comment on above: Order Comment: Name Collection Type:: Clean-Voided Midstream Performed By: #### C UU, PSATF, ADDONUAPLUS, CBC, LIPID, CMP, TSH3 #### [facility] [address] [place] [phone] [place] Hyaline Casts,Urine None Normal 0-8 [facility] Comment on above: Order Comment: Name Collection Type:: Clean-Voided Midstream Result Comment: PERF ORMED BY: [place] [address] PATHOLOGIST INSPECTOR BOILER JUANCARLOS BAINS M.D. Performed By: #### C UU, PSATF, ADDONUAPLUS, CBC, LIPID, CMP, TSH3 #### [address] Nitrite,Urine Negative Normal Negative [facility] Comment on above: Order Comment: Name Collection Type:: Clean-Voided Midstream Performed By: #### C UU, PSATF, ADDONUAPLUS, CBC, LIPID, CMP, TSH3 #### [address] Occult Blood,Urine Negative Normal Negative [facility] Comment on above: Order Comment: Name Collection Type:: Clean-Voided Midstream Performed By: #### C UU, PSATF, ADDONUAPLUS, CBC, LIPID, CMP, TSH3 #### [address] Protein,Urine Negative Normal Negative [facility] Comment on above: Order Comment: Name Collection Type:: Clean-Voided Midstream Performed By: #### C UU, PSATF, ADDONUAPLUS, CBC, LIPID, CMP, TSH3 #### [address] RBC,Urine 1-2 Normal 0-4 [facility] Comment on above: Order Comment: Name Collection Type:: Clean-Voided Midstream Performed By: #### C UU, PSATF, ADDONUAPLUS, CBC, LIPID, CMP, TSH3 #### [address] Specificy [place],Urine 1.007 Normal 1.00 1-1.03 0 [facility] Comment on above: Order Comment: Name Collection Type:: Clean-Voided Midstream Performed By: #### C UU, PSATF, ADDONUAPLUS, CBC, LIPID, CMP, TSH3 #### [facility] [address] Urobilinogen,Urine Normal Normal Normal [facility] Comment on above: Order Comment: Name Collection Type:: Clean-Voided Midstream Performed By: #### C UU, PSATF, ADDONUAPLUS, CBC, LIPID, CMP, TSH3 #### [address] WBC,Urine 1-2 Normal 0-4 [facility] Comment on above: Order Comment: Name Collection Type:: Clean-Voided Midstream Performed By: #### C UU, PSATF, ADDONUAPLUS, CBC, LIPID, CMP, TSH3 #### [address] Eosinophils Auto (Bld) [#/Vo l]Ordered By: Jose Billy on 05-20-2024 Eosinophils (Bld) [#/Vol] Automated eosinophil count 0.0-0.45 [facility] Eosinophils/100 WBC Auto (Bl d)Ordered By: Jose Billy on 05-20-2024 Eosinophils/100 WBC (Bld) Automated eosinophil % . [facility] Epithelial cells.squamous [# /area] in Urine sediment by Automated countOrdered By: Jose Billy on 05-20-2024 Epithelial cells.squamous Auto (Urine sed) [#/Area] N/A [facility] Epithelial cells.squamous Auto (Urine sed) [#/Area] Epithelial cells.squamous [#/area] in Urine sediment by Automated count [facility] Erythrocyte distribution wid th Auto (RBC) [Ratio]Ordered By: Jose Billy on 05-20-2024 Erythrocyte distribution width (RBC) [Ratio] Erythrocyte distribution width [Ratio] by Automated count 12.0-14.8 [facility] Erythrocyte distribution wid th [Ratio] by Automated countOrdered By: Jose Billy on 05-20-2024 Erythrocyte distribution width (RBC) [Ratio] 14.1 % Normal 12.0-14.8 [facility] Comment on above: Performed By: #### C UU, PSATF, ADDONUAPLUS, CBC, LIPID, CMP, TSH3 #### [address] [place] [address] [place] Erythrocytes [#/area] in Uri ne sediment by Automated countOrdered By: Jose Billy on 05-20-2024 RBC Auto (Urine sed) [#/Area] 1-2 [HPF] 0-4 [facility] RBC Auto (Urine sed) [#/Area] Erythrocytes [#/area] in Urine sediment by Automated count 0-4 [facility] Erythrocytes [#/volume] in B lood by Automated countOrdered By: Jose Billy on 05-20-2024 RBC (Bld) [#/Vol] 4.64 10*6/uL Normal 3.90-5.60 [facility] Comment on above: Performed By: #### C UU, PSATF, ADDONUAPLUS, CBC, LIPID, CMP, TSH3 #### [address] Globulin Calc (S) [Mass/Vol] Ordered By: Jose Billy on 05-20-2024 Globulin (S) [Mass/Vol] Serum globulin m easurement by calculation (mass/volume) [facility] Glucose [Mass/volume] in Ser um or PlasmaOrdered By: Jose Billy on 05-20-2024 Glucose [Mass/Vol] 89 mg/dL Normal 70-100 [facility] Comment on above: ADA recommended refe rence rangeRandom Glucose Reference Range is dependent on time and content of last meal. Glucose of more than 200 mg/dL in a nonstressed, ambulatory subject supports the diagnosis of Diabetes Mellitus. Result Comment: [place] Glucose Reference Range is dependent on time and content of last meal. Glucose of more than 200 mg/dL in a nonstressed, ambulatory subject supports the diagnosis of Diabetes Mellitus. ADA recommended reference range Performed By: #### C UU, PSATF, ADDONUAPLUS, CBC, LIPID, CMP, TSH3 #### [facility] [address] Glucose [Mass/Vol] Glucose [Mass/volume ] in Serum or Plasma 70-100 [facility] Comment on above: ADA recommended refe rence rangeRandom Glucose Reference Range is dependent on time and content of last meal. Glucose of more than 200 mg/dL in a nonstressed, ambulatory subject supports the diagnosis of Diabetes Mellitus. Glucose [Mass/volume] in Uri ne by Test stripOrdered By: Jose Billy on 05-20-2024 Glucose Test strip (U) [Mass/Vol] Normal mg/dL Normal [facility] Glucose Test strip (U) [Mass/Vol] Glucose [Mass/volume] in Urine by Test strip Normal [facility] Hematocrit Auto (Bld) [Volum e fraction]Ordered By: Jose Billy on 05-20-2024 Hematocrit (Bld) [Volume fraction] Hematocrit [Volume Fraction] of Blood by Automated count 38.8-50.0 [facility] Hematocrit [Volume Fraction] of Blood by Automated countOrdered By: Jose Billy on 05-20-2024 Hematocrit (Bld) [Volume fraction] 39.9 % Normal 38.8-50.0 [facility] Comment on above: Performed By: #### C UU, PSATF, ADDONUAPLUS, CBC, LIPID, CMP, TSH3 #### [facility] [address] Hemoglobin Test strip Ql (U) Ordered By: Jose Billy on 05-20-2024 Hemoglobin Ql (U) Negative Negative [facility] Hemoglobin Ql (U) Hemoglobin [Presence ] in Urine by Test strip Negative [facility] Hemoglobin [Mass/volume] in BloodOrdered By: Jose Billy on 05-20-2024 Hemoglobin (Bld) [Mass/Vol] 13.7 g/dL Normal 13.0-17.0 [facility] Comment on above: Performed By: #### C UU, PSATF, ADDONUAPLUS, CBC, LIPID, CMP, TSH3 #### [facility] [address] Hemoglobin (Bld) [Mass/Vol] Hemoglobin [Mass/volume] in Blood 13.0-17.0 [facility] Hyaline casts [#/area] in Ur ine sediment by Automated countOrdered By: Jose Billy on 05-20-2024 Hyaline casts Auto (Urine sed) [#/Area] None [LPF] 0-8 [facility] Hyaline casts Auto (Urine sed) [#/Area] Hyaline casts [#/area] in Urine sediment by Automated count 0-8 [facility] Ketones Test strip Ql (U)Ord ered By: Jose Billy on 05-20-2024 Ketones Ql (U) Ketones [Presence] i n Urine by Test strip Negative [facility] Ketones [Presence] in Urine by Test stripOrdered By: Jose Billy on 05-20-2024 Ketones Ql (U) Negative Normal Negative [facility] Comment on above: Order Comment: Name Collection Type:: Clean-Voided Midstream Performed By: #### C UU, PSATF, ADDONUAPLUS, CBC, LIPID, CMP, TSH3 #### [facility] [address] [place] [address] Laboratory - Microbiology an d Antimicrobial susceptibilityOrdered By: Jose Billy on 05-20-2024 Bacteria identified Cx Nom (U) 2 Days [facility] Bacteria identified Cx Nom (U) 2 Days [facility] Leukocyte esterase [Presence ] in Urine by Test stripOrdered By: Jose Billy on 05-20-2024 Leukocyte esterase Test strip Ql (U) Negative Normal Negative [facility] Comment on above: Order Comment: Name Collection Type:: Clean-Voided Midstream Performed By: #### C UU, PSATF, ADDONUAPLUS, CBC, LIPID, CMP, TSH3 #### [facility] [address] [place] [address] [place] Leukocyte esterase Test strip Ql (U) Leukocyte esterase [Presence] in Urine by Test strip Negative [facility] Leukocytes [#/area] in Urine sediment by Automated countOrdered By: Jose Billy on 05-20-2024 WBC Auto (Urine sed) [#/Area] 1-2 [HPF] 0-4 [facility] WBC Auto (Urine sed) [#/Area] Leukocytes [#/area] in Urine sediment by Automated count 0-4 [facility] Leukocytes [#/volume] correc nilam for nucleated erythrocytes in Blood by Automated counOrdered By: Jose Billy on 05-20-2024 WBC corrected for nucl RBC Auto (Bld) [#/Vol] 4.8 10*3/uL 4.1-10.5 [facility] WBC corrected for nucl RBC Auto (Bld) [#/Vol] Leukocytes [#/volume] corrected for nucleated erythrocytes in Blood by Automated coun .1-.5 [facility] Leukocytes [#/volume] in Blo od by Automated countOrdered By: Jose Billy on 05-20-2024 WBC (Bld) [#/Vol] 4.8 10*3/uL Normal 4.1-10.5 [facility] Comment on above: Performed By: #### C UU, PSATF, ADDONUAPLUS, CBC, LIPID, CMP, TSH3 #### [facility] [address] Lipid Panelon 05-20-2024 LDL Cholesterol,Calculated 114 mg/dL High 0-100 [facility] Comment on above: Result Comment: LDL ATP III CLASSIFICATION LDL less than 100 mg/dL Optimal LDL 100-129 mg/dL Near or above optimal LDL 130-159 mg/dL Borderline high LDL 160-189 mg/dL High LDL greater than 189 mg/dL Very high Performed By: #### C UU, PSATF, ADDONUAPLUS, CBC, LIPID, CMP, TSH3 #### [facility] [address] Triglyceride w/Reflex 57 mg/dL Normal 0-149 [facility] Comment on above: Result Comment: TRIG ATP III CLASSIFICATION TRIG less than 150 mg/dL Normal TRIG 150-199 mg/dL Borderline high TRIG 200-500 mg/dL High TRIG greater than 500 mg/dL Very high Standard traceable to the Center for Disease Conrtrol and Prevention (CDC) test method. Performed By: #### C UU, PSATF, ADDONUAPLUS, CBC, LIPID, CMP, TSH3 #### [facility] [address] VLDL CHOLESTEROL 11 mg/dL Normal [facility] Comment on above: Performed By: #### C UU, PSATF, ADDONUAPLUS, CBC, LIPID, CMP, TSH3 #### [facility] [address] Lymphocytes Auto (Bld) [#/Vo l]Ordered By: Jose Billy on 05-20-2024 Lymphocytes (Bld) [#/Vol] Lymphocytes [#/volume] in Blood by Automated count 1.00-4.8 [facility] Lymphocytes [#/volume] in Bl ood by Automated countOrdered By: Jose Billy on 05-20-2024 Lymphocytes (Bld) [#/Vol] 1.4 10*3/uL Normal 1.00-4.8 [facility] Comment on above: Performed By: #### C UU, PSATF, ADDONUAPLUS, CBC, LIPID, CMP, TSH3 #### [facility] [address] [place] [address] Lymphocytes/100 WBC Auto (Bl d)Ordered By: Jose Billy on 05-20-2024 Lymphocytes/100 WBC (Bld) Lymphocytes/100 leukocytes in Blood by Automated count . [facility] Lymphocytes/100 leukocytes i n Blood by Automated countOrdered By: Jose Billy on 05-20-2024 Lymphocytes/100 WBC (Bld) 28.4 % Normal . [facility] Comment on above: Performed By: #### C UU, PSATF, ADDONUAPLUS, CBC, LIPID, CMP, TSH3 #### [facility] [address] [place] [address] MCH Auto (RBC) [Entitic mass ]Ordered By: Jose Billy on 05-20-2024 MCH (RBC) [Entitic mass] MCH [Entitic mass] by Automated count 27.5-35.2 [facility] MCH [Entitic mass] by Automa nilam countOrdered By: Jose Billy on 05-20-2024 MCH (RBC) [Entitic mass] 29.4 pg Normal 27.5-35.2 [facility] Comment on above: Performed By: #### C UU, PSATF, ADDONUAPLUS, CBC, LIPID, CMP, TSH3 #### [facility] [address] [place] [address] MCHC Auto (RBC) [Mass/Vol]Or dered By: Jose Billy on 05-20-2024 MCHC (RBC) [Mass/Vol] 34.2 g/dL 32.5-35.6 [facility] MCHC (RBC) [Mass/Vol] MCHC [Mass/volume] by Automated count 32.5-35.6 [facility] MCV Auto (RBC) [Entitic vol] Ordered By: Jose Billy on 05-20-2024 MCV (RBC) [Entitic vol] MCV [Entitic vol ume] by Automated count 83.5-101 [facility] MCV [Entitic volume] by Auto mated countOrdered By: Jose Billy on 05-20-2024 MCV (RBC) [Entitic vol] 86.0 fL Normal 83.5-101 [facility] Comment on above: Performed By: #### C UU, PSATF, ADDONUAPLUS, CBC, LIPID, CMP, TSH3 #### [facility] [address] Monocytes Auto (Bld) [#/Vol] Ordered By: Jose Billy on 05-20-2024 Monocytes (Bld) [#/Vol] Automated blood monocyte count 0.0-0.8 [facility] Monocytes/100 WBC Auto (Bld) Ordered By: Jose Billy on 05-20-2024 Monocytes/100 WBC (Bld) Automated monocyte % . [facility] Neutrophils Auto (Bld) [#/Vo l]Ordered By: Jose Billy on 05-20-2024 Neutrophils (Bld) [#/Vol] Neutrophils [#/volume] in Blood by Automated count 1.8-7.7 [facility] Neutrophils [#/volume] in Bl ood by Automated countOrdered By: Jose Billy on 05-20-2024 Neutrophils (Bld) [#/Vol] 2.5 10*3/uL Normal 1.8-7.7 [facility] Comment on above: Performed By: #### C UU, PSATF, ADDONUAPLUS, CBC, LIPID, CMP, TSH3 #### [facility] [address] Neutrophils/100 WBC Auto (Bl d)Ordered By: Jose Billy on 05-20-2024 Neutrophils/100 WBC (Bld) Automated neutrophil % . [facility] Nitrite Test strip Ql (U)Ord ered By: Jose Billy on 05-20-2024 Nitrite Ql (U) Negative Negative [facility] Nitrite Ql (U) Nitrite [Presence] i n Urine by Test strip Negative [facility] No Panel InformationOrdered By: Jose Billy on 05-20-2024 Estimated GFR (CKD-EPI) > 60.0 mL/Min [facility] Creatinine Clearance (Chem N/A [facility] Nucleated erythrocytes [Pres ence] in Blood by Automated countOrdered By: Jose Billy on 05-20-2024 Nucleated RBC Auto Ql (Bld) 0.1 /100{WBC} 0-0.5 [facility] Nucleated RBC Auto Ql (Bld) Nucleated erythrocytes [Presence] in Blood by Automated count 0-0.5 [facility] PSA Diagnostic (Total Free)o n 05-20-2024 Prostate Spec Ag, Free 0.490 ng/mL Normal [facility] Comment on above: Performed By: #### C UU, PSATF, ADDONUAPLUS, CBC, LIPID, CMP, TSH3 #### [facility] [address] PSA Total (Not a Screen) 2.890 ng/mL Normal 0.000-4.00 0 [facility] Comment on above: Result Comment: Katy rendon tumor marker results determined by assays using different manufacturers or methods may not be comparable. [facility] canal equipment mechanic and method: [email or web address] DXI, CHEMILUMINESCENT IMMUNOASSAY. Performed By: #### C UU, PSATF, ADDONUAPLUS, CBC, LIPID, CMP, TSH3 #### [facility] [address] PSA,FREE% 16.9 % Normal [facility] Comment on above: Result Comment: Base d on the work of Kerry et al.ADRIANA. 279(19):1542:47.1998 the percent free PSA may be used to determine the relative risk of prostate cancer in individual men.The percent probability of prostate cancer by patient age for men with non-suspicious FILIBERTO results and total PSa between 4 and 10 ng/ml is as follows: % Free PSA 50 - 64 yrs. 65 - 75 yrs. 0 - 10 56% 55% 10 - 15 24% 35% 15 - 20 17% 23% 20 - 25 10% 20% >25 5% 9% PERFORMED BY: [place] [address] PATHOLOGIST INSPECTOR BOILER JUANCARLOS BAINS M.D. Performed By: #### C UU, PSATF, ADDONUAPLUS, CBC, LIPID, CMP, TSH3 #### [facility] [address] [place] [address] Platelet mean volume Auto (B ld) [Entitic vol]Ordered By: Jose Billy on 05-20-2024 Platelet mean volume (Bld) [Entitic vol] Platelet mean volume [Entitic volume] in Blood by Automated count 6.6-10.1 [facility] Platelet mean volume [Entiti c volume] in Blood by Automated countOrdered By: Jose Billy on 05-20-2024 Platelet mean volume (Bld) [Entitic vol] 8.2 fL Normal 6.6-10.1 [facility] Comment on above: Performed By: #### C UU, PSATF, ADDONUAPLUS, CBC, LIPID, CMP, TSH3 #### [address] Platelets Auto (Bld) [#/Vol] Ordered By: Jose Billy on 05-20-2024 Platelets (Bld) [#/Vol] Platelets [#/vol ume] in Blood by Automated count 150-450 [facility] Platelets [#/volume] in Bloo d by Automated countOrdered By: Jose Billy on 05-20-2024 Platelets (Bld) [#/Vol] 164 10*3/uL Normal 150-450 [facility] Comment on above: Performed By: #### C UU, PSATF, ADDONUAPLUS, CBC, LIPID, CMP, TSH3 #### [address] Potassium [Moles/volume] in Serum or PlasmaOrdered By: Jose Billy on 05-20-2024 Potassium [Moles/Vol] 4.5 mmol/L Normal 3.5-5.1 [facility] Comment on above: Performed By: #### C UU, PSATF, ADDONUAPLUS, CBC, LIPID, CMP, TSH3 #### [facility] [address] [place] [address] [place] Potassium [Moles/Vol] Potassium [Moles/v olume] in Serum or Plasma 3.5-5.1 [facility] Prostate Specific Ag Free [M ass/volume] in Serum or PlasmaOrdered By: Jose Billy on 05-20-2024 Free PSA [Mass/Vol] 0.490 ng/mL [facility] Free PSA [Mass/Vol] Prostate Specific Ag Free [Mass/volume] in Serum or Plasma [facility] Prostate specific Ag [Mass/v olume] in Serum or PlasmaOrdered By: Jose Billy on 05-20-2024 Prostate specific Ag [Mass/Vol] 2.890 ng/mL 0.000-4.00 0 [facility] Comment on above: Serial tumor marker results determined by assays using different manufacturers or methods may not be comparable.[facility] canal equipment mechanic and method:angelMD [email or web address], CHEMILUMINESCENT IMMUNOASSAY. Prostate specific Ag [Mass/Vol] Prostate specific Ag [Mass/volume] in Serum or Plasma 0.000-4.00 0 [facility] Comment on above: Serial tumor marker results determined by assays using different manufacturers or methods may not be comparable.[facility] canal equipment mechanic and method:angelMD DXI, CHEMILUMINESCENT IMMUNOASSAY. Protein Test strip (U) [Mass /Vol]Ordered By: Jose Billy on 05-20-2024 Protein (U) [Mass/Vol] Negative Negative [facility] Protein (U) [Mass/Vol] Protein [Mass/vol ume] in Urine by Test strip Negative [facility] Protein [Mass/volume] in Ser um or PlasmaOrdered By: Jose Billy on 05-20-2024 Protein [Mass/Vol] 5.8 g/dL Low 6.4-8.9 [facility] Comment on above: Performed By: #### C UU, PSATF, ADDONUAPLUS, CBC, LIPID, CMP, TSH3 #### [facility] [address] [place] [id number] [facility] Protein [Mass/Vol] Protein [Mass/volume ] in Serum or Plasma Low 6.4-8.9 [facility] RBC Auto (Bld) [#/Vol]Ordere d By: Jose Billy on 05-20-2024 RBC (Bld) [#/Vol] Erythrocytes [#/volu me] in Blood by Automated count 3.90-5.60 [facility] Serum globulin measurement b y calculation (mass/volume)Ordered By: Jose Billy on 05-20-2024 Globulin (S) [Mass/Vol] 1.9 g/dL Normal [facility] Comment on above: Performed By: #### C UU, PSATF, ADDONUAPLUS, CBC, LIPID, CMP, TSH3 #### [address] Serum or plasma albumin/glob ulin mass ratioOrdered By: Jose Billy on 05-20-2024 Albumin/Globulin [Mass ratio] 2.1 {ratio} Normal [facility] Comment on above: Performed By: #### C UU, PSATF, ADDONUAPLUS, CBC, LIPID, CMP, TSH3 #### [address] Albumin/Globulin [Mass ratio] Serum or plasma albumin/globulin mass ratio [facility] Serum or plasma anion gap de terminationOrdered By: Jose Billy on 05-20-2024 Anion gap [Moles/Vol] 9.7 mmol/L Normal 6.0-15.0 [facility] Comment on above: Performed By: #### C UU, PSATF, ADDONUAPLUS, CBC, LIPID, CMP, TSH3 #### [address] Anion gap [Moles/Vol] Serum or plasma an ion gap determination 6.0-15.0 [facility] Serum or plasma free prostat e specific antigen (PSA)/total PSA ratioOrdered By: Jose Billy on 05-20-2024 Free PSA/Total PSA [Mass fraction] 16.9 % [facility] Comment on above: Based on the work of Kerry et al.ADRIANA. 279(19):1542:47.1998 the percent free PSA may be used to determine the relative risk of prostate cancer in individual men.The percent probability of prostate cancer by patient age for men with non-suspicious FILIBERTO results and total PSa between 4 and 10 ng/ml is as follows:% Free PSA 50 - 64 yrs. 65 - 75 yrs. 0 - 10 56% 55% 10 - 15 24% 35% 15 - 20 17% 23% 20 - 25 10% 20% >25 5% 9% Free PSA/Total PSA [Mass fraction] Serum or plasma free prostate specific antigen (PSA)/total PSA ratio [facility] Comment on above: Based on the work of Kerry et al.ADRIANA. 27919):1542:47.1998 the percent free PSA may be used to determine the relative risk of prostate cancer in individual men.The percent probability of prostate cancer by patient age for men with non-suspicious FILIBERTO results and total PSa between 4 and 10 ng/ml is as follows:% Free PSA 50 - 64 yrs. 65 - 75 yrs. 0 - 10 56% 55% 10 - 15 24% 35% 15 - 20 17% 23% 20 - 25 10% 20% >25 5% 9% Serum or plasma high density lipoprotein (HDL) cholesterol measurementOrdered By: Jose Billy on 05-20-2024 Cholesterol in HDL [Mass/Vol] 53 mg/dL Normal 23-92 [facility] Comment on above: HDL CHOL ATP-III CLA SSIFICATION Cardiovascular RiskHDL > or equal to 60 mg/dL LOWHDL < 40 mg/dL HIGH Result Comment: HDL CHOL ATP-III CLASSIFICATION Cardiovascular Risk HDL > or equal to 60 mg/dL LOW HDL < 40 mg/dL HIGH Performed By: #### C UU, PSATF, ADDONUAPLUS, CBC, LIPID, CMP, TSH3 #### [facility] [address] [place] [address] Serum or plasma total choles terol/high density lipoprotein (HDL) cholesterol mass ratOrdered By: Jose Billy on 05-20-2024 Cholesterol.total/Isabela sterol in HDL [Mass ratio] 3.4 {ratio} Normal <5.0 [facility] Comment on above: Performed By: #### C UU, PSATF, ADDONUAPLUS, CBC, LIPID, CMP, TSH3 #### [facility] [address] Cholesterol.total/Isabela sterol in HDL [Mass ratio] Serum or plasma total cholesterol/high density lipoprotein (HDL) cholesterol mass rat <5.0 [facility] Sodium [Moles/volume] in Ser um or PlasmaOrdered By: Jose Billy on 05-20-2024 Sodium [Moles/Vol] 141 mmol/L Normal 136-145 [facility] Comment on above: Performed By: #### C UU, PSATF, ADDONUAPLUS, CBC, LIPID, CMP, TSH3 #### [facility] [address] Sodium [Moles/Vol] Sodium [Moles/volume ] in Serum or Plasma 136-145 [facility] Specific gravity Test strip (U) [Rel density]Ordered By: Jose Billy on 05-20-2024 Specific gravity (U) [Rel density] 1.007 1.001-1.03 0 [facility] Specific gravity (U) [Rel density] Specific gravity of Urine by Test strip 1.001-1.03 0 [facility] Thyrotropin [Units/volume] i n Serum or PlasmaOrdered By: Jose Billy on 05-20-2024 TSH Qn 3.56 m[IU]/L Normal 0.45-5.33 [facility] Comment on above: Result Comment: PERF ORMED BY: [facility] [address] [place] [address] PATHOLOGIST INSPECTOR BOILER JUANCARLOS BAINS M.D. Performed By: #### C UU, PSATF, ADDONUAPLUS, CBC, LIPID, CMP, TSH3 #### [facility] [address] TSH Qn Thyrotropin [Units/v olume] in Serum or Plasma 0.45-5.33 [facility] Triglyceride [Mass/volume] i n Serum or PlasmaOrdered By: Jose Billy on 05-20-2024 Triglyceride [Mass/Vol] 57 mg/dL 0-149 [facility] Comment on above: TRIG ATP III CLASSIF ICATIONTRIG less than 150 mg/dL NormalTRIG 150-199 mg/dL Borderline highTRIG 200-500 mg/dL High TRIG greater than 500 mg/dL Very highStandard traceable to the Center for Disease Conrtrol and Prevention (CDC) test method. Triglyceride [Mass/Vol] Triglyceride [Ma ss/volume] in Serum or Plasma 0-149 [facility] Comment on above: TRIG ATP III CLASSIF ICATIONTRIG less than 150 mg/dL NormalTRIG 150-199 mg/dL Borderline highTRIG 200-500 mg/dL High TRIG greater than 500 mg/dL Very highStandard traceable to the Center for Disease Conrtrol and Prevention (CDC) test method. Urea nitrogen [Mass/volume] in Serum or PlasmaOrdered By: Jose Billy on 05-20-2024 Urea nitrogen [Mass/Vol] 17 mg/dL Normal 03-12 [facility] Comment on above: Performed By: #### C UU, PSATF, ADDONUAPLUS, CBC, LIPID, CMP, TSH3 #### [address] Urea nitrogen [Mass/Vol] Urea nitrogen [Mass/volume] in Serum or Plasma - [facility] Urine Cultureon 05-20-2024 Bacteria identified Cx Nom (U) <9,000 colonies/ml mixed bacterial skin contaminants 2 Days PERFORMED BY: [place] [address] PATHOLOGIST INSPECTOR BOILER JUANCARLOS BAINS M.D. Normal [facility] Comment on above: Performed By: #### C UU, PSATF, ADDONUAPLUS, CBC, LIPID, CMP, TSH3 #### [address] Urine appearanceOrdered By: Jose Billy on 05-20-2024 Appearance (U) Clear Normal Clear [facility] Comment on above: Order Comment: Name Collection Type:: Clean-Voided Midstream Performed By: #### C UU, PSATF, ADDONUAPLUS, CBC, LIPID, CMP, TSH3 #### [address] Urine cultureOrdered By: Jose E Billy on 05-20-2024 Bacteria identified Cx Nom (U) Urine culture [facility] Urobilinogen Test strip (U) [Mass/Vol]Ordered By: Jose Billy on 05-20-2024 Urobilinogen (U) [Mass/Vol] Normal mg/dL Normal [facility] Urobilinogen (U) [Mass/Vol] Urobilinogen [Mass/volume] in Urine by Test strip Normal [facility] WBC Auto (Bld) [#/Vol]Ordere d By: Jose Billy on 05-20-2024 WBC (Bld) [#/Vol] Leukocytes [#/volume ] in Blood by Automated count 4.1-10.5 [facility] pH Test strip (U)Ordered By: Jose Billy on 05-20-2024 pH (U) pH of Urine by Test strip 5.0-9.0 [facility] pH of Urine by Test stripOrd ered By: Jose Billy on 05-20-2024 pH (U) 7.0 [pH] Normal 5.0-9.0 [facility] Comment on above: Order Comment: Name Collection Type:: Clean-Voided Midstream Performed By: #### C UU, PSATF, ADDONUAPLUS, CBC, LIPID, CMP, TSH3 #### [facility] [address] [place] [id number] [place] A1C with Estimated Average G luon 05-11-2024 Glucose [Mass/Vol] 114 mg/dL Normal [facility] Comment on above: Result Comment: PERF ORMED BY: [place] [address] PATHOLOGIST INSPECTOR BOILER JUANCARLOS BAINS M.D. Performed By: #### C UU, PSATF, ADDONUAPLUS, CBC, LIPID, CMP, TSH3 #### [facility] [address] [place] [address] [place] Albumin Levelon 05-11-2024 Albumin [Mass/Vol] 4.3 g/dL Normal 3.5-5.7 [facility] Comment on above: Performed By: #### C UU, PSATF, ADDONUAPLUS, CBC, LIPID, CMP, TSH3 #### [facility] [address] [place] [id number] [place] Albumin [Mass/volume] in Ser um or Plasma by Bromocresol green (BCG) dye binding methoOrdered By: Reji Wesley on 05-11-2024 Albumin BCG dye [Mass/Vol] 4.3 g/dL 3.5-5.7 [facility] Albumin BCG dye [Mass/Vol] Albumin [Mass/volume] in Serum or Plasma by Bromocresol green (BCG) dye binding metho 3.5-5.7 [facility] Blood estimated average gluc ose determination by estimation from glycated hemoglobinOrdered By: Reji Wesley on 05-11-2024 Average glucose Estimated from glycated hemoglobin (Bld) [Mass/Vol] Glucose mean value [Mass/volume] in Blood Estimated from glycated hemoglobin [facility] Cotinine [Mass/volume] in Se rum or PlasmaOrdered By: Reji Wesley on 05-11-2024 Cotinine [Mass/Vol] <1.0 ng/mL . [facility] Comment on above: This test was develo ped and its performance characteristicsdetermined by [facility]. It has not been cleared orapproved by the Food and Drug Administration.Cotinine levels greater than 20.0 are consistent with theuse of tobacco or tobacco cessation products.Performed at: [facility] [address] [id number] Director: Corey Casanova MD, Phone: [phone] Cotinine [Mass/Vol] Cotinine [Mass/volum e] in Serum or Plasma . [facility] Comment on above: This test was develo ped and its performance characteristicsdetermined by [facility]. It has not been cleared orapproved by the Food and Drug Administration.Cotinine levels greater than 20.0 are consistent with theuse of tobacco or tobacco cessation products.Performed at: [facility] [address] [id number] Director: Corey Casanova MD, Phone: [phone] Glucose mean value [Mass/vol ume] in Blood Estimated from glycated hemoglobinOrdered By: Reji Wesley on 05-11-2024 Average glucose Estimated from glycated hemoglobin (Bld) [Mass/Vol] 114 mg/dL [facility] Hemoglobin A1c percentageOrd ered By: Reji Wesley on 05-11-2024 HbA1c (Bld) [Mass fraction] 5.6 % Normal 4.3-5.6 [facility] Comment on above: Increased risk for d iabetes: 5.7 - 6.4diabetes: >6.4glycemic control for adults with diabetes: <7.0 Result Comment: Incr eased risk for diabetes: 5.7 - 6.4 diabetes: >6.4 glycemic control for adults with diabetes: <7.0 Performed By: #### C UU, PSATF, ADDONUAPLUS, CBC, LIPID, CMP, TSH3 #### [address] Hemoglobin A1c/Hemoglobin.to kira in BloodOrdered By: Reji Wesley on 05-11-2024 HbA1c (Bld) [Mass fraction] Hemoglobin A1c percentage 4.3-5.6 [facility] Comment on above: Increased risk for d iabetes: 5.7 - 6.4diabetes: >6.4glycemic control for adults with diabetes: <7.0 Hemoglobin [Mass/volume] in BloodOrdered By: Reji Wesley on 05-11-2024 Hemoglobin (Bld) [Mass/Vol] 13.9 g/dL Normal 13.0-17.0 [facility] Comment on above: Result Comment: PERF ORMED BY: [address] [address] PATHOLOGIST INSPECTOR BOILER JUANCARLOS BAINS M.D. Performed By: #### C UU, PSATF, ADDONUAPLUS, CBC, LIPID, CMP, TSH3 #### [place] [id number] [facility] Hemoglobin (Bld) [Mass/Vol] Hemoglobin [Mass/volume] in Blood 13.0-17.0 [facility] MRSA Cultureon 05-11-2024 MRSA Culture No MRSA Isolated 2 D ays PERFORMED BY: [address] [address] PATHOLOGIST INSPECTOR BOILER JUANCARLOS BAINS M.D. Normal [facility] Comment on above: Performed By: #### C UU, PSATF, ADDONUAPLUS, CBC, LIPID, CMP, TSH3 #### [facility] [address] Nicotine [Mass/volume] in Se rum or PlasmaOrdered By: Reji Wesley on 05-11-2024 Nicotine [Mass/Vol] <1.0 ng/mL . [facility] Comment on above: This test was develo ped and its performance characteristicsdetermined by [facility]. It has not been cleared orapproved by the Food and Drug Administration.Nicotine levels greater than 2.0 are consistent with theuse of tobacco or tobacco cessation products. Nicotine [Mass/Vol] Nicotine [Mass/volum e] in Serum or Plasma . [facility] Comment on above: This test was develo ped and its performance characteristicsdetermined by [facility]. It has not been cleared orapproved by the Food and Drug Administration.Nicotine levels greater than 2.0 are consistent with theuse of tobacco or tobacco cessation products. Nicotine/Cotinine Bloodon Cotinine, Blood <1.0 Normal . [facility] Comment on above: Result Comment: This test was developed and its performance characteristics determined by [facility]. It has not been cleared or approved by the Food and Drug Administration. Cotinine levels greater than 20.0 are consistent with the use of tobacco or tobacco cessation products. Performed at: [address] [id number] [employer] Tender: Corey Casanova MD, Phone: [phone] PERFORMED BY: [place] [address] PATHOLOGIST INSPECTOR BOILER JUANCARLOS BAINS M.D. Performed By: #### C UU, PSATF, ADDONUAPLUS, CBC, LIPID, CMP, TSH3 #### [facility] [address] Nicotine, Blood <1.0 Normal . [facility] Comment on above: Result Comment: This test was developed and its performance characteristics determined by [facility]. It has not been cleared or approved by the Food and Drug Administration. Nicotine levels greater than 2.0 are consistent with the use of tobacco or tobacco cessation products. Performed By: #### C UU, PSATF, ADDONUAPLUS, CBC, LIPID, CMP, TSH3 #### [facility] [address] [place] [address] [facility] Vitamin D 25 Hydroxy Totalon 05-11-2024 Vitamin D 25 Hydroxy Total 60.1 ng/mL Normal 30-100 [facility] Comment on above: Result Comment: MURPHY MIN D STATUS 25([place])VITAMIN D RANGE (ng/mL) Deficient <20 Insufficient 20 to <30 Sufficient 30 to 100 Reference: Remigio Alfaro, Ronen MEYERS, et al. Evaluation,treatment, and prevention of vitamin D deficiency; an Endocrine Society clinical practice guideline. JCEM. 2010; 96(7):191-. PERFORMED BY: [address] [place] [address] PATHOLOGIST INSPECTOR BOILER JUANCARLOS BAINS M.D. Performed By: #### C UU, PSATF, ADDONUAPLUS, CBC, LIPID, CMP, TSH3 #### [place] [id number] [facility] Vitamin D+Metabolites [Mass/ volume] in Serum or PlasmaOrdered By: Reji Wesley on 05-11-2024 Vitamin D+Metabolites [Mass/Vol] 60.1 ng/mL 30-100 [facility] Comment on above: VITAMIN D STATUS 25( [place])VITAMIN D RANGE (ng/mL) Deficient <20 Insufficient 20 to <30Sufficient 30 to 100Reference: Remigio Alfaro, Ronen MEYERS, et al. Evaluation,treatment, and prevention of vitamin D deficiency; an Endocrine Society clinical practice guideline. JCEM. 2010; 96(7):191-. Vitamin D+Metabolites [Mass/Vol] Vitamin D+Metabolites [Mass/volume] in Serum or Plasma 30-100 [facility] Comment on above: VITAMIN D STATUS 25( [place])VITAMIN D RANGE (ng/mL) Deficient <20 Insufficient 20 to <30Sufficient 30 to 100Reference: Remigio Alfaro, Ronen MEYERS, et al. Evaluation,treatment, and prevention of vitamin D deficiency; an Endocrine Society clinical practice guideline. JCEM. 2010; 96(7):1911-30. Wound methicillin resistant Staphylococcus aureus (MRSA) cultureOrdered By: Reji Wesley on 05-11-2024 MRSA isol Org specific cx Ql (Unsp spec) No MRSA Isolated 2 Days [facility] MRSA isol Org specific cx Ql (Unsp spec) Wound methicillin resistant Staphylococcus aureus (MRSA) culture [facility] MRSA isol Org specific cx Ql (Unsp spec) No MRSA Isolated 2 Days [facility] Albumin [Mass/volume] in Ser um or PlasmaOrdered By: Jose Billy on 06-04-2022 Albumin [Mass/Vol] 3.9 g/dL 3.2-5.5 [facility] Basophils Auto (Bld) [#/Vol] Ordered By: Jose Billy on 06-04-2022 Basophils (Bld) [#/Vol] 0.0 10*3/uL 0.0-0.2 [facility] Basophils/100 WBC Auto (Bld) Ordered By: Jose Billy on 06-04-2022 Basophils/100 WBC (Bld) 0.6 % . [facility] Bilirubin Test strip Ql (U)O rdered By: Jose Billy on 06-04-2022 Bilirubin Ql (U) Negative Negative [facility] Cholesterol [Mass/volume] in Serum or PlasmaOrdered By: Jose Billy on 06-04-2022 Cholesterol [Mass/Vol] 191 mg/dL 140-200 [facility] Comment on above: Chol less than 200 m g/dl low riskChol 201-239 mg/dl borderline riskChol 240 mg/dl and greater high risk Cholesterol in LDL Calc [Mas s/Vol]Ordered By: Jose Billy on 06-04-2022 Cholesterol in LDL [Mass/Vol] 112 mg/dL 0-100 [facility] Comment on above: LDL ATP III CLASSIFI CATIONLDL less than 100 mg/dL OptimalLDL 100-129 mg/dL Near or above optimalLDL 130-159 mg/dL Borderline highLDL 160-189 mg/dL HighLDL greater than 189 mg/dL Very high Cholesterol in VLDL Calc [Ma ss/Vol]Ordered By: Jose Billy on 06-04-2022 Cholesterol in VLDL [Mass/Vol] 14 mg/dL [facility] Color Auto (U)Ordered By: Jay Billy on 06-04-2022 Color (U) Yellow Yellow [facility] Creatinine and Glomerular fi ltration rate.predicted panel (S/P/Bld)Ordered By: Jose Billy on 06-04-2022 Creatinine [Mass/Vol] 1.44 mg/dL 0.64-1.27 [facility] Eosinophils Auto (Bld) [#/Vo l]Ordered By: Jose Billy on 06-04-2022 Eosinophils (Bld) [#/Vol] 0.2 10*3/uL 0.0-0.45 [facility] Eosinophils/100 WBC Auto (Bl d)Ordered By: Jose Billy on 06-04-2022 Eosinophils/100 WBC (Bld) 5.5 % . [facility] Erythrocyte distribution wid th Auto (RBC) [Ratio]Ordered By: Jose Billy on 06-04-2022 Erythrocyte distribution width (RBC) [Ratio] 13.5 % 12.0-14.8 [facility] Estimated glomerular filtrat ion rate (GFR) non- AmericanOrdered By: Jose Billy on 06-04-2022 GFR/1.73 sq M.predicted among non-blacks MDRD (S/P/Bld) [Vol rate/Area] 49 mL/Min [facility] Globulin Calc (S) [Mass/Vol] Ordered By: Jose Billy on 06-04-2022 Globulin (S) [Mass/Vol] 2.3 g/dL [facility] Hematocrit Auto (Bld) [Volum e fraction]Ordered By: Jose Billy on 06-04-2022 Hematocrit (Bld) [Volume fraction] 44.7 % 38.8-50.0 [facility] Hemoglobin [Mass/volume] in BloodOrdered By: Jose Billy on 06-04-2022 Hemoglobin (Bld) [Mass/Vol] 15.1 g/dL 13.0-17.0 [facility] Ketones Auto test strip (U) [Mass/Vol]Ordered By: Jose Billy on 06-04-2022 Ketones (U) [Mass/Vol] Negative Negative Fi [facility] - Hematology and Cell countsOrdered By: Jose Billy on 06-04-2022 Nucleated RBC/100 WBC (Bld) [Ratio] 0.2 % 0-0.5 [facility] Leukocytes [#/volume] in Blo od by Automated countOrdered By: Jose Billy on 06-04-2022 WBC (Bld) [#/Vol] 4.1 10*3/uL 4.5-11.0 [facility] Lymphocytes Auto (Bld) [#/Vo l]Ordered By: Jose Billy on 06-04-2022 Lymphocytes (Bld) [#/Vol] 1.2 10*3/uL 1.00-4.8 [facility] Lymphocytes/100 WBC Auto (Bl d)Ordered By: Jose Billy on 06-04-2022 Lymphocytes/100 WBC (Bld) 30.0 % . [facility] MCH Auto (RBC) [Entitic mass ]Ordered By: Jose Billy on 06-04-2022 MCH (RBC) [Entitic mass] 30.3 pg 27.5-35.2 [facility] MCHC Auto (RBC) [Mass/Vol]Or dered By: Jose Billy on 06-04-2022 MCHC (RBC) [Mass/Vol] 33.7 g/dL 32.5-35.6 [facility] MCV Auto (RBC) [Entitic vol] Ordered By: Jose Billy on 06-04-2022 MCV (RBC) [Entitic vol] 89.7 fL 83.5-101 [facility] Monocytes Auto (Bld) [#/Vol] Ordered By: Jose Billy on 06-04-2022 Monocytes (Bld) [#/Vol] 0.4 10*3/uL 0.0-0.8 [facility] Monocytes/100 WBC Auto (Bld) Ordered By: Jose Billy on 06-04-2022 Monocytes/100 WBC (Bld) 10.4 % . [facility] Neutrophils Auto (Bld) [#/Vo l]Ordered By: Jose Billy on 06-04-2022 Neutrophils (Bld) [#/Vol] 2.2 10*3/uL 1.8-7.7 [facility] Neutrophils/100 WBC Auto (Bl d)Ordered By: Jose Billy on 06-04-2022 Neutrophils/100 WBC (Bld) 53.5 % . [facility] Nitrite Test strip Ql (U)Ord ered By: Jose Billy on 06-04-2022 Nitrite Ql (U) Negative Negative [facility] No Panel InformationOrdered By: Jose Billy on 06-04-2022 Estimated GFR () 59 mL/Min [facility] Comment on above: GFR estimated refere nce range: According to KDOQI guidelines, <60 ml/min/1.73m2 is sufficient to diagnose a patient with chronic kidney disease. Pharmacy Creatinine Clearance (Chem N/A [facility] Prostate Specific Antigen Total 1.640 ng/mL 0.000-4.00 0 [facility] Platelet mean volume Auto (B ld) [Entitic vol]Ordered By: Jose Billy on 06-04-2022 Platelet mean volume (Bld) [Entitic vol] 9.0 fL 6.6-10.1 [facility] Platelets Auto (Bld) [#/Vol] Ordered By: Jose Billy on 06-04-2022 Platelets (Bld) [#/Vol] 170 10*3/uL 150-450 [facility] Protein Auto test strip (U) [Mass/Vol]Ordered By: Jose Billy on 06-04-2022 Protein (U) [Mass/Vol] Negative Negative [facility] Protein [Mass/volume] in Ser um or PlasmaOrdered By: Jose Billy on 06-04-2022 Protein [Mass/Vol] 6.2 g/dL 6.1-7.9 [facility] RBC Auto (Bld) [#/Vol]Ordere d By: Jose Billy on 06-04-2022 RBC (Bld) [#/Vol] 4.98 10*6/uL 3.90-5.60 [facility] Serum or plasma alanine miller otransferase measurement without P-5'-P (enzymatic activiOrdered By: Jose Billy on 06-04-2022 ALT No additional P-5'-P [Catalytic activity/Vol] 25 U/L 10-60 [facility] Serum or plasma albumin/glob ulin mass ratioOrdered By: Jose Billy on 06-04-2022 Albumin/Globulin [Mass ratio] 1.7 {ratio} [facility] Serum or plasma alkaline iwona sphatase measurement (enzymatic activity/volume)Ordered By: Jose Billy on 06-04-2022 ALP [Catalytic activity/Vol] 84 U/L 32-92 [facility] Serum or plasma anion gap de terminationOrdered By: Jose Billy on 06-04-2022 Anion gap [Moles/Vol] 10.8 mmol/L 6.0-15.0 [facility] Serum or plasma aspartate am inotransferase measurement (enzymatic activity/volume)Ordered By: Jose Billy on 06-04-2022 AST [Catalytic activity/Vol] 27 U/L 10- [facility] Serum or plasma calcium riley urement (mass/volume)Ordered By: Jose Billy on 06-04-2022 Calcium [Mass/Vol] 9.4 mg/dL 8.2-10.2 [facility] Serum or plasma chloride ana surement (moles/volume)Ordered By: Jose Billy on 06-04-2022 Chloride [Moles/Vol] 106 mmol/L 95-114 [facility] Serum or plasma glucose riley urement (mass/volume)Ordered By: Jose Billy on 06-04-2022 Glucose [Mass/Vol] 87 mg/dL 70-100 [facility] Comment on above: ADA recommended refe rence rangeRandom Glucose Reference Range is dependent on time and content of last meal. Glucose of more than 200 mg/dL in a nonstressed, ambulatory subject supports the diagnosis of Diabetes Mellitus. Serum or plasma high density lipoprotein (HDL) cholesterol measurementOrdered By: Jose Billy on 06-04-2022 Cholesterol in HDL [Mass/Vol] 65 mg/dL 29-71 [facility] Comment on above: HDL CHOL ATP-III CLA SSIFICATION Cardiovascular RiskHDL > or equal to 60 mg/dL LOWHDL < 40 mg/dL HIGH Serum or plasma potassium me asurement (moles/volume)Ordered By: Jose Billy on 06-04-2022 Potassium [Moles/Vol] 4.4 mmol/L 3.5-5.1 [facility] Serum or plasma sodium measu rement (moles/volume)Ordered By: Jose Billy on 06-04-2022 Sodium [Moles/Vol] 141 mmol/L 136-146 [facility] Serum or plasma total biliru bin measurement (mass/volume)Ordered By: Jose Billy on 06-04-2022 Bilirubin [Mass/Vol] 0.8 mg/dL 0.3-1.2 [facility] Serum or plasma total carbon dioxide measurement (moles/volume)Ordered By: Jose Billy on 06-04-2022 CO2 [Moles/Vol] 28.6 mmol/L 22.0-30.0 [facility] Serum or plasma total choles terol/high density lipoprotein (HDL) cholesterol mass ratOrdered By: Jose Billy on 06-04-2022 Cholesterol.total/Isabela sterol in HDL [Mass ratio] 2.9 {ratio} <5.0 [facility] Serum or plasma urea nitroge n measurement (mass/volume)Ordered By: Jose Billy on 06-04-2022 Urea nitrogen [Mass/Vol] 12 mg/dL 9- [facility] Specific gravity Auto test s trip (U) [Rel density]Ordered By: Jose Billy on 06-04-2022 Specific gravity (U) [Rel density] 1.008 1.001-1.03 0 [facility] TSH DL <= 0.005 mIU/L QnOrde red By: Jose Billy on 06-04-2022 TSH Qn 4.45 m[IU]/L 0.45-5.33 [facility] Triglyceride [Mass/volume] i n Serum or PlasmaOrdered By: Jose Billy on 06-04-2022 Triglyceride [Mass/Vol] 70 mg/dL 35-149 [facility] Comment on above: TRIG ATP III CLASSIF ICATIONTRIG less than 150 mg/dL NormalTRIG 150-199 mg/dL Borderline highTRIG 200-500 mg/dL High TRIG greater than 500 mg/dL Very highStandard traceable to the Center for Disease Conrtrol and Prevention (CDC) test method. Urine clarity by refractomet ry automatedOrdered By: Jose Billy on 06-04-2022 Clarity Refractometry automated (U) Clear Clear [facility] Urine glucose measurement by automated test strip (mass/volume)Ordered By: Jose Billy on 06-04-2022 Glucose Auto test strip (U) [Mass/Vol] Normal mg/dL Normal [facility] Urine hemoglobin detection b y automated test stripOrdered By: Jose Billy on 06-04-2022 Hemoglobin Auto test strip Ql (U) Negative Negative [facility] Urine leukocyte esterase det ection by automated test stripOrdered By: Jose Billy on 06-04-2022 Leukocyte esterase Auto test strip Ql (U) Negative Negative [facility] Urobilinogen Auto test strip (U) [Mass/Vol]Ordered By: Jose Billy on 06-04-2022 Urobilinogen (U) [Mass/Vol] Normal mg/dL Normal [facility] pH Auto test strip (U)Ordere d By: Jose Billy on 06-04-2022 pH (U) 7.0 [pH] 5.0-9.0 [facility] Vital Signs Date Time Vital Sign Value Performing Clinician Facility 10-13-2024 11:34-0500 Diastolic blood pressure 76 mm[Hg] Jose Billy DO Work Phone: [facility] 10-13-2024 11:34-0500 Systolic blood pressure 142 mm[Hg] Jose Billy DO Work Phone: [facility] 10-13-2024 08:00-0500 Body temperature 97.7 [degF] Jose Billy DO Work Phone: [facility] 10-13-2024 08:00-0500 Heart rate 70 /min Jose Billy DO Work Phone: [facility] 10-13-2024 08:00-0500 Respiratory rate 18 /min Jose Billy DO Work Phone: [facility] 10-13-2024 08:00-0500 SaO2% (BldA) [Mass fraction] 94 % Jose Billy DO Work Phone: [facility] 10-13-2024 06:14-0500 Body weight 113 kg Jose Billy DO Work Phone: [facility] 10-12-2024 13:17-0500 Inhaled oxygen flow rate 8 L/min Jose Billy DO Work Phone: [facility] 10-12-2024 07:25-0500 Body height 182.88 cm Jose Rothronnie DO Work Phone: [facility] 07-07-2024 11:00-0500 Body temperature 99.2 [degF] Jose Billy DO Work Phone: [facility] 07-07-2024 11:00-0500 Diastolic blood pressure 80 mm[Hg] Jose Billy DO Work Phone: [facility] 07-07-2024 11:00-0500 Heart rate 56 /min Jose Billy DO Work Phone: [facility] 07-07-2024 11:00-0500 Respiratory rate 16 /min Jose Billy DO Work Phone: [facility] 07-07-2024 11:00-0500 SaO2% (BldA) [Mass fraction] 96 % Jose Mariajose DO Work Phone: [facility] 07-07-2024 11:00-0500 Systolic blood pressure 155 mm[Hg] Jose Billy DO Work Phone: [facility] 07-07-2024 05:06-0500 Body weight 108.4 kg Jose Billy DO Work Phone: [facility] 07-06-2024 10:20-0500 Inhaled oxygen flow rate 8 L/min Jose Mariajose DO Work Phone: [facility] 07-06-2024 06:10-0500 Body height 182.88 cm Jose Billy DO Work Phone: [facility] 06-19-2024 07:59-0400 Body height 177.8 cm DO Jose Rothronnie Work Phone: [facility] 06-19-2024 07:59-0400 Body mass index (BMI) [Ratio] 33.7 kg/m2 DO Jose Billy Work Phone: [facility] 06-19-2024 07:59-0400 Body weight 106.59 kg DO Jose Billy Work Phone: [facility] 05-26-2024 10:12-0400 Body height 177.8 cm DO Jose Billy Work Phone: [facility] 05-26-2024 10:12-0400 Body mass index (BMI) [Ratio] 33.8 kg/m2 DO Jose Billy Work Phone: [facility] 05-26-2024 10:120400 Body temperature 97.7 [degF] DO Jose Billy Work Phone: [facility] 05-26-2024 10:12-0400 Body weight 107.04 kg DO Jose Billy Work Phone: [facility] 05-26-2024 10:12-0400 Diastolic blood pressure 86 mm[Hg] DO Jose Billy Work Phone: [facility] 05-26-2024 10:12-0400 Heart rate 60 /min DO Jose Billy Work Phone: [facility] 05-26-2024 10:12-0400 SaO2% (BldA) [Mass fraction] 97 % DO Jose Billy Work Phone: [facility] 05-26-2024 10:12-0400 Systolic blood pressure 138 mm[Hg] DO Jose Billy Work Phone: [facility] 05-11-2024 13:22-0400 Body height 177.8 cm [facility] 05-11-2024 13:22-0400 Body mass index (BMI) [Ratio] 34.4 kg/m2 [facility] 05-11-2024 13:22-0400 Body weight 108.86 kg [facility] 07-31-2023 14:30-0500 Body height 177.8 cm Reji Wesley II Other [employer] Other 07-31-2023 14:30-0500 Body mass index (BMI) [Ratio] 34.43 kg/m2 Reji Wesley II Other [facility] Other 07-31-2023 14:30-0500 Body weight 108.86 kg Reji Wesley II Other [facility] Other 05-23-2023 09:50-0400 Body height 177.8 cm Jose Billy Other [employer] Other 05-23-2023 09:50-0400 Body mass index (BMI) [Ratio] 34.79 kg/m2 Jose Billy Other [employer] Other 05-23-2023 09:50-0400 Body temperature 98.9 [degF] Jose Billy Other [employer] Other 05-23-2023 09:50-0400 Body weight 110 kg Jose iBlly Other [employer] Other 05-23-2023 09:50-0400 Diastolic blood pressure 84 mm[Hg] Jose Billy Other [employer] Other 05-23-2023 09:50-0400 Respiratory rate 18 /min Jose Billy Other [facility] Other 05-23-2023 09:50-0400 SaO2% (BldA) [Mass fraction] 96 % Jose Billy Other [employer] Other 05-23-2023 09:50-0400 Systolic blood pressure 132 mm[Hg] Jose Billy Other [employer] Other 06-07-2022 11:30-0400 Body height 177.8 cm Jose Billy Other [employer] Other 06-07-2022 11:30-0400 Body mass index (BMI) [Ratio] 34.72 kg/m2 Jose Billy Other [employer] Other 06-07-2022 11:30-0400 Body temperature 97.4 [degF] Jose Billy Other [employer] Other 06-07-2022 11:30-0400 Body weight 109.77 kg Jose Billy Other [employer] Other 06-07-2022 11:30-0400 Diastolic blood pressure 78 mm[Hg] Jose Billy Other [employer] Other 06-07-2022 11:30-0400 Respiratory rate 18 /min Jose Gonzalezronnie Other [employer] Other 06-07-2022 11:30-0400 SaO2% (BldA) [Mass fraction] 98 % Jose Billy Other [employer] Other 06-07-2022 11:30-0400 Systolic blood pressure 136 mm[Hg] Jose Billy Other [employer] Other 01-04-2022 11:40-0400 Body height 177.8 cm Richard Genna Other [employer] Other 01-04-2022 11:40-0400 Body mass index (BMI) [Ratio] 34.12 kg/m2 Richard Genna Other [facility] Other 01-04-2022 11:40-0400 Body temperature 96.2 [degF] Richard Genna Other [facility] Other 01-04-2022 11:40-0400 Body weight 107.87 kg Richard Genna Other [facility] Other 01-04-2022 11:40-0400 Diastolic blood pressure 77 mm[Hg] Richard Genna Other [facility] Other 01-04-2022 11:40-0400 Respiratory rate 18 /min Richard Genna Other [facility] Other 01-04-2022 11:40-0400 SaO2% (BldA) [Mass fraction] 97 % Richard Genna Other [facility] Other 01-04-2022 11:40-0400 Systolic blood pressure 123 mm[Hg] Richard Genna Other [facility] Other 09-25-2021 17:00-0500 Body height 177.8 cm Richard Genna Other [facility] Other 09-25-2021 17:00-0500 Body mass index (BMI) [Ratio] 34.81 kg/m2 Richard Genna Other [facility] Other 09-25-2021 17:00-0500 Body temperature 96.6 [degF] Richard Genna Other [facility] Other 09-25-2021 17:00-0500 Body weight 110.04 kg Richard Genna Other [facility] Other 09-25-2021 17:00-0500 Diastolic blood pressure 91 mm[Hg] Richard Genna Other [facility] Other 09-25-2021 17:00-0500 Respiratory rate 18 /min Richard Genna Other [facility] Other 09-25-2021 17:00-0500 SaO2% (BldA) [Mass fraction] 97 % Richard Genna Other [facility] Other 09-25-2021 17:00-0500 Systolic blood pressure 164 mm[Hg] Richard Genna Other [facility] Other 06-06-2021 10:10-0400 Body height 177.8 cm Jose Billy Other [facility] Other 06-06-2021 10:10-0400 Body mass index (BMI) [Ratio] 34.58 kg/m2 Jose Billy Other [facility] Other 06-06-2021 10:10-0400 Body temperature 97.5 [degF] Jose Billy Other [facility] Other 06-06-2021 10:10-0400 Body weight 109.32 kg Jose Billy Other [facility] Other 06-06-2021 10:10-0400 Diastolic blood pressure 78 mm[Hg] Jose Billy Other [employer] Other 06-06-2021 10:10-0400 SaO2% (BldA) [Mass fraction] 97 % Jose Billy Other [employer] Other 06-06-2021 10:10-0400 Systolic blood pressure 138 mm[Hg] Jose Billy Other [facility] Other Encounters Encounter Date Encounter Type Care Provider Facility Start: 01-06-2025 End: 01-06-2025 Patient encounter procedure Jose Billy DO Work Phone: [facility] Work Phone: Start: 01-06-2025 End: 01-06-2025 Patient encounter procedure Jose Billy DO Work Phone: [facility] Start: 01-06-2025 End: 01-06-2025 ambulatory Reji Wesley II Facility:[facility] Start: 12-14-2024 End: 12-14-2024 ambulatory Jose Billy DO Work Phone: [facility] Work Phone: Start: 12-14-2024 End: 12-14-2024 Discharged Recurring Jose Billy DO Work Phone: [facility] [place] Start: 11-30-2024 End: 11-30-2024 Patient encounter procedure Jose Billy DO Work Phone: [facility] [place] Work Phone: Start: 11-30-2024 End: 11-30-2024 ambulatory Jose Billy DO Work Phone: [facility] Work Phone: Start: 11-30-2024 Registered Recurring Jose trujillo DO Work Phone: [facility] [place] Start: 11-25-2024 Registered Recurring Jose trujillo DO Work Phone: [facility] [place] Start: 11-25-2024 End: 11-25-2024 ambulatory Jose Billy DO Work Phone: [facility] Work Phone: Start: 11-25-2024 End: 11-25-2024 Patient encounter procedure Jose Rothronnie DO Work Phone: [facility] Work Phone: Start: 11-23-2024 Registered Recurring Jose trujillo DO Work Phone: [facility] [place] Start: 11-02-2024 Registered Recurring Jose Gonzalez ronnie DO Work Phone: [facility] [place] Start: 10-28-2024 End: 10-28-2024 ambulatory Jose Rothronnie DO Work Phone: [facility] Work Phone: Start: 10-28-2024 End: 10-28-2024 Patient encounter procedure Jose Billy DO Work Phone: [facility] Work Phone: Start: 10-12-2024 End: 10-13-2024 Admission to same day surgery center Jose Mariajose DO Work Phone: [facility] [place] Start: 10-12-2024 End: 10-13-2024 ambulatory Jose Rothronnie DO Work Phone: [facility] Work Phone: Start: 10-12-2024 Non-patient / Non-visit Jose Billy DO Work Phone: [facility] Work Phone: Start: 10-07-2024 End: 10-07-2024 ambulatory Jose Rothronnie DO Work Phone: [facility] Work Phone: Start: 10-07-2024 End: 10-07-2024 Patient encounter procedure Jose Billy DO Work Phone: [facility] Work Phone: Start: 09-28-2024 End: 09-28-2024 Patient encounter procedure Jose Billy DO Work Phone: [facility]Pre-Surgical [facility] Work Phone: Start: 09-28-2024 End: 09-28-2024 ambulatory Jose Billy DO Work Phone: [facility] Work Phone: Start: 09-25-2024 End: 09-25-2024 ambulatory Jose Billy DO Work Phone: [facility] Work Phone: Start: 09-25-2024 End: 09-25-2024 Patient encounter procedure Jose Billy DO Work Phone: [facility] Work Phone: Start: 08-28-2024 End: 08-28-2024 ambulatory Jose Billy DO Work Phone: [facility] Work Phone: Start: 08-28-2024 End: 08-28-2024 Discharged Recurring Jose Billy DO Work Phone: [facility] [place] Start: 08-28-2024 Encounter for other preprocedural examination Reji Wesley II [facility] Start: 08-28-2024 Registered Recurring Jose Gonzalez ronnie DO Work Phone: [facility] [place] Start: 08-26-2024 Registered Recurring Jose Gonzalez ronnie DO Work Phone: [facility] [place] Start: 08-26-2024 End: 08-26-2024 ambulatory Jose Billy DO Work Phone: [facility] Work Phone: Start: 08-26-2024 End: 08-26-2024 Patient encounter procedure [facility] Work Phone: Start: 08-24-2024 Registered Recurring Jose Gonzalez ronnie DO Work Phone: [facility] [place] Start: 07-22-2024 End: 07-22-2024 Patient encounter procedure Jose Billy DO Work Phone: [facility] Work Phone: Start: 07-06-2024 Non-patient / Non-visit Jose Billy DO Work Phone: [facility] Work Phone: Start: 07-06-2024 End: 07-07-2024 Admission to same day surgery center Jose Billy DO Work Phone: [facility] [place] Start: 07-06-2024 End: 07-07-2024 ambulatory Jose Billy DO Work Phone: [facility] Work Phone: Start: 06-26-2024 End: 06-26-2024 ambulatory Jose Billy DO Work Phone: [facility] Work Phone: Start: 06-26-2024 End: 06-26-2024 Patient encounter procedure Jose Billy DO Work Phone: [facility] Work Phone: Start: 06-22-2024 End: 06-22-2024 Patient encounter procedure DO Jose Rothronnie Work Phone: [facility] Work Phone: Start: 06-22-2024 Registered Recurring DO Jose Billy Work Phone: [facility] [facility] [place] Start: 06-22-2024 End: 06-22-2024 Patient encounter procedure DO Jose Rothronnie Work Phone: [facility] Start: 06-22-2024 End: 06-22-2024 ambulatory DO Jose Billy Work Phone: [facility] Work Phone: Start: 06-19-2024 End: 06-19-2024 Patient encounter procedure DO Jose Billy Work Phone: [facility] Work Phone: Start: 06-19-2024 End: 06-19-2024 ambulatory DO Jose Billy Work Phone: [facility] Work Phone: Start: 06-19-2024 Encounter for preprocedural laboratory examination Reji Wesley II [facility] Start: 05-26-2024 Preoperative state DO Jose grimes Work Phone: [facility] Start: 05-26-2024 End: 05-26-2024 ambulatory DO Jose Billy Work Phone: [facility] Work Phone: Start: 05-26-2024 End: 05-26-2024 Encounter for other preprocedural examination Jose Billy DO Work Phone: [facility] Start: 05-26-2024 End: 05-26-2024 Patient encounter procedure DO Jose Billy Work Phone: [facility] [place] Work Phone: Start: 05-20-2024 End: 05-20-2024 ambulatory DO Jose Billy Work Phone: [facility] Work Phone: Start: 05-20-2024 End: 05-20-2024 Patient encounter procedure DO Jose Billy Work Phone: [facility] [place] Work Phone: Start: 05-11-2024 End: 05-11-2024 ambulatory DO Jose Billy Work Phone: [facility] Work Phone: Start: 05-11-2024 End: 05-11-2024 Patient encounter procedure [facility] Work Phone: Start: 07-31-2023 End: 07-31-2023 Patient encounter procedure DO Jose Billy Work Phone: [facility] Start: 07-31-2023 End: 07-31-2023 ambulatory DO Jose Billy Work Phone: [facility] Work Phone: Start: 07-31-2023 Office outpatient ne w 45 minutes Reji Wesley II [facility] Start: 05-23-2023 End: 05-23-2023 ambulatory Jose Billy Other [facility] Other Start: 05-23-2023 Office outpatient vi sit 15 minutes Jose Billy [facility] [place] Start: 06-07-2022 End: 06-07-2022 ambulatory Jose Billy Other [facility] Other Start: 06-07-2022 Office outpatient vi sit 15 minutes Jose Billy [facility] [place] Start: 06-04-2022 End: 06-04-2022 ambulatory DO Jose Billy Work Phone: [facility] Work Phone: Start: 06-04-2022 End: 06-04-2022 Patient encounter procedure DO Jose Billy Work Phone: [facility] [place] Start: 02-02-2022 ([facility] C Vac) [facility] Co vid Vaccine Maranda Mcqueen [facility] Start: 02-02-2022 End: 02-02-2022 ambulatory Maranda Mcqueen Other [facility] Other Start: 01-04-2022 End: 01-04-2022 ambulatory Richard Genna Other [facility] Other Start: 01-04-2022 Office outpatient vi sit 15 minutes Richard Genna [facility] Start: 09-27-2021 End: 09-27-2021 ambulatory Richard Genna Other [facility] Other Start: 09-27-2021 Telephone encounter Richard Genna [facility] Start: 09-25-2021 End: 09-25-2021 ambulatory Richard Genna Other [facility] Other Start: 09-25-2021 Office outpatient ne w 45 minutes Richard Genna [facility] Start: 07-27-2021 End: 07-27-2021 ambulatory Jose Billy Other [facility] Other Start: 07-27-2021 Telephone encounter Jose Billy [facility] [place] Start: 07-26-2021 ([facility] C Vac) [facility] Co vid Vaccine Maranda Yanickt [facility] Start: 07-26-2021 End: 07-26-2021 ambulatory Maranda Herndont Other [facility] Other Start: 07-04-2021 End: 07-04-2021 ambulatory Jose Billy Other [facility] Other Start: 07-04-2021 Telephone encounter Jose Billy [facility] [place] Start: 06-06-2021 Office outpatient vi sit 15 minutes Jose Billy [facility] [place] Procedures Date Procedure Procedure Detail Performing Clinician Start: 01-06-2025 Plain X-ray of right femur Jose Billy DO Work Phone: Start: 01-06-2025 Plain X-ray of right tibia and right fibula Jose Billy DO Work Phone: Start: 01-06-2025 X-ray of right knee, two views Jose Billy DO Work Phone: Start: 11-25-2024 X-ray of right knee, three views Jose Billy DO Work Phone: Start: 10-12-2024 Total replacement of right knee joint Jose Billy DO Work Phone: Start: 10-12-2024 X-ray of right knee, two views Jose Billy DO Work Phone: Start: 10-07-2024 Plain X-ray of bilat eral femurs Jose Billy DO Work Phone: Start: 10-07-2024 Plain X-ray of bilat eral tibia and bilateral fibula Jose Billy DO Work Phone: Start: 10-07-2024 X-ray of left knee, two views Jose Billy DO Work Phone: Start: 08-26-2024 X-ray of left knee, three views Jose Billy DO Work Phone: Start: 07-06-2024 X-ray of left knee, two views Jose Billy DO Work Phone: Start: 07-06-2024 Total replacement of left knee joint Jose Billy DO Work Phone: Start: 06-22-2024 Plain X-ray of left femur DO Jose Billy Work Phone: Start: 06-22-2024 Plain X-ray of left tibia and left fibula DO Jose Billy Work Phone: Start: 06-19-2024 Antibody screen Reji Wesley II Comment on above: Order Comment: Date of Surgery: [id number] Result Comment: PERF ORMED BY: [facility] [address] [place] [address] PATHOLOGIST INSPECTOR BOILER JUANCARLOS BAINS M.D. Start: 05-20-2024 Bacteria identified in Urine by Culture DO Jose Billy Work Phone: Start: 05-20-2024 Urine culture Jose trujillo DO Work Phone: Start: 05-11-2024 Methicillin resistan t Staphylococcus aureus culture DO Jose Billy Work Phone: Start: 07-31-2023 Pelvis X-ray DO Jose trujillo Work Phone: Start: 07-31-2023 X-ray of both knees DO Jose Billy Work Phone: Plan of Treatment Date Care Activity Detail Author Start: 11-25-2024 X-ray of right knee, three views XR knee RT 3V - NOT FOR ER USE [facility] Start: 11-25-2024 XR Knee - right 3 Views [facility] Start: 10-13-2024 [facility] Start: 10-12-2024 Hospital admission [facility] Start: 10-12-2024 Referral to occupati onal therapist [facility] Start: 10-12-2024 Referral to clinical environmental management specialist [facility] Start: 10-07-2024 Plain X-ray of bilat eral femurs XR femur [facility] Start: 10-07-2024 Plain X-ray of bilat eral tibia and bilateral fibula XR tibia/fibula [facility] Start: 10-07-2024 XR Femur - bilateral Views [facility] Start: 10-07-2024 XR Tibia and Fibula - bilateral Views [facility] Start: 10-07-2024 X-ray of left knee, two views XR knee LT 2V [facility] Start: 10-07-2024 XR Knee - left 2 Views [facility] Start: 09-28-2024 [facility] Start: 08-26-2024 X-ray of left knee, three views XR knee LT 3V - NOT FOR ER USE [facility] Start: 08-26-2024 XR Knee - left 3 Views [facility] Start: 07-06-2024 Hospital admission [facility] Start: 07-06-2024 [facility] Start: 07-06-2024 Referral to clinical environmental management specialist [facility] Start: 07-06-2024 Referral to occupati onal therapist [facility] Start: 07-06-2024 [facility] Start: 06-19-2024 [facility] Start: 05-20-2024 Bacteria identified in Urine by Culture Urine Culture [facility] Start: 05-20-2024 Urine culture [facility] Start: 05-11-2024 Methicillin resistan t Staphylococcus aureus [Presence] in Unspecified specimen by Organism specific culture [facility] Start: 05-11-2024 [facility] Start: 05-11-2024 MRSA Culture MRSA Culture [facility] Bacteria identified in Urine by Culture [facility] Comprehensive metabo lic 2000 panel - Serum or Plasma [facility] Cotinine [Mass/volum e] in Serum or Plasma [facility] Glucose measurement estimated from glycated hemoglobin [facility] Hemoglobin [Mass/vol ume] in Blood [facility] Nicotine [Mass/volum e] in Serum or Plasma [facility] Patient Education [facility] Work Phone: Patient referral [facility] Work Phone: Urine culture [facility] Immunizations Immunization Date Immunization Notes Care Provider Fa cility 02-02-2022 COVID-19 Pfizer Maranda Fitt Other [facility] 08-10-2021 zoster vaccine recombinant Jose Billy Other [facility] 07-26-2021 COVID-19 Pfizer Maranda Fitt Other [facility] 06-08-2021 zoster vaccine recombinant Jose Billy Other [facility] 01-12-2021 COVID-19 Vaccine Pfi zer - Documentation Purposes Only Jose Billy Other [facility] 12-22-2020 COVID-19 Vaccine Pfi zer - Documentation Purposes Only Jose Billy Other [facility] Payers Date Payer Category Payer Self-pay [id number] 2020 Medicare [id number] 2.1 [id number] 2020 Unknown [id number] 2.1 [id number] Unknown [place] [id number] Unknown [id number] 2.16.8 [id number] Unknown [id number] 2.16.8 [id number] Unknown [id number] 2.16.8 40.1.557688.3.579.2.531 Unknown [id number] 2.16.8 40.1.737851.3.579.2.531 Unknown [id number] 2.16.8 40.1.574330.3.579.2.531 Unknown [id number] 2.16.8 40.1.895587.3.579.2.531 Unknown [id number] 2.16.8 40.1.567303.3.579.2.531 Unknown [id number] 2.16.8 40.1.683216.3.579.2.531 Unknown [id number] 2.16.8 40.1.578041.3.579.2.531 Unknown [id number] 2.16.8 40.1.414750.3.579.2.531 Unknown [id number] 2.16.8 40.1.580914.3.579.2.531 Unknown [id number] 2.16.8 40.1.569193.3.579.2.531 Unknown [id number] 2.16.8 40.1.253488.3.579.2.531 Unknown [id number] 2.16.8 [id number] Social History Date Type Detail Facility Unknown if ever smoked [facility] Other Sex Assigned At Sex Assigned At Bir th [facility] Other Start: 1955 Sex Assigned At Male F [facility] Start: 08-01-2017 End: 10-12-2024 Tobacco smoking status NMIS Never smoked tobacco (finding) [facility] Start: 06-30-2024 End: 01-07-2025 Sex Male (finding) [facility] Start: 10-13-2024 SDOH Follow up SDOH Follow up [facility] Work Phone: Medical Equipment Procedure Code Equipment Code Equipment Origin al Text Equipment Identifier Dates Arthroplasty, knee, total, minimally invasive Tibial insert [id number] FDA Start: 07-06-2024 Arthroplasty, knee, total, minimally invasive Coated knee femur prosthesis ()[id number] FDA Start: 07-06-2024 Arthroplasty, knee, total, minimally invasive Coated knee tibia prosthesis ()[id number] FDA Start: 07-06-2024 Arthroplasty, knee, total, minimally invasive Tibial insert ()[id number] FDA Start: 10-12-2024 Arthroplasty, knee, total, minimally invasive Coated knee femur prosthesis ()[id number] FDA Start: 10-12-2024 Arthroplasty, knee, total, minimally invasive Coated knee tibia prosthesis ()[id number] FDA Start: 10-12-2024 Goals Date Patient Goal Desired Activity /State Functional Status Date Assessment Result Facility 10-13-2024 Functional status Patient is Pro gressing Toward Baseline [facility] Work Phone: 07-07-2024 Functional status Patient at Baseline [facility] Work Phone: Mental Status Date Assessment Result Facility 10-13-2024 Cognitive function Cognitive Sta tus Patient at Baseline [facility] Work Phone: 07-07-2024 Cognitive function Cognitive Sta tus Patient at Baseline [facility] Work Phone: Clinical Notes 06-06-2021 to 10-28-2024 Note Date & Type Note Facility 10-28-2024 Evaluation note Diagnosis Onset Date Resolution Aftercare following right knee joint replacement surgery acute October 28, 2024 9:24am Status post total right knee replacement acute October 28 9:24am Aftercare following right knee joint replacement surgery acute November 25, 9:24am Aftercare following right knee joint replacement surgery acute January 06 12:56pm Status post total right knee replacement acute January 06, 2025 12:56pm [facility] Work Phone: 1(193) 893-591902-25-2025 Progress note Author Reji Wesley [facility] Note Date/Time October 13, 2024 9:30am [facility] [address] [place] [address] Orthopedic Progress Note Signed Patient: Otf Terry MR#: [id number] : 1955 Acct:[id number] Age/Sex: 69 / M Adm Date: 5 Loc: Room: [address] [place] [address] Type: REG SDC Attending Dr: Reji Wesley II, MD Copies to: ~ Date of Service: 10/13/2024 Subjective Subjective Interval History: Patient resting comfortably in bed this morning. Reports he slept well and doesnot have any complaints at this time Nursing reports no acute events overnight. Denies chest pain, shortness of breath, or calf pain. Exam Physical Exam Vital Signs: Temp Pulse Resp BP Pulse Ox O2 Del Method O2 Flow Rate 97.7 F 70 18 153/72 H 94 L Room Air 8 10/13/24 08:00 10/13/24 08:00 10/13/24 08:00 10/13/24 08:00 10/13/24 08:00 10/13/24 08:00 10/12/24 13:17 Narrative: Right knee immobilizer in place. Ice machine on and working. Prevena on and working; no drainage in container. Foot is warm and well perfused. Sensation intact to light touch. Wiggles their toes and ankle up/down. Nontender to palpation to calf. Objective Labs Labs: Laboratory Results - last 24 hr 10/13/24 05:51 Corrected WBC 10.8 H Uncorrected WBC Count 10.8 H RBC 4.56 Hgb 13.4 Hct 38.6 L MCV 84.7 MCH 29.5 MCHC 34.8 RDW 14.7 Plt Count 176 MPV 8.4 Neut % (Auto) 82.2 Lymph % (Auto) 7.8 [place] % (Auto) 9.9 Eos % (Auto) 0.0 Baso % (Auto) 0.1 Nucleat RBC Rel Count 0.1 Neut # (Auto) 8.8 H Lymph # (Auto) 0.8 L [place] # (Auto) 1.1 H Eos # (Auto) 0.0 Baso # (Auto) 0.0 PHA Creatinine Clear 68.55 Sodium 139 Potassium 4.4 Chloride 107 Carbon Dioxide 23.2 Anion Gap 13.2 BUN 18 Creatinine 1.32 H Est GFR (CKD-EPI) 58.387 Glucose 126 H Calcium 8.9 RR INPATIENT [facility] Ambulation: 1 Yes, Ambulation Day of Surgery or 4 hours from PACU discharge [facility] Discharge Exclusion: 2 No Assessment / Plan Assessment and plan (1) Status post total right knee replacement: Code(s): Z96.651 - Presence of right artificial knee joint Plan POD 1 sp R TKA 1. Pain control 2. DVT prophylaxis: NILAM Hose bilaterally, SCDs bilaterally, and aspirin 81 mg twice daily x 35 days postop 3. Perioperative antibiotics with IV Ancef and then 7 days of Duricef 4. PT/OT: WBAT right lower extremity 5. Appreciate hospitalist assistance with medical management 6. PACU x-rays look good 7. Hemoglobin 13.4 this morning 8. Today's Plan: Work with PT/OT 9. Disposition: pending PT/OT eval, but I anticipate he will go home later today with home health physical therapy Documented By: Reji Wesley MD 10/13/24 09 28 Signed By: <Electronically signed by Reji Wesley MD> 10/13/[address] [facility] Work Phone: 1(912) 401-832102-25-2025 [place] [id number] Orth[place] Progress Note Signed Patient: Otf Terry MR#: [id number] : 1955 Acct:[id number] Age/Sex: 69 / M Adm Date: 5 Loc: Room: 9J0055-8 Type: REG FLC Attending Dr: Reji Wesley II, MD Copies to: ~ Date of Service: 10/13/2024 Subjective Subjective Interval History: Patient resting comfortably in bed this morning. Reports he slept well and doesnot have any complaints at this time Nursing reports no acute events overnight. Denies chest pain, shortness of breath, or calf pain. Exam Physical Exam Vital Signs: Temp Pulse Resp BP Pulse Ox O2 Del Method O2 Flow Rate 97.7 F 70 18 153/72 H 94 L Room Air 8 10/13/24 08:00 10/13/24 08:00 10/13/24 08:00 10/13/24 08:00 10/13/24 08:00 10/13/24 08:00 10/12/24 13:17 Narrative: Right knee immobilizer in place. Ice machine on and working. Prevena on and working; no drainage incontainer. Foot is warm and well perfused. Sensation intact to light touch. Wiggles their toes and ankle up/down. Nontender to palpation to calf. Objective Labs Labs: Laboratory Results - last 24 hr 10/13/24 05:51 Corrected WBC 10.8 H Uncorrected WBC Count 10.8 H RBC 4.56 Hgb 13.4 Hct 38.6 L MCV 84.7 MCH 29.5 MCHC 34.8 RDW 14.7 Plt Count 176 MPV 8.4 Neut % (Auto) 82.2 Lymph % (Auto) 7.8 [place] % (Auto) 9.9 Eos % (Auto) 0.0 Baso % (Auto) 0.1 Nucleat RBC Rel Count 0.1 Neut # (Auto) 8.8 H Lymph # (Auto) 0.8 L [place] # (Auto) 1.1 H Eos # (Auto) 0.0 Baso # (Auto) 0.0 PHA Creatinine Clear 68.55 Sodium 139 Potassium 4.4 Chloride 107 Carbon Dioxide 23.2 Anion Gap 13.2 BUN 18 Creatinine 1.32 H Est GFR (CKD-EPI) 58.387 Glucose 126 H Calcium 8.9 AJRR INPATIENT [facility] Ambulation: 1 Yes, Ambulation Day of Surgery or 4 hours from PACU discharge [facility] Discharge Exclusion: 2 No Assessment / Plan Assessment and plan (1) Status post total right knee replacement: Code(s): Z96.651 - Presence of right artificial knee joint Plan POD 1 sp R TKA 1. Pain control 2. DVT prophylaxis: NILAM Hose bilaterally, SCDs bilaterally, and aspirin 81 mg twice daily x 35 dayspostop 3. Perioperative antibiotics with IV Ancef and then 7 days of Duricef 4. PT/OT: WBAT right lower extremity 5. Appreciate hospitalist assistance with medical management 6. PACU x-rays look good 7. Hemoglobin 13.4 this morning 8. Today's Plan: Work with PT/OT 9. Disposition: pending PT/OT eval, but I anticipate he will go home later today with home health physical therapy Documented By: Reji Wesley MD 10/13/2405 16 Signed By: 10/13/24929 [facility]02-24-2025 Consult note Author Arturo Delvalle [facility] Note Date/Time October 12, 2024 4:57pm [facility] [address] [place] [address] Hospitalist Consult Note Signed Patient: Otf Terry MR#: [id number] : 1955 Acct:[id number] Age/Sex: 69 / M Adm Date: 5 Loc: Room: [address] [place] [address] Type: [facility] Attending Dr: Reji Wesley II, MD Copies to: MD Jose Lima DO Robert M Carlisle, MD~ HPI DATE OF CONSULTATION: 10/12/24 REQUESTING PROVIDER: Reji Wesley II Consult Narrative Reason for Consult: Management of chronic medical diseases HPI: This is a 69-year-old male with significant past medical history of hypertensionand sleep apnea admitted for elective right total knee replacement. Patient hasmild pain of the right knee well-controlled with pain medication. Mentions thathe was able to walk to his restroom with minimal pain. Denies any other complaints. Hospital medicine consulted for management of chronic medical diseases. Review of Systems Review of Systems All other systems reviewed & are negative unless noted below or in HPI [facility] Medical History HAMZAH (obstructive sleep apnea) surgically repaired 25 years ago Skin cancer Secondary hyperparathyroidism Chronic kidney disease, stage 3a Restless leg syndrome Primary osteoarthritis of right knee Primary osteoarthritis of left knee Nephrolithiasis Leukopenia Kidney stones Hypertension History of torn meniscus of left knee (2009) Knee scope left / Torn Meniscus/ Dr. Lanza Surgical History Status post total left knee replacement History of vasectomy History of tonsillectomy History of uvulopalatopharyngoplasty Hx of colonoscopy Colonoscopy at age 60 per patient / does not recall who did it 2014 H/O sinus surgery H/O foot surgery (1979) Family History Brother History of stroke Legacy FamHx Relation: Brother(s); Legacy FamHx Problem: Diagnosed with Stroke Father History of heart surgery Heart disease 91 yrs Mother 88 yrs Sister Heart disease Myocardial infarction Sister Cancer Social History Smoking Status: Never smoker Substance Use Type: None Meds Medications and Allergies Allergies No Known Allergies Allergy (Verified 10/12/24 08:15) Home Medications magnesium oxide 400 mg (241.3 mg magnesium) tablet 1 tab PO DAILY 05/11/24 [History Confirmed 10/12/24] multivitamin with minerals-folic acid 80 mcg chewable tablet (Centrum Adult 50 Plus) 1 tab PO QAM 05/11/24 [History Confirmed 10/12/24] turmeric 400 mg capsule 1,600 mg PO BID 05/11/24 [History Confirmed 10/12/24] renafood 1 tab PO BID 06/19/24 [History Confirmed 10/12/24] saw palm 160 mg-vit E 100 unit-selen 100 mno-sdsk-exqice-pygeum tablet (ProstateHealth) 1 tab PO BID 06/19/24 [History Confirmed 09/28/24] symplex m 1 tab PO BID 06/19/24 [History Confirmed 10/12/24] meloxicam 15 mg tablet 15 mg PO daily 30 days #30 tabs 09/01/24 [Rx Confirmed 10/12/24] EZ-Mag 1 tab PO QPM restless leg syndrome 09/28/24 [History Confirmed 10/12/24] aspirin 81 mg tablet,delayed release 81 mg PO QPM 09/28/24 [History Confirmed 10/12/24] diphenhydramine HCl 25 mg capsule (Allergy (diphenhydramine)) 25 mg PO Q8HR PRN allergy symptoms 09/28/24 [History Confirmed 10/12/24] glucosamine-chondroitin 750 mg-600 mg tablet 1 tab PO BID 09/28/24 [History Confirmed 10/12/24] loratadine 10 mg capsule (Allergy Relief (loratadine)) 10 mg PO DAILY PRN allergy symptoms 09/28/24 [History Confirmed 10/12/24] losartan 50 mg tablet 50 mg PO QAM 09/28/24 [History Confirmed 10/12/24] pseudoephedrine HCl 120 mg tablet,extended release (Nasal Decongestant (pseudoephedrine)) 120 mg PO BID PRN nasal congestion 09/28/24 [History Confirmed 10/12/24] acetaminophen 500 mg tablet 1,000 mg (2 x 500 mg) PO Q8H 30 days #180 tabs 10/07/24 [Rx Confirmed 10/07/24] aspirin 81 mg tablet,delayed release 81 mg PO BID 35 days #70 tabs 10/07/24 [Rx Confirmed 10/07/24] cefadroxil 500 mg capsule 500 mg PO Q12H 7 days #14 tabs 10/07/24 [Rx Confirmed 10/07/24] ondansetron HCl 4 mg tablet 4 mg PO Q8H PRN Nausea #9 tabs 10/07/24 [Rx Confirmed 10/07/24] oxycodone 5 mg tablet 5 mg PO Q4H PRN Pain 7 days #42 tabs 10/07/24 [Rx Confirmed 10/07/24] pantoprazole 20 mg tablet,delayed release (Protonix) 20 mg PO daily 35 days #35 tabs 10/07/24 [Rx Confirmed 10/07/24] polyethylene glycol 3350 17 gram/dose oral powder (Miralax) 17 g PO daily 7 days#7 packets 10/07/24 [Rx Confirmed 10/07/24] prednisone 10 mg tablet 10 mg PO daily 10 days #10 tabs 10/07/24 [Rx Confirmed 10/07/24] sennosides 8.6 mg-docusate sodium 50 mg tablet (Senokot-S) 2 tab PO daily 30 days #60 tabs 10/07/24 [Rx Confirmed 10/07/24] tramadol 50 mg tablet 50 mg PO Q6H PRN Pain 10 days #40 tabs 10/07/24 [Rx Confirmed 10/07/24] Active Medications: Active Medications Generic Name Dose Route Start Last Admin Trade Name Aramis PRN Reason Stop Dose Admin Acetaminophen 1,000 mg 10/12/24 14:30 10/12/24 14:50 Acetaminophen 500 Mg Tablet PO 10/12/25 14:29 Not Given Q8H TORO Ascorbic Acid 500 mg 10/12/24 17:00 Ascorbic Acid 500 Mg Tablet PO 10/12/25 16:59 BID.WITH.MEALS TORO Aspirin 81 mg 10/12/24 21:00 Aspirin 81 Mg Tablet. PO 10/12/25 20:59 BID TORO Cefadroxil 500 mg 10/13/24 09:00 Cefadroxil 500 Mg Capsule PO 10/19/24 21:01 BID [facility] Cefazolin Sodium 2 gm 10/12/24 18:30 Cefazolin 2 Gm/11 Ml Syringe IV-PUSH 10/13/24 02:31 Q8H TORO Diphenhydramine HCl 25 mg 10/12/24 14:25 Diphenhydramine 25 Mg Capsule PO 10/12/25 14:24 Q6H PRN Itching Diphenhydramine HCl 25 mg 10/12/24 16:28 Diphenhydramine 25 Mg Capsule PO 10/12/25 16:27 Q8HR PRN allergy symptoms Ferrous Sulfate 324 mg 10/12/24 17:00 Ferrous Sulfate 324 Mg Tablet. PO 10/12/25 16:59 BID.WITH.MEALS [facility] Lactated Ringer's 1,000 mls @ 20 mls/hr 10/12/24 08:07 10/12/24 13:32 Lactated Ringers IV 10/13/24 08:06 20 mls/hr .Q24H ONE Infusion Lactated Ringer's 1,000 mls @ 75 mls/hr 10/12/24 14:30 10/12/24 14:52 Lactated Ringers IV 10/12/25 14:29 Not Given .[id number] [facility] Losartan Potassium 50 mg 10/13/24 09:00 Losartan 50 Mg Tablet PO 10/13/25 08:59 QAM [facility] Magnesium Oxide 400 mg 10/13/24 09:00 Magnesium Oxide 400 Mg Tablet PO 10/13/25 08:59 DAILY TORO Mineral Oil 1 each 10/15/24 14:25 Mineral Oil ([place]) 1 Each Enema MN ONCE PRN Constipation Morphine Sulfate 15 mg 10/12/24 14:25 Morphine Sulfate 12hr Er 15 Mg Tablet.Er PO Q12H PRN Pain Naloxone HCl 0.4 mg 10/12/24 14:25 Naloxone Hcl 0.4 Mg/Ml Vial IV-PUSH 10/12/25 14:24 Q2M PRN Opioid Reversal Non-Formulary Medication 1 tab 10/12/24 21:00 Ez-Mag PO 10/12/25 20:59 QPM TORO Non-Formulary Medication 1 tab 10/12/24 21:00 Glucosamine-Chondroitin PO 10/12/25 20:59 BID [facility] Non-Formulary Medication 10 mg 10/12/24 16:28 Loratadine [Allergy Relief (Loratadine)] PO DAILY PRN allergy symptoms Non-Formulary Medication 1 tab 10/13/24 09:00 Multivit With Min-Folic Acid [Centrum Adult 50 Plus] PO 10/13/25 08:59 QAM [facility] Non-Formulary Medication 1 tab 10/12/24 21:00 Renafood PO 10/12/25 20:59 BID [facility] Non-Formulary Medication 1,600 mg 10/12/24 21:00 Turmeric PO 10/12/25 20:59 BID [facility] Non-Formulary Medication 1 tab 10/12/24 21:00 Symplex M PO 10/12/25 20:59 BID [facility] Non-Formulary Medication 1 tab 10/12/24 21:00 Saw-Vit E-Sod Dmu-Ilg-Lemk-Pyg [Prostate Health] PO 10/12/25 20:59 BID [facility] Ondansetron HCl 8 mg 10/12/24 14:25 Ondansetron Odt 4 Mg Tab.Rapdis PO 10/12/25 14:24 TID PRN Nausea Oxycodone HCl 5 mg 10/12/24 14:25 Oxycodone Ir 5 Mg Tablet PO Q4HR PRN Pain Scale 6 - 10 Pantoprazole Sodium 40 mg 10/13/24 09:00 Pantoprazole 40 Mg Tablet. PO 11/11/24 09:01 DAILY [facility] Polyethylene Glycol 17 gm 10/13/24 09:00 Polyethylene Glycol 3350 17 Gm Powd.Pack PO 10/20/24 08:59 DAILY TORO Prednisone 10 mg 10/13/24 09:00 Prednisone 10 Mg Tablet PO 11/11/24 09:01 DAILY TORO Prochlorperazine Maleate 10 mg 10/12/24 14:25 Prochlorperazine Maleate 5 Mg Tablet PO 10/12/25 14:24 Q6H PRN Nausea Senna/Docusate Sodium 2 tab 10/13/24 09:00 Sennosides/Docusate 8.6-50mg 1 Tab Tablet PO 11/12/24 08:59 DAILY TORO Sodium Chloride 0 ml 10/12/24 08:07 Sodium Chloride 0.9 % 10 Ml Syringe IV-PUSH 10/12/25 08:06 PRN PRN Flush Sodium Chloride 0 ml 10/12/24 08:07 Sodium Chloride 0.9 % 10 Ml Syringe IV-PUSH 10/12/25 08:06 PRN PRN Flush Sodium Chloride 0 ml 10/12/24 22:00 Sodium Chloride 0.9 % 10 Ml Syringe IV-PUSH 10/12/25 21:59 QSHIFT TORO Temazepam 7.5 mg 10/12/24 14:25 Temazepam 7.5 Mg Capsule PO 04/10/25 14:24 QHS PRN Insomnia Tramadol HCl 50 mg 10/12/24 14:25 Tramadol 50 Mg Tablet PO 04/10/25 14:24 Q6H PRN Pain Scale 1 - 5 Exam Physical Exam Vital Signs: Temp Pulse Resp BP Pulse Ox O2 Del Method O2 Flow Rate 97.3 F L 86 18 126/79 95 Room Air 8 10/12/24 14:00 10/12/24 14:00 10/12/24 14:00 10/12/24 14:00 10/12/24 14:00 10/12/24 16:20 10/12/24 13:17 Narrative: General: Awake alert, no acute distress HEENT: head atraumatic, normocephalic, moist mucous membranes Neck: supple no masses, no lymphadenopathy CVS: regular rate and rhythm, no murmurs or gallops Respiratory: clear to auscultation bilaterally, no wheezing or crackles, symmetric expansion GI: soft, nondistended, nontender, positive bowel sounds with no organomegaly Extremity: moves all extremities, no restrictions of movements, no calf tenderness, mild tenderness and swelling in the right knee with restriction Neuro: AOx3, CN II-VII intact. Moves all extremities in all planes of motion. 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 Patient hasmild pain of the right knee well-controlled with pain medication. Mentions thathe was able to walk to his restroom with minimal pain. Denies any other complaints. Hospital medicine consulted for management of chronic medical diseases. Plan: -Continue on pain medication as needed -On aspirin twice daily for DVT prophylaxis -Continue on antibiotics as per the surgeon -Continue on POA medication-Benadryl, magnesium, iron pills, glucosamine/chondroitin, losartan, multivitamin, turmeric. -Continue on bowel regimen -PT OT on consult Documented By: Arturo Delvalle MD 10/12/241651 Signed By: <Electronically signed by Arturo Delvalle MD> 10/12/24 1657 [facility] Work Phone: 1(269) 104-475102-24-2025 [place] [address] Hospitalist Consult Note Signed Patient: Otf Terry MR#: [id number] : 1955 Acct:[id number] Age/Sex: 69 / M Adm Date: 5 Loc: Room: [address] [place] [address] Type: REG SDC Attending Dr: Reji Wesley II, MD Copies to: MD Jose Lima DO Robert M Carlisle, MD~ HPI DATE OF CONSULTATION: 10/12/24 REQUESTING PROVIDER: Reji Wesley II Consult Narrative Reason for Consult: Management of chronic medical diseases HPI: This is a 69-year-old male with significant past medical history of hypertensionand sleep apnea admitted for elective right total knee replacement. Patient hasmild pain of the right knee well-controlled with pain medication. Mentions thathe was able to walk to his restroom with minimal pain. Deniesany other complaints. Hospital medicine consulted for management of chronic medical diseases. Review of Systems Review of Systems All other systems reviewed & are negative unless noted below or in HPI [facility] Medical History HAMZAH (obstructive sleep apnea) surgically repaired 25 years ago Skin cancer Secondary hyperparathyroidism Chronic kidney disease, stage 3a Restless leg syndrome Primary osteoarthritis of right knee Primary osteoarthritis of left knee Nephrolithiasis Leukopenia Kidney stones Hypertension History of torn meniscus of left knee (2009) Knee scope left / Torn Meniscus/ Dr. Lanza Surgical History Status post total left knee replacement History of vasectomy History of tonsillectomy History of uvulopalatopharyngoplasty Hx of colonoscopy Colonoscopy at age 60 per patient / does not recall who did it 2014 H/O sinus surgery H/O foot surgery (1979) Family History Brother History of stroke Legacy FamHx Relation: Brother(s); Legacy FamHx Problem: Diagnosed with Stroke Father History of heart surgery Heart disease 91 yrs Mother 88 yrs Sister Heart disease Myocardial infarction Sister Cancer Social History Smoking Status: Never smoker Substance Use Type: None Meds Medications and Allergies Allergies No Known Allergies Allergy (Verified 10/12/24 08:15) Home Medications magnesium oxide 400 mg (241.3 mg magnesium) tablet 1 tab PO DAILY 05/11/24 [History Confirmed 10/12/24] multivitamin with minerals-folic acid 80 mcg chewable tablet (Centrum Adult 50 Plus) 1 tab PO QAM 05/11/24 [History Confirmed 10/12/24] turmeric 400 mg capsule 1,600 mg PO BID 05/11/24 [History Confirmed 10/12/24] renafood 1 tab PO BID 06/19/24 [History Confirmed 10/12/24] saw palm 160 mg-vit E 100 unit-selen 100 oay-qbtd-ucfepd-pygeum tablet (ProstateHealth) 1 tab PO BID 06/19/24 [History Confirmed 09/28/24] symplex m 1 tab PO BID 06/19/24 [History Confirmed 10/12/24] meloxicam 15 mg tablet 15 mg PO daily 30 days #30 tabs 09/01/24 [Rx Confirmed 10/12/24] EZ-Mag 1 tab PO QPM restless leg syndrome 09/28/24 [History Confirmed 10/12/24] aspirin 81 mg tablet,delayed release 81 mg PO QPM 09/28/24 [History Confirmed 10/12/24] diphenhydramine HCl 25 mg capsule (Allergy (diphenhydramine)) 25 mg PO Q8HR PRN allergy symptoms 09/28/24 [History Confirmed 10/12/24] glucosamine-chondroitin 750 mg-600 mg tablet 1 tab PO BID 09/28/24 [History Confirmed 10/12/24] loratadine 10 mg capsule (Allergy Relief (loratadine)) 10 mg PO DAILY PRN allergy symptoms 09/28/24[History Confirmed 10/12/24] losartan 50 mg tablet 50 mg PO QAM 09/28/24 [History Confirmed 10/12/24] pseudoephedrine HCl 120 mg tablet,extended release (Nasal Decongestant (pseudoephedrine)) 120 mg POBID PRN nasal congestion 09/28/24 [History Confirmed 10/12/24] acetaminophen 500 mg tablet 1,000 mg (2 x 500 mg) PO Q8H 30 days #180 tabs 10/07/24 [Rx Confirmed 10/07/24] aspirin 81 mg tablet,delayed release 81 mg PO BID 35 days #70 tabs 10/07/24 [Rx Confirmed 10/07/24] cefadroxil 500 mg capsule 500 mg PO Q12H 7 days #14 tabs 10/07/24 [Rx Confirmed 10/07/24] ondansetron HCl 4 mg tablet 4 mg PO Q8H PRN Nausea #9 tabs 10/07/24 [Rx Confirmed 10/07/24] oxycodone 5 mg tablet 5 mg PO Q4H PRN Pain 7 days #42 tabs 10/07/24 [Rx Confirmed 10/07/24] pantoprazole 20 mg tablet,delayed release (Protonix) 20 mg PO daily 35 days #35 tabs 10/07/24 [Rx Confirmed 10/07/24] polyethylene glycol 3350 17 gram/dose oral powder (Miralax) 17 g PO daily 7 days#7 packets 10/07/24[Rx Confirmed 10/07/24] prednisone 10 mg tablet 10 mg PO daily 10 days #10 tabs 10/07/24 [Rx Confirmed 10/07/24] sennosides 8.6 mg-docusate sodium 50 mg tablet (Senokot-S) 2 tab PO daily 30 days #60 tabs 10/07/24[Rx Confirmed 10/07/24] tramadol 50 mg tablet 50 mg PO Q6H PRN Pain 10 days #40 tabs 10/07/24 [Rx Confirmed 10/07/24] Active Medications: Active Medications Generic Name Dose Route Start Last Admin Trade Name Freq PRN Reason Stop Dose Admin Acetaminophen 1,000 mg 10/12/24 14:30 10/12/24 14:50 Acetaminophen 500 Mg Tablet PO 10/12/25 14:29 Not Given Q8H TORO Ascorbic Acid 500 mg 10/12/24 17:00 Ascorbic Acid 500 Mg Tablet PO 10/12/25 16:59 BID.WITH.MEALS TORO Aspirin 81 mg 10/12/24 21:00 Aspirin 81 Mg Tablet. PO 10/12/25 20:59 BID TORO Cefadroxil 500 mg 10/13/24 09:00 Cefadroxil 500 Mg Capsule PO 10/19/24 21:01 BID TORO Cefazolin Sodium 2 gm 10/12/24 18:30 Cefazolin 2 Gm/11 Ml Syringe IV-PUSH 10/13/24 02:31 Q8H TORO Diphenhydramine HCl 25 mg 10/12/24 14:25 Diphenhydramine 25 Mg Capsule PO 10/12/25 14:24 Q6H PRN Itching Diphenhydramine HCl 25 mg 10/12/24 16:28 Diphenhydramine 25 Mg Capsule PO 10/12/25 16:27 Q8HR PRN allergy symptoms Ferrous Sulfate 324 mg 10/12/24 17:00 Ferrous Sulfate 324 Mg Tablet. PO 10/12/25 16:59 BID.WITH.MEALS TORO Lactated Ringer's 1,000 mls @ 20 mls/hr 10/12/24 08:07 10/12/24 13:32 Lactated Ringers IV 10/13/24 08:06 20 mls/hr .Q24H ONE Infusion Lactated Ringer's 1,000 mls @ 75 mls/hr 10/12/24 14:30 10/12/24 14:52 Lactated Ringers IV 10/12/25 14:29 Not Given .[id number] [facility] Losartan Potassium 50 mg 10/13/24 09:00 Losartan 50 Mg Tablet PO 10/13/25 08:59 QAM [facility] Magnesium Oxide 400 mg 10/13/24 09:00 Magnesium Oxide 400 Mg Tablet PO 10/13/25 08:59 DAILY [facility] Mineral Oil 1 each 10/15/24 14:25 Mineral Oil ([place]) 1 Each Enema MN ONCE PRN Constipation Morphine Sulfate 15 mg 10/12/24 14:25 Morphine Sulfate 12hr Er 15 Mg Tablet.Er PO Q12H PRN Pain Naloxone HCl 0.4 mg 10/12/24 14:25 Naloxone Hcl 0.4 Mg/Ml Vial IV-PUSH 10/12/25 14:24 Q2M PRN Opioid Reversal Non-Formulary Medication 1 tab 10/12/24 21:00 Ez-Mag PO 10/12/25 20:59 QPM [facility] Non-Formulary Medication 1 tab 10/12/24 21:00 Glucosamine-Chondroitin PO 10/12/25 20:59 BID [facility] Non-Formulary Medication 10 mg 10/12/24 16:28 Loratadine [Allergy Relief (Loratadine)] PO DAILY PRN allergy symptoms Non-Formulary Medication 1 tab 10/13/24 09:00 Multivit With Min-Folic Acid [Centrum Adult 50 Plus] PO 10/13/25 08:59 QAM [facility] Non-Formulary Medication 1 tab 10/12/24 21:00 Renafood PO 10/12/25 20:59 BID [facility] Non-Formulary Medication 1,600 mg 10/12/24 21:00 Turmeric PO 10/12/25 20:59 BID [facility] Non-Formulary Medication 1 tab 10/12/24 21:00 Symplex M PO 10/12/25 20:59 BID [facility] Non-Formulary Medication 1 tab 10/12/24 21:00 Saw-Vit E-Sod Vde-Kju-Ljtt-Pyg [Prostate Health] PO 10/12/25 20:59 BID [facility] Ondansetron HCl 8 mg 10/12/24 14:25 Ondansetron Odt 4 Mg Tab.Rapdis PO 10/12/25 14:24 TID PRN Nausea Oxycodone HCl 5 mg 10/12/24 14:25 Oxycodone Ir 5 Mg Tablet PO Q4HR PRN Pain Scale 6 - 10 Pantoprazole Sodium 40 mg 10/13/24 09:00 Pantoprazole 40 Mg Tablet. PO 11/11/24 09:01 DAILY [facility] Polyethylene Glycol 17 gm 10/13/24 09:00 Polyethylene Glycol 3350 17 Gm Powd.Pack PO 10/20/24 08:59 DAILY TORO Prednisone 10 mg 10/13/24 09:00 Prednisone 10 Mg Tablet PO 11/11/24 09:01 DAILY TORO Prochlorperazine Maleate 10 mg 10/12/24 14:25 Prochlorperazine Maleate 5 Mg Tablet PO 10/12/25 14:24 Q6H PRN Nausea Senna/Docusate Sodium 2 tab 10/13/24 09:00 Sennosides/Docusate 8.6-50mg 1 Tab Tablet PO 11/12/24 08:59 DAILY [facility] Sodium Chloride 0 ml 10/12/24 08:07 Sodium Chloride 0.9 % 10 Ml Syringe IV-PUSH 10/12/25 08:06 PRN PRN Flush Sodium Chloride 0 ml 10/12/24 08:07 Sodium Chloride 0.9 % 10 Ml Syringe IV-PUSH 10/12/25 08:06 PRN PRN Flush Sodium Chloride 0 ml 10/12/24 22:00 Sodium Chloride 0.9 % 10 Ml Syringe IV-PUSH 10/12/25 21:59 QSHIFT TORO Temazepam 7.5 mg 10/12/24 14:25 Temazepam 7.5 Mg Capsule PO 04/10/25 14:24 QHS PRN Insomnia Tramadol HCl 50 mg 10/12/24 14:25 Tramadol 50 Mg Tablet PO 04/10/25 14:24 Q6H PRN Pain Scale 1 - 5 Exam Physical Exam Vital Signs: Temp Pulse Resp BP Pulse Ox O2 Del Method O2 Flow Rate 97.3 F L 86 18 126/79 95 Room Air 8 10/12/24 14:00 10/12/24 14:00 10/12/24 14:00 10/12/24 14:00 10/12/24 14:00 10/12/24 16:20 10/12/24 13:17 Narrative: General: Awake alert, no acute distress HEENT: head atraumatic, normocephalic, moist mucous membranes Neck: supple no masses, no lymphadenopathy CVS: regular rate and rhythm, no murmurs or gallops Respiratory: clear to auscultation bilaterally, no wheezing or crackles, symmetric expansion GI: soft, nondistended, nontender, positive bowel sounds with no organomegaly Extremity: moves all extremities, no restrictions of movements, no calf tenderness, mild tendernessand swelling in the right knee with restriction Neuro: AOx3, CN II-VII intact. Moves all extremities in all planes of motion. 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 Patient hasmild pain of the right knee well-controlled with pain medication. Mentions thathe was able to walk to his restroom with minimal pain. Deniesany other complaints. Hospital medicine consulted for management of chronic medical diseases. Plan: -Continue on pain medication as needed -On aspirin twice daily for DVT prophylaxis -Continue on antibiotics as per the surgeon -Continue on POA medication-Benadryl, magnesium, iron pills, glucosamine/chondroitin, losartan, multivitamin, turmeric. 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 acute October 12 8:00am Primary osteoarthritis of ri ght knee acute October 12 025 8:00am Status post total right knee replacement acute October 12 025 8:00am Aftercare following right kn ee joint replacement surgery acute October 28, 2024 9:24am Status post total right knee replacement acute October 28, 2024 9:24am Aftercare following right kn ee joint replacement surgery acute November 25, 2024 9:24am [facility] Work Phone: 1([phone]) 411-672601-08-2025 Evaluation note* Diagnosis Onset Date Resolution Status Admit Date Aftercare following left kne e joint replacement surgery acute 2024 11:38am Primary osteoarthritis of ri ght knee acute August 26 11:38am Status post total left knee replacement acute August 26 11:38am Aftercare following left kne e joint replacement surgery acute 2024 8:38am Primary osteoarthritis of ri ght knee acute October 07, 025 8:38am Age related osteoporosis acute October 12, 2024 8:00am Hyperlipidemia acute September 202024 8:00am Hypertension acute September 8:00am 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 acute October 12, 025 8:00am Primary osteoarthritis of ri ght knee acute October 12 8:00am Status post total right knee replacement acute October 12 8:00am Aftercare following right kn ee joint replacement surgery acute October 28, 2024 9:24am Status post total right knee replacement acute October 28, 2024 9:24am [facility] Work Phone: 1(341) 684-999212-04-2024 Evaluation note* Diagnosis Onset Date Resolution Status Admit Date Aftercare following left kne e joint replacement surgery acute Dece er 2023 12:32pm Status post total left knee replacement acute July 22 12:32pm Aftercare following left kne e joint replacement surgery acute 2024 11:38am Primary osteoarthritis of ri ght knee acute August 26 11:38am Status post total left knee replacement acute August 26 11:38am Aftercare following left kne e joint replacement surgery acute 2024 8:38am Primary osteoarthritis of ri ght knee acute October 07 8:38am [facility] Work Phone: [phone] 959-950012-04-2024 Evaluation note* Diagnosis Onset Date Resolution Status Admit Date Aftercare following left kne e joint replacement surgery acute Decemb er 2023 12:32pm Status post total left knee replacement acute July 22 12:32pm Aftercare following left kne e joint replacement surgery acute 2024 11:38am Primary osteoarthritis of ri ght knee acute August 26 11:38am Status post total left knee replacement acute August 26 11:38am Aftercare following left kne e joint replacement surgery acute 2024 8:38am Primary osteoarthritis of ri ght knee acute October 07, 025 8:38am Age related osteoporosis acute October 12, 2024 8:00am Hyperlipidemia acute September 202024 8:00am Hypertension acute September 8:00am Other alf current drug therapy acute October 12 025 8:00am Primary osteoarthritis of ri ght knee acute October 12 025 8:00am Status post total right knee replacement acute October 12 8:00am [facility] Work Phone: 1(108) 367-678811-19-2024 Progress note Author Reji Wesley [facility] Note Date/Time July 07, 2024 7:58am [facility] [address] [place] [address] Orthopedic Progress Note Signed Patient: Otf Terry MR#: [id number] : 1955 Acct:[id number] Age/Sex: 69 / M Adm Date: 4 Loc: Room: [address] [place] [address] Type: [facility] Attending Dr: Reji Wesley II, MD Copies to: ~ Date of Service: 07/07/2024 Subjective Subjective Interval History: Patient resting comfortably in bed this morning. Patient reports some pain overnight. Nursing reports no acute events overnight. Denies chest pain, shortness of breath, or calf pain. Exam Physical Exam Vital Signs: Temp Pulse Resp BP Pulse Ox O2 Del Method O2 Flow Rate 98.8 F 63 16 168/81 H 96 Room Air 8 07/07/24 07:47 07/07/24 07:47 07/07/24 07:47 07/07/24 07:47 07/07/24 07:47 07/07/24 07:47 07/06/24 10:20 Narrative: Left knee immobilizer in place. Ice machine on and working. Prevena on and working; no drainage in container. Foot is warm and well perfused. Sensation intact to light touch. Wiggles their toes and ankle up/down. Nontender to palpation to calf. Objective Labs Labs: Laboratory Results - last 24 hr 07/07/24 04:49 Corrected WBC 6.6 Uncorrected WBC Count 6.6 RBC 4.38 Hgb 12.9 L Hct 37.8 L MCV 86.2 MCH 29.4 MCHC 34.1 RDW 14.3 Plt Count 150 MPV 8.8 Neut % (Auto) 73.6 Lymph % (Auto) 12.4 [place] % (Auto) 13.1 Eos % (Auto) 0.7 Baso % (Auto) 0.2 Nucleat RBC Rel Count 0.0 Neut # (Auto) 4.9 Lymph # (Auto) 0.8 L [place] # (Auto) 0.9 H Eos # (Auto) 0.0 Baso # (Auto) 0.0 PHA Creatinine Clear 73.89 Sodium 133 L Potassium 4.4 Chloride 101 Carbon Dioxide 26.8 Anion Gap 9.6 BUN 12 Creatinine 1.20 Est GFR (CKD-EPI) > 60.0 Glucose 128 H Calcium 8.4 L RR INPATIENT [facility] Ambulation: 1 Yes, Ambulation Day of Surgery or 4 hours from PACU discharge [facility] Discharge Exclusion: 2 No Assessment / Plan Assessment and plan (1) Status post total left knee replacement: Code(s): Z96.652 - Presence of left artificial knee joint Plan POD 1 sp L TKA 1. Pain control 2. DVT prophylaxis: NILAM Hose bilaterally, SCDs bilaterally, and aspirin 81 mg twice daily x 35 days postop 3. Perioperative antibiotics with IV Ancef and then 7 days of Duricef 4. PT/OT: WBAT left lower extremity 5. Appreciate hospitalist assistance with medical management 6. PACU x-rays look good 7. Hemoglobin 12.9 this morning. Continue iron and vitamin C 8. Today's Plan: Work with PT/OT 9. Disposition: pending PT/OT eval, but I expect him to go home today with homehealth physical therapy Documented By: Reji Wesley MD 07/07/24 07 55 Signed By: <Electronically signed by Reji Wesley MD> 07/07/[address] [facility] Work Phone: 1(112) 907-246811-19-2024 [place] [address] Orthopedic Progress Note Signed Patient: Otf Terry MR#: [id number] : 1955 Acct:[id number] Age/Sex: 69 / M Adm Date: 4 Loc: 4N Room: [address] [place] [address] Type: REG SDC Attending Dr: Reji Wesley II, MD Copies to: ~ Date of Service: 07/07/2024 Subjective Subjective Interval History: Patient resting comfortably in bed this morning. Patient reports some pain overnight. Nursing reports no acute events overnight. Denies chest pain, shortness of breath, or calf pain. Exam Physical Exam Vital Signs: Temp Pulse Resp BP Pulse Ox O2 Del Method O2 Flow Rate 98.8 F 63 16 168/81 H 96 Room Air 8 07/07/24 07:47 07/07/24 07:47 07/07/24 07:47 07/07/24 07:47 07/07/24 07:47 07/07/24 07:47 07/06/24 10:20 Narrative: Left knee immobilizer in place. Ice machine on and working. Prevena on and working; no drainage in container. Foot is warm and well perfused. Sensation intact to light touch. Wiggles their toes and ankle up/down. Nontender to palpation to calf. Objective Labs Labs: Laboratory Results - last 24 hr 07/07/24 04:49 Corrected WBC 6.6 Uncorrected WBC Count 6.6 RBC 4.38 Hgb 12.9 L Hct 37.8 L MCV 86.2 MCH 29.4 MCHC 34.1 RDW 14.3 Plt Count 150 MPV 8.8 Neut % (Auto) 73.6 Lymph % (Auto) 12.4 [place] % (Auto) 13.1 Eos % (Auto) 0.7 Baso % (Auto) 0.2 Nucleat RBC Rel Count 0.0 Neut # (Auto) 4.9 Lymph # (Auto) 0.8 L [place] # (Auto) 0.9 H Eos # (Auto) 0.0 Baso # (Auto) 0.0 PHA Creatinine Clear 73.89 Sodium 133 L Potassium 4.4 Chloride 101 Carbon Dioxide 26.8 Anion Gap 9.6 BUN 12 Creatinine 1.20 Est GFR (CKD-EPI) > 60.0 Glucose 128 H Calcium 8.4 L AJRR INPATIENT [facility] Ambulation: 1 Yes, Ambulation Day of Surgery or 4 hours from PACU discharge [facility] Discharge Exclusion: 2 No Assessment / Plan Assessment and plan (1) Status post total left knee replacement: Code(s): Z96.652 - Presence of left artificial knee joint Plan POD 1 sp L TKA 1. Pain control 2. DVT prophylaxis: NILAM Hose bilaterally, SCDs bilaterally, and aspirin 81 mg twice daily x 35 dayspostop 3. Perioperative antibiotics with IV Ancef and then 7 days of Duricef 4. PT/OT: WBAT left lower extremity 5. Appreciate hospitalist assistance with medical management 6. PACU x-rays look good 7. Hemoglobin 12.9 this morning. Continue iron and vitamin C 8. Today's Plan: Work with PT/OT 9. Disposition: pending PT/OT eval, but I expect him to go home today with homehealth physical therapy Documented By: Reji Wesley MD 07/07/24 07 55 Signed By: 07/07/24 0758 [facility]11-18-2024 Consult note Author Moncho Hilotn [facility] Note Date/Time July 06, 2024 9:28pm [facility] [address] [place] [address] Hospitalist Consult Note Signed Patient: Otf Terry MR#: [id number] : 1955 Acct:[id number] Age/Sex: 69 / M Adm Date: 4 Loc: 4N Room: 3M4467-9 Type: REG [facility] Attending Dr: Reji Wesley II, MD Copies to: DO Moncho Burt, DO Reji Wesley MD~ HPI DATE OF CONSULTATION: 07/06/24 REQUESTING PROVIDER: Reji Wesley II Consult Narrative Reason for Consult: Hypertension HPI: This patient is a 69-year-old male being seen postoperatively on the MedSur floor following a left-sided total knee arthroplasty performed with orthopedic surgery earlier this afternoon. Hospitalist services consulted for medical management including for chronic hypertension. Most recently his vital signs are all relatively stable with some high normal blood pressure 151/87 mmHg and low normal heart rate at 54 bpm. He has no hemodynamic or respiratory compromise otherwise. Physical Examination: GENERAL APPEARANCE: Alert, up in bed AAOx3 HEENT: NCAT, MMM NECK: Neck soft w/o masses, no JVD CARDIAC: Normal S1 and S2. No S3, S4 or murmurs. LUNGS: Clear to auscultation bilaterally. no wheeze/rhonchi/rales ABDOMEN: Positive bowel sounds. Soft, nontender. No guarding or signs of an acute abdomen EXTREMITIES: No clubbing, cyanosis or edema NEUROLOGICAL: No focal deficits SKIN: Skin normal color, texture and turgor with no lesions or eruptions. PSYCHIATRIC: Appropriate mood and affect Assessment and plan: 1. Hypertension 2. Chronic kidney disease stage IIIa 3. Restless leg syndrome 4. Osteoarthritis 5. History of kidney stones I have completed the Herculean task of resuming the patient's daily losartan 50 mg. Little else to offer medically. Will sign off. Please call or reconsult with any medical issues. Review of Systems Review of Systems All other systems reviewed & are negative unless noted below or in HPI [facility] Medical History HAMZAH (obstructive sleep apnea) Skin cancer Secondary hyperparathyroidism Chronic kidney disease, stage 3a Restless leg syndrome Primary osteoarthritis of right knee Primary osteoarthritis of left knee Nephrolithiasis Leukopenia Kidney stones Hypertension History of torn meniscus of left knee (2009) Knee scope left / Torn Meniscus/ Dr. Lanza Surgical History History of vasectomy History of tonsillectomy History of uvulopalatopharyngoplasty Hx of colonoscopy Colonoscopy at age 60 per patient / does not recall who did it 2014 H/O sinus surgery H/O foot surgery (1979) Family History Brother History of stroke Legacy FamHx Relation: Brother(s); Legacy FamHx Problem: Diagnosed with Stroke Father Heart disease 91 yrs History of heart surgery Mother 88 yrs Sister Heart disease Myocardial infarction Sister Cancer Social History Smoking Status: Never smoker Substance Use Type: None Meds Medications and Allergies Allergies No Known Allergies Allergy (Verified 06/19/24 08:23) Home Medications aspirin 81 mg chewable tablet 81 mg PO QPM 05/11/24 [History Confirmed 07/06/24] glucosamine HCl 500 mg tablet 500 mg PO BID 05/11/24 [History Confirmed 06/19/24] magnesium oxide 400 mg (241.3 mg magnesium) tablet 1 tab PO BID 05/11/24 [History Confirmed 06/22/24] multivitamin with minerals-folic acid 80 mcg chewable tablet (Centrum Adult 50 Plus) 1 tab PO QAM 05/11/24 [History Confirmed 06/22/24] turmeric 400 mg capsule 1,600 mg PO BID 05/11/24 [History Confirmed 06/22/24] losartan 50 mg tablet 50 mg PO QAM 06/19/24 [History Confirmed 07/06/24] meloxicam 15 mg tablet 15 mg PO QAM 06/19/24 [History Confirmed 07/06/24] renafood 1 tab PO BID 06/19/24 [History Confirmed 06/22/24] saw palm 160 mg-vit E 100 unit-selen 100 ydw-dzhm-dhxmfq-pygeum tablet (ProstateHealth) 1 tab PO BID 06/19/24 [History Confirmed 06/22/24] symplex m 1 tab PO BID 06/19/24 [History Confirmed 06/22/24] acetaminophen 500 mg tablet 1,000 mg (2 x 500 mg) PO Q8H 30 days #180 tabs 06/22/24 [Rx Confirmed 06/22/24] aspirin 81 mg tablet,delayed release 81 mg PO BID 35 days #70 tabs 06/22/24 [Rx Confirmed 06/22/24] cefadroxil 500 mg capsule 500 mg PO Q12H 7 days #14 tabs 06/22/24 [Rx Confirmed 06/22/24] ondansetron HCl 4 mg tablet 4 mg PO Q8H PRN Nausea #9 tabs 06/22/24 [Rx Confirmed 06/22/24] oxycodone 5 mg tablet 5 mg PO Q4H PRN Pain 7 days #42 tabs 06/22/24 [Rx Confirmed 06/22/24] pantoprazole 20 mg tablet,delayed release (Protonix) 20 mg PO daily 35 days #35 tabs 06/22/24 [Rx Confirmed 06/22/24] polyethylene glycol 3350 17 gram/dose oral powder (Miralax) 17 g PO daily 7 days#7 packets 06/22/24 [Rx Confirmed 06/22/24] prednisone 10 mg tablet 10 mg PO daily 10 days #10 tabs 06/22/24 [Rx Confirmed 06/22/24] sennosides 8.6 mg-docusate sodium 50 mg tablet (Senokot-S) 2 tab PO daily 30 days #60 tabs 06/22/24 [Rx Confirmed 06/22/24] tramadol 50 mg tablet 50 mg PO q6h PRN Pain 7 days #28 tabs 06/22/24 [Rx Confirmed 06/22/24] Active Medications: Active Medications Generic Name Dose Route Start Last Admin Trade Name Freq PRN Reason Stop Dose Admin Acetaminophen 1,000 mg 07/06/24 16:00 Acetaminophen 500 Mg Tablet PO 07/06/25 15:59 Q8H TORO Ascorbic Acid 500 mg 07/06/24 17:00 Ascorbic Acid 500 Mg Tablet PO 07/06/25 16:59 BID.WITH.MEALS TORO Aspirin 81 mg 07/06/24 21:00 Aspirin 81 Mg Tablet. PO 07/06/25 20:59 BID [facility] Cefadroxil 500 mg 07/07/24 09:00 Cefadroxil 500 Mg Capsule PO 07/13/24 21:01 BID [facility] Cefazolin Sodium 2 gm 07/06/24 16:00 Cefazolin 2 Gm/11 Ml Syringe IV-PUSH 07/07/24 00:01 Q8H TORO Diphenhydramine HCl 25 mg 07/06/24 15:31 Diphenhydramine 25 Mg Capsule PO 07/06/25 15:30 Q6H PRN Itching Ferrous Sulfate 324 mg 07/06/24 17:00 Ferrous Sulfate 324 Mg Tablet. PO 07/06/25 16:59 BID.WITH.MEALS TORO Lactated Ringer's 1,000 mls @ 20 mls/hr 07/06/24 05:44 07/06/24 10:31 Lactated Ringers IV 07/07/24 05:43 20 mls/hr .Q24H ONE Infusion Lactated Ringer's 1,000 mls @ 75 mls/hr 07/06/24 15:45 Lactated Ringers IV 07/07/24 05:04 .[id number] ONE Mineral Oil 1 each 07/09/24 15:31 Mineral Oil ([place]) 1 Each Enema MN ONCE PRN Constipation Morphine Sulfate 15 mg 07/06/24 15:31 Morphine Sulfate 12hr Er 15 Mg Tablet.Er PO Q12H PRN Pain Naloxone HCl 0.4 mg 07/06/24 15:31 Naloxone Hcl 0.4 Mg/Ml Vial IV-PUSH 07/06/25 15:30 Q2M PRN Opioid Reversal Ondansetron HCl 8 mg 07/06/24 15:31 Ondansetron Odt 4 Mg Tab.Rapdis PO 07/06/25 15:30 TID PRN Nausea Oxycodone HCl 5 mg 07/06/24 15:31 Oxycodone Ir 5 Mg Tablet PO Q4HR PRN Pain Scale 6 - 10 Pantoprazole Sodium 40 mg 07/07/24 09:00 Pantoprazole 40 Mg Tablet.Dr PO 08/05/24 09:01 DAILY TORO Polyethylene Glycol 17 gm 07/07/24 09:00 Polyethylene Glycol 3350 17 Gm Powd.Pack PO 07/14/24 08:59 DAILY TORO Prednisone 10 mg 07/08/24 09:00 Prednisone 10 Mg Tablet PO 08/06/24 09:01 DAILY TORO Prochlorperazine Maleate 10 mg 07/06/24 15:31 Prochlorperazine Maleate 5 Mg Tablet PO 07/06/25 15:30 Q6H PRN Nausea Senna/Docusate Sodium 2 tab 07/07/24 09:00 Sennosides/Docusate 8.6-50mg 1 Tab Tablet PO 08/06/24 08:59 DAILY TORO Sodium Chloride 0 ml 07/06/24 05:44 Sodium Chloride 0.9 % 10 Ml Syringe IV-PUSH 07/06/25 05:43 PRN PRN Flush Sodium Chloride 0 ml 07/06/24 07:15 Sodium Chloride 0.9 % 10 Ml Syringe IV-PUSH 07/06/25 07:14 PRN PRN Flush Sodium Chloride 0 ml 07/06/24 22:00 Sodium Chloride 0.9 % 10 Ml Syringe IV-PUSH 07/06/25 21:59 QSHIFT TORO Temazepam 7.5 mg 07/06/24 15:31 Temazepam 7.5 Mg Capsule PO 01/02/25 15:30 QHS PRN Insomnia Tramadol HCl 50 mg 07/06/24 15:31 Tramadol 50 Mg Tablet PO 01/02/25 15:30 Q6H PRN Pain Scale 1 - 5 Exam Physical Exam Vital Signs: Temp Pulse Resp BP Pulse Ox O2 Del Method O2 Flow Rate 97.8 F 50 L 16 153/85 H 100 Room Air 8 07/06/24 10:20 07/06/24 12:15 07/06/24 12:15 07/06/24 12:15 07/06/24 12:15 07/06/24 12:15 07/06/24 10:20 Results - Hospitalist Consult Lab Results Labs: Laboratory Results - last 72 hr 07/06/24 06:28: Blood Type Recheck B Positive Assessment & Plan Assessment/Plan (1) Hypertension: Plan . Documented By: Moncho Hilton DO 07/06/24 15 53 Signed By: <Electronically signed by Moncho Hilton DO> 07/06/[address] [facility] Work Phone: 1(579) 732-498611-18-2024 [place] [address] Hospitalist Consult Note Signed Patient: Otf Terry MR#: [id number] : 1955 Acct:[id number] Age/Sex: 69 / M Adm Date: 4 Loc: Room: [address] [place] [address] Type: [facility] Attending Dr: Reji Wesley II, MD Copies to: DO Moncho Burt DO Robert M Carlisle, MD~ HPI DATE OF CONSULTATION: 07/06/24 REQUESTING PROVIDER: Reji Wesley II Consult Narrative Reason for Consult: Hypertension HPI: This patient is a 69-year-old male being seen postoperatively on the MedSur floor following a left-sided total knee arthroplasty performed with orthopedic surgery earlier this afternoon. Hospitalistservices consulted for medical management including for chronic hypertension. Most recently his vital signs are all relatively stable with some high normal blood pressure 151/87 mmHg and low normal heart rate at 54 bpm. He has no hemodynamic or respiratory compromise otherwise. Physical Examination: GENERAL APPEARANCE: Alert, up in bed AAOx3 HEENT: NCAT, MMM NECK: Neck soft w/o masses, no JVD CARDIAC: Normal S1 and S2. No S3, S4 or murmurs. LUNGS: Clear to auscultation bilaterally. no wheeze/rhonchi/rales ABDOMEN: Positive bowel sounds. Soft, nontender. No guarding or signs of an acute abdomen EXTREMITIES: No clubbing, cyanosis or edema NEUROLOGICAL: No focal deficits SKIN: Skin normal color, texture and turgor with no lesions or eruptions. PSYCHIATRIC: Appropriate mood and affect Assessment and plan: 1. Hypertension 2. Chronic kidney disease stage IIIa 3. Restless leg syndrome 4. Osteoarthritis 5. History of kidney stones I have completed the Herculean task of resuming the patient's daily losartan 50 mg. Little else to offer medically. Will sign off. Please call or reconsult with any medical issues. Review of Systems Review of Systems All other systems reviewed & are negative unless noted below or in HPI [facility] Medical History HAMZAH (obstructive sleep apnea) Skin cancer Secondary hyperparathyroidism Chronic kidney disease, stage 3a Restless leg syndrome Primary osteoarthritis of right knee Primary osteoarthritis of left knee Nephrolithiasis Leukopenia Kidney stones Hypertension History of torn meniscus of left knee (2009) Knee scope left / Torn Meniscus/ Dr. Lanza Surgical History History of vasectomy History of tonsillectomy History of uvulopalatopharyngoplasty Hx of colonoscopy Colonoscopy at age 60 per patient / does not recall who did it 2014 H/O sinus surgery H/O foot surgery (1979) Family History Brother History of stroke Legacy FamHx Relation: Brother(s); Legacy FamHx Problem: Diagnosed with Stroke Father Heart disease 91 yrs History of heart surgery Mother 88 yrs Sister Heart disease Myocardial infarction Sister Cancer Social History Smoking Status: Never smoker Substance Use Type: None Meds Medications and Allergies Allergies No Known Allergies Allergy (Verified 06/19/24 08:23) Home Medications aspirin 81 mg chewable tablet 81 mg PO QPM 05/11/24 [History Confirmed 07/06/24] glucosamine HCl 500 mg tablet 500 mg PO BID 05/11/24 [History Confirmed 06/19/24] magnesium oxide 400 mg (241.3 mg magnesium) tablet 1 tab PO BID 05/11/24 [History Confirmed 06/22/24] multivitamin with minerals-folic acid 80 mcg chewable tablet (Centrum Adult 50 Plus) 1 tab PO QAM 05/11/24 [History Confirmed 06/22/24] turmeric 400 mg capsule 1,600 mg PO BID 05/11/24 [History Confirmed 06/22/24] losartan 50 mg tablet 50 mg PO QAM 06/19/24 [History Confirmed 07/06/24] meloxicam 15 mg tablet 15 mg PO QAM 06/19/24 [History Confirmed 07/06/24] renafood 1 tab PO BID 06/19/24 [History Confirmed 06/22/24] saw palm 160 mg-vit E 100 unit-selen 100 rpq-voou-yrnodz-pygeum tablet (ProstateHealth) 1 tab PO BID 06/19/24 [History Confirmed 06/22/24] symplex m 1 tab PO BID 06/19/24 [History Confirmed 06/22/24] acetaminophen 500 mg tablet 1,000 mg (2 x 500 mg) PO Q8H 30 days #180 tabs 06/22/24 [Rx Confirmed 06/22/24] aspirin 81 mg tablet,delayed release 81 mg PO BID 35 days #70 tabs 06/22/24 [Rx Confirmed 06/22/24] cefadroxil 500 mg capsule 500 mg PO Q12H 7 days #14 tabs 06/22/24 [Rx Confirmed 06/22/24] ondansetron HCl 4 mg tablet 4 mg PO Q8H PRN Nausea #9 tabs 06/22/24 [Rx Confirmed 06/22/24] oxycodone 5 mg tablet 5 mg PO Q4H PRN Pain 7 days #42 tabs 06/22/24 [Rx Confirmed 06/22/24] pantoprazole 20 mg tablet,delayed release (Protonix) 20 mg PO daily 35 days #35 tabs 06/22/24 [Rx Confirmed 06/22/24] polyethylene glycol 3350 17 gram/dose oral powder (Miralax) 17 g PO daily 7 days#7 packets 06/22/24[Rx Confirmed 06/22/24] prednisone 10 mg tablet 10 mg PO daily 10 days #10 tabs 06/22/24 [Rx Confirmed 06/22/24] sennosides 8.6 mg-docusate sodium 50 mg tablet (Senokot-S) 2 tab PO daily 30 days #60 tabs 06/22/24[Rx Confirmed 06/22/24] tramadol 50 mg tablet 50 mg PO q6h PRN Pain 7 days #28 tabs 06/22/24 [Rx Confirmed 06/22/24] Active Medications: Active Medications Generic Name Dose Route Start Last Admin Trade Name Freq PRN Reason Stop Dose Admin Acetaminophen 1,000 mg 07/06/24 16:00 Acetaminophen 500 Mg Tablet PO 07/06/25 15:59 Q8H TORO Ascorbic Acid 500 mg 07/06/24 17:00 Ascorbic Acid 500 Mg Tablet PO 07/06/25 16:59 BID.WITH.MEALS TORO Aspirin 81 mg 07/06/24 21:00 Aspirin 81 Mg Tablet. PO 07/06/25 20:59 BID TORO Cefadroxil 500 mg 07/07/24 09:00 Cefadroxil 500 Mg Capsule PO 07/13/24 21:01 BID TORO Cefazolin Sodium 2 gm 07/06/24 16:00 Cefazolin 2 Gm/11 Ml Syringe IV-PUSH 07/07/24 00:01 Q8H TORO Diphenhydramine HCl 25 mg 07/06/24 15:31 Diphenhydramine 25 Mg Capsule PO 07/06/25 15:30 Q6H PRN Itching Ferrous Sulfate 324 mg 07/06/24 17:00 Ferrous Sulfate 324 Mg Tablet. PO 07/06/25 16:59 BID.WITH.MEALS TORO Lactated Ringer's 1,000 mls @ 20 mls/hr 07/06/24 05:44 07/06/24 10:31 Lactated Ringers IV 07/07/24 05:43 20 mls/hr .Q24H ONE Infusion Lactated Ringer's 1,000 mls @ 75 mls/hr 07/06/24 15:45 Lactated Ringers IV 07/07/24 05:04 .[id number] ONE Mineral Oil 1 each 07/09/24 15:31 Mineral Oil ([place]) 1 Each Enema MN ONCE PRN Constipation Morphine Sulfate 15 mg 07/06/24 15:31 Morphine Sulfate 12hr Er 15 Mg Tablet.Er PO Q12H PRN Pain Naloxone HCl 0.4 mg 07/06/24 15:31 Naloxone Hcl 0.4 Mg/Ml Vial IV-PUSH 07/06/25 15:30 Q2M PRN Opioid Reversal Ondansetron HCl 8 mg 07/06/24 15:31 Ondansetron Odt 4 Mg Tab.Rapdis PO 07/06/25 15:30 TID PRN Nausea Oxycodone HCl 5 mg 07/06/24 15:31 Oxycodone Ir 5 Mg Tablet PO Q4HR PRN Pain Scale 6 - 10 Pantoprazole Sodium 40 mg 07/07/24 09:00 Pantoprazole 40 Mg Tablet.Dr PO 08/05/24 09:01 DAILY TORO Polyethylene Glycol 17 gm 07/07/24 09:00 Polyethylene Glycol 3350 17 Gm Powd.Pack PO 07/14/24 08:59 DAILY [facility] Prednisone 10 mg 07/08/24 09:00 Prednisone 10 Mg Tablet PO 08/06/24 09:01 DAILY [facility] Prochlorperazine Maleate 10 mg 07/06/24 15:31 Prochlorperazine Maleate 5 Mg Tablet PO 07/06/25 15:30 Q6H PRN Nausea Senna/Docusate Sodium 2 tab 07/07/24 09:00 Sennosides/Docusate 8.6-50mg 1 Tab Tablet PO 08/06/24 08:59 DAILY [facility] Sodium Chloride 0 ml 07/06/24 05:44 Sodium Chloride 0.9 % 10 Ml Syringe IV-PUSH 07/06/25 05:43 PRN PRN Flush Sodium Chloride 0 ml 07/06/24 07:15 Sodium Chloride 0.9 % 10 Ml Syringe IV-PUSH 07/06/25 07:14 PRN PRN Flush Sodium Chloride 0 ml 07/06/24 22:00 Sodium Chloride 0.9 % 10 Ml Syringe IV-PUSH 07/06/25 21:59 QSHIFT TORO Temazepam 7.5 mg 07/06/24 15:31 Temazepam 7.5 Mg Capsule PO 01/02/25 15:30 QHS PRN Insomnia Tramadol HCl 50 mg 07/06/24 15:31 Tramadol 50 Mg Tablet PO 01/02/25 15:30 Q6H PRN Pain Scale 1 - 5 Exam Physical Exam Vital Signs: Temp Pulse Resp BP Pulse Ox O2 Del Method O2 Flow Rate 97.8 F 50 L 16 153/85 H 100 Room Air 8 07/06/24 10:20 07/06/24 12:15 07/06/24 12:15 07/06/24 12:15 07/06/24 12:15 07/06/24 12:15 07/06/24 10:20 Results - Hospitalist Consult Lab Results Labs: Laboratory Results - last 72 hr 07/06/24 06:28: Blood Type Recheck B Positive Assessment & Plan Assessment/Plan (1) Hypertension: Plan . Documented By: Moncho Hilton, DO 07/06/24 15 53 Signed By: 07/06/242127 [facility]11-18-2024 Evaluation note* Diagnosis Onset Date Resolution Status Admit Date Hypertension acute June 5:38am Status post total left knee replacement acute July 06, 5:38am Aftercare following left kne e joint replacement surgery acute [facility] er 2023 12:32pm Status post total left knee replacement acute July 22 12:32pm Aftercare following left kne e joint replacement surgery acute 2024 11:38am Primary osteoarthritis of ri ght knee acute August 26 11:38am Status post total left knee replacement acute August 26 11:38am [facility] Work Phone: [phone] 167-605211-04-2024 Evaluation note* Diagnosis Onset Date Resolution Status Admit Date Primary osteoarthritis of le ft knee acute June 22 10:12am Hypertension acute June 5:38am Status post total left knee replacement acute July 06, 2 024 5:38am Aftercare following left kne e joint replacement surgery acute [facility] er 2023 12:32pm Status post total left knee replacement acute July 22 12:32pm Aftercare following left kne e joint replacement surgery acute y 2024 11:38am Status post total left knee replacement acute August 26 11:38am [facility] Work Phone: [phone]) 767-777611-04-2024 Evaluation note* Diagnosis Onset Date Resolution Status Admit Date Primary osteoarthritis of le ft knee acute June 22 10:12am Hypertension acute June 5:38am Status post total left knee replacement acute July 06, 024 5:38am Aftercare following left kne e joint replacement surgery acute Decemb er 2023 12:32pm Status post total left knee replacement acute July 22 12:32pm Aftercare following left kne e joint replacement surgery acute Januar y 2024 11:38am Primary osteoarthritis of ri ght knee acute August 26 11:38am Status post total left knee replacement acute August 26 11:38am [facility] Work Phone: [phone] 222-296110-08-2024 Evaluation note* Author Jose Billy [facility] Authored May 26, 2024 11 :08am The above note written by __ _Laurel Sen____ acting as human recorder, note dictated by Dr. Atkins .I performed the above HPI, ROS, and Examination. I formulated and dictated the treatment plan and was present for entire encounter. Jose Billy D.O. [facility] Work Phone: 1([phone]) 271-986210-08-2024 Evaluation note* Author Jose Billy [facility] Authored May 26, 2024 10 :08am The above note written by __ _Laurel Sen____ acting as human recorder, note dictated by Dr. Atkins .I performed the above HPI, ROS, and Examination. I formulated and dictated the treatment plan and was present for entire encounter. Jose Billy D.O. [facility] Work Phone: 1(660) 786-312512-13-2023 Evaluation note* Encounter Date Diagnosis Assessment Notes Treatment Notes Treatment Clinical Notes Jul, Primary osteoarthritis of left knee (ICD-10 - M17.12) Jul, Primary osteoarthritis of right knee (ICD-10 - M17.11) Jul, Acute pain of left knee (ICD-10 - M25.562) Jul, Other 1. We had a leo g discussion with the patient today concerning their [...] physical therapy, and the consistent use of anti-inflammatories. All 3 of these options, including their [...] this time 6. Follow up as needed [facility] Other 10-05-2023 Evaluation note* Encounter Date Diagnosis [...] need to discuss a referral to a master police detective. May, Restless leg syndrome (ICD-10 - G25.81) He does continue with above medication as directed. 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 May, Nocturia (ICD-10 - R35.1) [facility] Other 10-20-2022 Evaluation note* Encounter Date Diagnosis [...] will continue to monitor this. May, Other alf (current) drug therapy (ICD-10 - Z79.899) May, Nocturia (ICD-10 - R35.1) May, Restless leg syndrome (ICD-10 - G25.81) Continue with above medication as directed. [facility] Other 06-17-2022 Evaluation note* Encounter Date Diagnosis Assessment Notes Treatment Notes Treatment Clinical Notes Jan, Encounter for immunization (ICD-10 - Z23) Patient presents for COVID-19 vaccination BOOSTER. Pre-screening form answers evaluated with patient. Patient denies current illness or allergic reaction to component of COVID-19 vaccine. Patient provided with current copy of EUA. [facility] Other 05-19-2022 Evaluation note* Encounter Date Diagnosis [...] the progression of the CKD. December, Alberto ignacio w cr kid I-IV (ICD-10 - I12.9) Blood pressure is high today but usually controlled. He appears to be euvolemic. Continue current hypertensive medication. I have advised him to monitor blood pressure at home and call office if stays above 140/90 mmHg. December, Nephrolithiasis (ICD-10 - N20.0) He denies any recent passage of the kidney stones. I advised him adequately hydrate himself. [facility] Other 02-07-2022 Evaluation note* Encounter Date Diagnosis [...] to evaluate the renal anatomy Sep, Alberto rodgers kid w cr kid I-IV (ICD-10 - I12.9) Blood pressure is high today but usually controlled. He appears to be euvolemic. Continue current hypertensive medication. I have advised him to monitor blood pressure at home and call office if stays above 140/90 mmHg. Sep, Secondary hyperparathyroidism (ICD-10 - N25.81) Calcium within normal limit. We will check PTH and vitamin D. [facility] Other 12-08-2021 Evaluation note* Encounter Date Diagnosis Assessment Notes Treatment Notes Treatment Clinical Notes Jul, Encounter for immunization (ICD-10 - Z23) Patient presents for COVID-19 vaccination BOOSTER. Pre-screening form answers evaluated with patient. Patient denies current illness or allergic reaction to component of COVID-19 vaccine. Patient provided with current copy of EUA. [facility] Other 10-19-2021 Evaluation note* Encounter Date Diagnosis Assessment Notes Treatment Notes Treatment Clinical Notes May, Hypertension (ICD-10 - I10) Blood pressure is controlled. Continue with above medication daily as directed. 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 May, Elevated PSA (ICD-10 - R97.20) His PSA is 1.140. Free PSA is 0.290. % Free PSA is 25.0. No sign of prostate cancer at this time. May, Lumbar pain (ICD-10 - M54.5) He did see a chiropractor once a week for four weeks and voices that this did help his back pain. May, Nocturia (ICD-10 - R35.1) [facility] Other Evaluation noteNo InformationNort [employer] Other Evaluation noteNo assessment information available [facility] Work Phone: Evaluation note* Diagnosis Onset Date Resolution Status Elevated PSA acute Encounter for preoperative assessment acute Hyperlipidemia acute Hypertension acute Other abnormal blood chemistry acute Primary osteoarthritis of left knee acute [facility] Work Phone: [facility] general Narrative - Reported* Type Description Date Medical History HTN Medical History Kidney stones Surgical History Foot Surgery 1979 Surgical History Knee scope left / Torn Meniscus / Dr. Lanza 2009 Surgical History Colonoscopy at age 60 per patie nt / does not recall who did it 2014 [facility] Other [facility] general Narrative - Reported* Type Description Date Medical History HTN Medical History Kidney stones Surgical History Foot Surgery 1979 Surgical History Knee scope left / Torn Meniscus / Dr. Lanza 2009 Surgical History Colonoscopy at age 60 per patie nt / does not recall who did it 2014 Surgical History SINUS SURGERY [facility] Other [facility] Discharge instructions Additional Instructions Joint Replacement Discharge Instructions Your safety during your recovery process is important to us. Please seek immediate emergency care if you have sudden chest pain or shortness of breath. Additionally, please call our office at [phone] should any of the following occur: wound bleeding or an increase in bleeding, increased swelling, redness around the incision, fever over 101 F, excessive vomiting, nosebleeds, or bloody stool. Discharge Medications (scheduled) indicated with an X: ____x___ Senokot-S 8.6-50mg tablet. Take 2 tablets by mouth daily for 30 days or as long as you are taking a narcotic pain medication (tramadol, oxycodone, or morphine). Begin the day of surgery. X__ Miralax 17g packet. Drink 1 packet mixed with 8 ounces of water daily for 7 days. Begin the morning after surgery. Begin your home anticoagulation medication, the morning after surgery. Take as prescribed like you were before surgery. X__ Ecotrin (coated aspirin) 81mg tablet by mouth twice daily for 35 days. Begin the morning after surgery. X__ Protonix (pantoprazole) 20mg tablet by mouth daily for 35 days. Begin the morning after surgery. Xarelto (rivaroxaban) 10mg table by mouth daily for 35 days. Begin the morning after surgery. Celebrex (celecoxib) 200mg tablet by mouth twice daily for 30 days. Take with food. Begin the morning after surgery. ___X____ Duricef (cefadroxil) 500mg tablet by mouth twice daily for 7 days. Take with food. Begin the morning after surgery. Bactrim-DS (sulfamethoxazole & trimethoprim) 800mg-160mg tablet by mouth twice daily for 7 days. Take with food. Begin the morning after surgery. Cleocin (clindamycin) 300mg tablet by mouth 3 times (every 8 hours) a day for 7 days. Take with food. Begin the morning after surgery. ___X____ Tylenol (acetaminophen) 500mg tablet. Take 2 tablets 3 times (every 8 hours) a day for 30 days. Begin the night of surgery if necessary. ___X____ Prednisone 10mg tablet. Take 1 tablet daily for 10 days. Begin the morning after surgery. *If you have a patch behind your ear remove it the morning after surgery, discard, and thoroughly wash your hands. Discharge Medications (as needed) indicated with an X: ___X____ Zofran (Ondansetron) 4mg tablet by mouth 3 times (every 8 hours) a day as needed for nausea. Begin the night of surgery if necessary. ____X___ Tramadol (Ultram) 50mg tablet. Take 1 tablet by mouth every 6 hours as needed for pain. Do not take at the same time as oxycodone, MS Contin (morphine extended release), or Dilaudid (hydromorphone). Take with food. Begin the night of surgery. Take around the clock for 24 hours after surgery and then utilize if necessary. ____X___ Oxycodone 5mg tablet. Take 1 tablet by mouth every 4 hours as needed for pain. If pain unrelenting 30 minutes after taking 1 tablet, then take another 1 tablet. Do not take at the same time as MS Contin (morphine extended release), Dilaudid (hydromorphone), or Tramadol (Ultram). Take with food. Begin the night of surgery. Take around the clock for 24 hours after surgery and then utilize if necessary. MS Contin (morphine extended release) 15mg tablet. Take 1 tablet by mouth every 12 hours as needed for BREAKTHROUGH pain only. If pain unrelenting 30 minutes after you have taken the second oxycodone 5mg tablet, then take 1 MS Contin tablet. Do not take at the same time as oxycodone or Tramadol (Ultram); this is a time-released medication and can only be taken once every 12 hours. Resume oxycodone at next scheduled time (4 hours after the MS Contin tablet). Begin the night of surgery if necessary. Dilaudid (hydromorphone) 2mg tablet. Take 1 tablet by mouth every 8 hours as needed for BREAKTHROUGH pain only. If pain unrelenting 30 minutes after oxycodone, then take 1 Dilaudid tablet. Do not take at the same time as oxycodone or Tramadol (Ultram). Resume oxycodone at next scheduled time (4 hours after the Dilaudid tablet). Begin the night of surgery if necessary. Discharge Instructions: BE SURE YOU HAVE READ THE BOOKLET YOU RECEIVED IN THE OFFICE. Home Health: Home health is a valuable partner in the joint replacement process; they will be your first step to your road of recovery. A therapist will see you the day after your surgery; they will be at your home before noon. They will see you the first three days after surgery and continue working with you until I see you in the office for your 2-week post-op appointment. Follow their instructions. Exercises are to be done several times a day, including the days the therapist does not come to your house! Wound Care: Your surgical incision may be covered with a few different dressings. Your home health physical therapist will remove the gauze dressing the first day after surgery, but they will leave one of the following in place until you see me in the office. Zipline This is a no contact dressing that will stay in place until you are seen in the office for your 2-week post-op appointment. Do not place any ointments, creams, or lotions on your wound. Avoid getting outside on hot days; excessive sweating can increase the risk of wound infection. If there is drainage, place a gauze dressing over the wound, secure with paper tape, and call your therapist. A small amount of drainage is expected. When you do bathe, allow soapy water to run over the dressing site, but do not scrub the incision or the dressing. Pat the dressing site dry with a towel after you shower. DO NOT take a bath, enter a pool, shelton/pond,or ocean until we discuss this at your post-op appointments. Aquacel This is a silver-impregnated dressing with antibiotic properties that will stay in place until you are seen in the office for your 2-week post-op appointment. Do not place any ointments, creams, or lotions around your wound or on the dressing. Avoid getting outside on hot days; excessive sweating can increase the risk of wound infection. If there is drainage, place a gauze dressing over the wound, secure with paper tape, and call your therapist. A small amount of drainage is expected. When you do bathe, allow soapy water to run over the dressing site, but do not scrub the incision or the dressing. Pat the dressing site dry with a towel after you shower. DO NOT take a bath, enter a pool, shelton pond, or ocean until we discuss this at your post-op appointments. Prevena This is a negative pressure wound therapy device with a collection container for any drainage. If this becomes completely full, call your therapist to discuss changing the collection container. This device also has a 14-day battery. Your home health physical therapist will remove the dressing 14 days after your surgery; it will be removed prior to your initial follow up appointment. Do not place any ointments, creams, or lotions around your wound or on the dressing. Avoid getting outside on hot days; excessive sweating can increase the risk of wound infection. When you do bathe, allow soapy water to run over the dressing site, but do not scrub the device or the surrounding skin. DO NOT get the device wet! Pat the dressing site dry with a towel after you shower. DO NOT take a bath, enter a pool, shelton/pond, or ocean until we discuss this at your post-op appointments. What to expect: SWELLING: Ice frequently, a minimum of 4 times a day for 20 minutes at a time for the first 2-3 weeks after surgery, especially after doing your exercises. While icing, elevate your foot above the level of your heart with several pillows under your ankle. DO NOT put pillows under your knee. (KNEE REPLACEMENT ONLY) Avoid prolonged periods of sitting over the first 7 to 10 days after surgery. We recommend that you not sit for more than 45 to 60 minutes at a time. You should get up and move around or lie down and elevate your leg. BRUISING: You will have bruising to some degree; possibly the thigh, calf, ankle, foot, and in some cases the genitalia. Do not be alarmed. The bruising will eventually go away on its own as the body reabsorbs the blood. BLISTERS: Some patients may develop blisters around the knee/hip and/or the incision. Although they can be alarming in appearance, they pose no significant risk to your joint replacement. Leave the blisters alone and allow them to heal on their own. NUMBNESS: Usually normal around the incision. For knee replacements, the outside of the knee may be involved as well. The area of numbness may shrink over time or it could last forever. For hip replacements, you may notice numbness on the outside of the thigh extending down the outside of the knee. The area of numbness may shrink over time or it could last forever. NILAM hose (stockinette): Wear them for 4 weeks on the operative side and 2 weeks on the nonoperative side. Try to wear these as 24/ as possible to help decrease swelling. Weight Bearing, Walkers, and Canes: Do not remove your knee immobilizer. Do not walk without this until your therapist has removed it either on the first day after surgery or the second day after surgery. Do not attempt to walk without your walker and your day care teacher until the therapist checks you the following day after surgery and gives you further instruction. Typically, you will start out on a walker, then progress to a cane, and eventually walk without any device. Some of our patients do this within 2 weeks of surgery, while others can take 6 weeks. Pain Medications: You may experience significant pain. Our goal is to make your pain manageable (not absent, since this is usually not realistic) and to allow you to progress with your therapy for your hip or knee. Take your pain medication scheduled for the first 24 hours, then take it as needed. Always take your pain medication with food to decrease nausea and vomiting. Be sure to take stool softeners and/or laxatives as directed. You may take azra-lay-outjqio Benadryl if itching occurs without a rash or hives. Icing and elevation will help relieve pain as well, do not underestimate the power of ice and elevation. We do recommend that you stop taking narcotic pain medications by 4-6 weeks after surgery and if necessary, continue to use anti-inflammatory medications such as Mobic (meloxicam), Celebrex (celecoxib), or an oilv-wgd-razzvfo medication (Aleve, Motrin, Ibuprofen, etc). Driving an automobile: You must be off all narcotic pain medications. If your right leg is involved, that is your braking leg. Your physical therapist needs to help you determine that you can actively and firmly hit the brake and sustain it as this could be a life or situation for you or someone else. You will not be cleared to drive by me or anyone else. It is up to you to know when you feel safe to drive. We do recommend utilizing an empty parking lot to practice and ensure you are able to slam on the brakes if necessary during an emergency. Low Grade Fever (less than 101 F): Low-grade fevers can be treated, but make sure you do not exceed the daily limit of Tylenol. The daily limit on Tylenol (acetaminophen) is 3000 mg in a 24-hour period. If you have procedures done after your joint replacement: Dental procedures (including routine cleaning), prostate surgery, colonoscopy, and other invasive procedures could increase your risk for a total joint infection. During a postoperative visit, be sure to discuss the use of prophylactic antibiotic therapy prior to and sometimes after these invasive procedures. The decision to utilize antibiotics before and/or after these invasive procedures is a shared decision process between you and myself. Constipation: If you develop constipation in spite of taking stool softeners and/or laxatives, follow the protocol below: Day 2 of constipation if no results, use a Dulcolax suppository Day 3 of constipation if no results, use a fleet s enema. If no results by the afternoon, notify our office. Bladder Habits: If you have difficulty urinating or are unable to urinate within 12 hours after arriving home following your surgery, please notify our office immediately. Expectations for Pain Relief after Joint Replacement: Patients predictably improve for up to a year after a hip or knee replacement. It is normal for you to still have some pain in your hip or knee for as much as 3 to 9 months after surgery. The pain relief will come, but you should not expect great relief of pain in less than this time. High demand activities (such as going up and down stairs) frequently take 3 to 9 months before patients feel comfortable doing them. It is permissible to go up and down stairs whenever you can safely navigate them, but it will take much longer to do them normally and with great confidence. Questions or Problems: If you have any questions, problems, or confusion about your recovery after your hip or knee replacement, please feel free to call our office at [phone]. You are a priority of ours and we will not be upset with you if you call. We would much rather you call to confirm aspects of your recovery process as opposed to possibly hindering your recovery with inappropriate care. We are committed to providing you with the best care possible. Reji Welsey II, MD Updated 09/09/23[facility] Work Phone: Reason for Referral Reason appt pt willing t o see either consult for treatment of chronic kidney disease stage 3A Diagnosis 1 Chronic kidney disea se, stage 3a (N18.31) Referral Organization [facility] Referring Provider First Name Jose Referring Provider Last Name Mariajose Referring Provider Specialty Family Prac power Referred Organization [facility] Nephrology Referred Provider Fiorella Vila Referred Address [address] ,[place],[address] Referred Provider Specialty Nephrology Referral Priority Routine General Notes Tisha Izaguirre 07/04/2021 02:01:24 PM > referral sent p2p. pt understands he will be contacted to schedule this appt. Chief Complaint and Reason for Visit Chief Complaint E78.5 R63.5 z79.899 r35.1 Chief Complaint OP SP LT KNEE PAIN D ISCUSS SURGERY Chief Complaint OP SP LT KNEE PAIN D ISCUSS SURGERY z79.899 m81.0 Chief Complaint OP SP LT KNEE PAIN D ISCUSS SURGERY z79.899 m81.0 E78.5 R63.5 Z79.899 R35.1 R97.20 Chief Complaint OP SP LT KNEE PAIN D ISCUSS SURGERY z79.899 m81.0 E78.5 R63.5 Z79.899 R35.1 R97.20 review labs Reason for Visit Elevated PSA Encounter for preoperative assessment Hyperlipidemia Hypertension Other abnormal blood chemistry Primary osteoarthritis of left knee Chief Complaint OP SP LT KNEE PAIN D ISCUSS SURGERY z79.899 m81.0 E78.5 R63.5 Z79.899 R35.1 R97.20 review labs Knee Pain Reason for Visit Elevated PSA Encounter for preoperative assessment Hyperlipidemia Hypertension Other abnormal blood chemistry Primary osteoarthritis of left knee Chief Complaint OP SP LT KNEE PAIN D ISCUSS SURGERY z79.899 m81.0 E78.5 R63.5 Z79.899 R35.1 R97.20 review labs Knee Pain M17.12 - Unilateral primary osteoarthritis, left k LTK Pre Op H&P LTKA Reason for Visit Elevated PSA Encounter for preoperative assessment Hyperlipidemia Hypertension Other abnormal blood chemistry Primary osteoarthritis of left knee Primary osteoarthritis of left knee Chief Complaint Admit Date OP SP LT KNEE PAIN DISCUSS SURGERY Aaron moraes 2023 1:15pm z79.899 m81.0 May 11, 2024 2:10pm E78.5 R63.5 Z79.899 R35.1 R97.20 May 20, 2024 8:10am review labs May 26, 2024 10 :19am Knee Pain June 19, 2024 7 :47am M17.12 - Unilateral primary osteoarthrit is, left k June 22, 2024 8:02am LTK Pre Op June 22, 2024 9 :19am H&P LTKA June 22, 2024 1 0:12am Prolonged June 26, 2024 8 :00am Reason for Visit Admit Date Elevated PSA May 26, 2024 10 :19am Encounter for preoperative assessment Oc tober 2023 10:19am Hyperlipidemia May 26, 2024 10 :19am Hypertension May 26, 2024 10 :19am Other abnormal blood chemistry May 262023 10:19am Primary osteoarthritis of left knee Octo 2023 10:19am Primary osteoarthritis of left knee Junmeghan 2023 10:12am Chief Complaint Admit Date OP SP LT KNEE PAIN DISCUSS SURGERY Aaron moraes 2023 1:15pm z79.899 m81.0 May 11, 2024 2:10pm E78.5 R63.5 Z79.899 R35.1 R97.20 May 20, 2024 8:10am review labs May 26, 2024 10 :19am Knee Pain June 19, 2024 7 :47am M17.12 - Unilateral primary osteoarthrit is, left k June 22, 2024 8:02am LTK Pre Op June 22, 2024 9 :19am H&P LTKA June 22, 2024 1 0:12am Prolonged June 26, 2024 8 :00am Knee Pain July 06, 2024 5:38am Knee Pain July 06, 2024 1:09pm Reason for Visit Admit Date Elevated PSA May 26, 2024 10 :19am Encounter for preoperative assessment Oc tob2023 10:19am Hyperlipidemia May 26, 2024 10 :19am Hypertension May 26, 2024 10 :19am Other abnormal blood chemistry May 262023 10:19am Primary osteoarthritis of left knee 2023 10:19am Primary osteoarthritis of left knee Junmeghan 2023 10:12am Hypertension July 06, 2024 5:38am Status post total left knee replacement July 06, 2024 5:38am Chief Complaint Admit Date Knee Pain June 19, 2024 7 :47am M17.12 - Unilateral primary osteoarthrit is, left k June 22, 2024 8:02am H&P LTKA June 22, 2024 1 0:12am Prolonged June 26, 2024 8 :00am Knee Pain July 06, 2024 5:38am Knee Pain July 06, 2024 1:09pm [facility] PT 2 WK POST OP LTKA July 22, 2 024 12:32pm LTK PO August 24, 2024 1: 00pm 4 WK RECHECK LTKA August 26, 2024 11 :38am Z47.1 - Aftercare following joint replac ement surg August 26, 2024 11:40am Reason for Visit Admit Date Primary osteoarthritis of left knee Shawna meraz 2023 10:12am Hypertension July 06, 2024 5:38am Status post total left knee replacement July 06, 2024 5:38am Aftercare following left knee joint repl acement surgery July 22, 2024 12:32pm Status post total left knee replacement July 22, 2024 12:32pm Aftercare following left knee joint repl acement surgery August 26, 2024 11:38am Status post total left knee replacement August 26, 2024 11:38am Chief Complaint Admit Date Knee Pain June 19, 2024 7 :47am M17.12 - Unilateral primary osteoarthrit is, left k June 22, 2024 8:02am H&P LTKA June 22, 2024 1 0:12am Prolonged June 26, 2024 8 :00am Knee Pain July 06, 2024 5:38am Knee Pain July 06, 2024 1:09pm [facility] PT 2 WK POST OP LTKA July 22 12:32pm 4 WK RECHECK LTKA August 26, 2024 11 :38am Z47.1 Z96.65August 26, 2024 11 :40am LTK PO August 26, 2024 1: 00pm Reason for Visit Admit Date Primary osteoarthritis of left knee Shawna [facility] 2023 10:12am Hypertension July 06, 2024 5:38am Status post total left knee replacement July 06, 2024 5:38am Aftercare following left knee joint repl acement surgery July 22, 2024 12:32pm Status post total left knee replacement July 22, 2024 12:32pm Aftercare following left knee joint repl acement surgery August 26, 2024 11:38am Primary osteoarthritis of right knee Refugio gutierrez 2024 11:38am Status post total left knee replacement August 26, 2024 11:38am Chief Complaint Admit Date Knee Pain July 06, 2024 5:38am Knee Pain July 06, 2024 1:09pm [facility] PT 2 WK POST OP LTKA July 22, 024 12:32pm 4 WK RECHECK LTKA August 26, 2024 11 :38am Z47.1 Z96.652 August 26, 2024 11 :40am LTK PO August 28, 2024 1 :00pm Prolonged September 25, 2024 7 :23am Reason for Visit Admit Date Hypertension July 06, 2024 5:38am Status post total left knee replacement July 06, 2024 5:38am Aftercare following left knee joint repl acement surgery July 22, 2024 12:32pm Status post total left knee replacement July 22, 2024 12:32pm Aftercare following left knee joint repl acement surgery August 26, 2024 11:38am Primary osteoarthritis of right knee Refugio edel 2024 11:38am Status post total left knee replacement August 26, 2024 11:38am Chief Complaint Admit Date Knee Pain July 06, 2024 5:38am Knee Pain July 06, 2024 1:09pm [facility] PT 2 WK POST OP LTKA July 22, 12:32pm 4 WK RECHECK LTKA August 26, 2024 11 :38am Z47.1 Z96.65August 26, 2024 11 :40am LTK PO August 28, 2024 1 :00pm Prolonged September 25, 2024 7 :23am Knee Pain September 28, 2024 11:04am Chief Complaint Admit Date [facility] PT 2 WK POST OP LTKA July 22 12:32pm 4 WK RECHECK LTKA August 26, 2024 11 :38am Z47.1 Z96.652 August 26, 2024 11 :40am LTK PO August 28, 2024 1 :00pm Prolonged September 25, 2024 7 :23am Knee Pain September 28, 2024 11:04am H&P RTKA October 07, 2024 8:38am M17.11 - Unilateral primary osteoarthrit is, right October 07, 2024 8:41am Z47.1 - Aftercare following joint replac ement surg October 07, 2024 9:22am Reason for Visit Admit Date Aftercare following left knee joint repl acement surgery July 22, 2024 12:32pm Status post total left knee replacement July 22, 2024 12:32pm Aftercare following left knee joint repl acement surgery August 26, 2024 11:38am Primary osteoarthritis of right knee Refugio gutierrez 2024 11:38am Status post total left knee replacement August 26, 2024 11:38am Aftercare following left knee joint repl acement surgery October 07, 2024 8:38am Primary osteoarthritis of right knee Feb ruary 2024 8:38am Chief Complaint Admit Date [facility] PT 2 WK POST OP LTKA July 22, 2 024 12:32pm 4 WK RECHECK LTKA August 26, 2024 11 :38am Z47.1 Z96.652 August 26, 2024 11 :40am LTK PO August 28, 2024 1 :00pm Prolonged September 25, 2024 7 :23am Knee Pain September 28, 2024 11:04am H&P RTKA October 07, 2024 8:38am M17.11 - Unilateral primary osteoarthrit is, right October 07, 2024 8:41am Knee Pain October 12, 2024 7:23am Knee Pain October 12, 2024 8:00am Reason for Visit Admit Date Aftercare following left knee joint repl acement surgery July 22, 2024 12:32pm Status post total left knee replacement July 22, 2024 12:32pm Aftercare following left knee joint repl acement surgery August 26, 2024 11:38am Primary osteoarthritis of right knee Refugio uary 2024 11:38am Status post total left knee replacement August 26, 2024 11:38am Aftercare following left knee joint repl acement surgery October 07, 2024 8:38am Primary osteoarthritis of right knee Feb ruary 2024 8:38am Age related osteoporosis October 12, 2024 8:00am Hyperlipidemia October 12, 2024 8:00am Hypertension October 12, 2024 8:00am 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 alf current drug therapy Feb ruary 2024 8:00am Primary osteoarthritis of right knee Feb ruary 2024 8:00am Status post total right knee replacement October 12, 2024 8:00am Chief Complaint Admit Date 4 WK RECHECK LTKA August 26, 2024 11 :38am Z47.1 Z96.652 August 26, 2024 11 :40am LTK PO August 28, 2024 1 :00pm Prolonged September 25, 2024 7 :23am Knee Pain September 28, 2024 11:04am H&P RTKA October 07, 2024 8:38am M17.11 - Unilateral primary osteoarthrit is, right October 07, 2024 8:41am Knee Pain October 12, 2024 7:23am Knee Pain October 12, 2024 8:00am 2 WK POST OP RTKA October 28, 2024 9:2 4am Reason for Visit Admit Date Aftercare following left knee joint repl acement surgery August 26, 2024 11:38am Primary osteoarthritis of right knee Refugio gutierrez 2024 11:38am Status post total left knee replacement August 26, 2024 11:38am Aftercare following left knee joint repl acement surgery October 07, 2024 8:38am Primary osteoarthritis of right knee Feb ruary 2024 8:38am Age related osteoporosis October 12, 2024 8:00am Hyperlipidemia October 12, 2024 8:00am Hypertension October 12, 2024 8:00am 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 Feb ruary 2024 8:00am Primary osteoarthritis of right knee Feb ruary 2024 8:00am Status post total right knee replacement October 12, 2024 8:00am Aftercare following right knee joint rep lacement surgery October 28, 2024 9:24am Status post total right knee replacement October 28, 2024 9:24am Chief Complaint Admit Date 4 WK RECHECK LTKA August 26, 2024 11 :38am Z47.1 Z96.652 August 26, 2024 11 :40am LTK PO August 28, 2024 1 :00pm Prolonged September 25, 2024 7 :23am Knee Pain September 28, 2024 11:04am H&P RTKA October 07, 2024 8:38am M17.11 - Unilateral primary osteoarthrit is, right October 07, 2024 8:41am Knee Pain October 12, 2024 7:23am Knee Pain October 12, 2024 8:00am 2 WK POST OP RTKA October 28, 2024 9:2 4am S/P RTK November 02, 2024 1:0 0pm Chief Complaint Admit Date LTK PO August 28, 2024 1 :00pm Prolonged September 25, 2024 7 :23am Knee Pain September 28, 2024 11:04am H&P RTKA October 07, 2024 8:38am M17.11 - Unilateral primary osteoarthrit is, right October 07, 2024 8:41am Knee Pain October 12, 2024 7:23am Knee Pain October 12, 2024 8:00am 2 WK POST OP RTKA October 28, 2024 9:2 4am S/P RTK November 23, 2024 1:00 pm 4 WK RECHECK RTKA November 25, 2024 9:24 am Z47.1 - Aftercare following joint replac ement surg November 25, 2024 9:25am Reason for Visit Admit Date Aftercare following left knee joint repl acement surgery October 07, 2024 8:38am Primary osteoarthritis of right knee Feb ruary 2024 8:38am Age related osteoporosis October 12, 2024 8:00am Hyperlipidemia October 12, 2024 8:00am Hypertension October 12, 2024 8:00am 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 Feb ruary 2024 8:00am Primary osteoarthritis of right knee Feb ruary 2024 8:00am Status post total right knee replacement October 12, 2024 8:00am Aftercare following right knee joint rep lacement surgery October 28, 2024 9:24am Status post total right knee replacement October 28, 2024 9:24am Aftercare following right knee joint rep lacement surgery November 25, 2024 9:24am Chief Complaint Admit Date LTK PO August 28, 2024 1 :00pm Prolonged September 25, 2024 7 :23am Knee Pain September 28, 2024 11:04am H&P RTKA October 07, 2024 8:38am M17.11 - Unilateral primary osteoarthrit is, right October 07, 2024 8:41am Knee Pain October 12, 2024 7:23am Knee Pain October 12, 2024 8:00am 2 WK POST OP RTKA October 28, 2024 9:2 4am 4 WK RECHECK RTKA November 25, 2024 9:24 am Z47.1 - Aftercare following joint replac ement surg November 25, 2024 9:25am S/P RTK November 25, 2024 1:00 pm Chief Complaint Admit Date Prolonged September 25, 2024 7 :23am Knee Pain September 28, 2024 11:04am H&P RTKA October 07, 2024 8:38am M17.11 - Unilateral primary osteoarthrit is, right October 07, 2024 8:41am Knee Pain October 12, 2024 7:23am Knee Pain October 12, 2024 8:00am 2 WK POST OP RTKA October 28, 2024 9:2 4am 4 WK RECHECK RTKA November 25, 2024 9:24 am Z47.1 - Aftercare following joint replac ement surg November 25, 2024 9:25am S/P RTK November 30, 2024 1:4 5pm [email or web address] November 30, 2024 3:0 7pm Chief Complaint Admit Date Prolonged September 25, 2024 7 :23am Knee Pain September 28, 2024 11:04am H&P RTKA October 07, 2024 8:38am M17.11 - Unilateral primary osteoarthrit is, right October 07, 2024 8:41am Knee Pain October 12, 2024 7:23am Knee Pain October 12, 2024 8:00am 2 WK POST OP RTKA October 28, 2024 9:2 4am 4 WK RECHECK RTKA November 25, 2024 9:24 am Z47.1 - Aftercare following joint replac ement surg November 25, 2024 9:25am [email or web address] November 30, 2024 3:0 7pm S/P RTK December 14, 2024 1:4 5pm Chief Complaint Admit Date 2 WK POST OP RTKA October 28, 2024 9:2 4am 4 WK RECHECK RTKA November 25, 2024 9:24 am Z47.1 - Aftercare following joint replac ement surg November 25, 2024 9:25am [email or web address] November 30, 2024 3:0 7pm S/P RTK December 14, 2024 1:4 5pm Z47.1 - Aftercare following joint replac ement surg January 06, 2025 9:52am 6 WK RECHECK January 06, 2025 12:56 pm Reason for Visit Admit Date Aftercare following right knee joint rep lacement surgery October 28, 2024 9:24am Status post total right knee replacement October 28, 2024 9:24am Aftercare following right knee joint rep lacement surgery November 25, 2024 9:24am Aftercare following right knee joint rep lacement surgery January 06, 2025 12:56pm Status post total right knee replacement January 06, 2025 12:56pm Advance Directives Advance Directive Response Recorded Date/ Time Advance Directives No June 17, 2017 2:05pm Advance Directive Response Recorded Date/ Time Advance Directives No June 17, 2017 1:05pm Family History Relationship Condition Age at Onset Recorded Date/T saravanan brother History of stroke Unknown father Unknown Heart disease Unknown mother Unknown sister Unknown Malignant neoplasm Unknown Relationship Condition Age at Onset Recorded Date/T saravanan brother History of stroke Unknown father Heart disease Unknown Unknown History of heart surgery Unknown mother Unknown sister Heart disease Unknown Myocardial infarction Unknown sister Malignant neoplasm Unknown Relationship Condition Age at Onset Recorded Date/T saravanan brother History of stroke Unknown Unknown father History of heart surgery Unknown Heart disease Unknown mother Unknown sister Heart disease Unknown Myocardial infarction Unknown sister Malignant neoplasm Unknown Summary Purpose Additional Source Comments REASON FOR VISIT (unrecogniz ed section and content) review labsclinicalPFIZER VA CCINE BOOSTERquestionREFERRAL-NEPHRENAL CKD 3CKDPfizer Bosoter 2review labsreview labsNEW LT KNEE PAIN NX Care Teams (unrecognized sec tion and content) Team Status: Inactive Member Role Status Bruce Billy DO Primary Care Provider, Attending Pro vider Active Team Status: Active Member Role Status Bruce Billy DO Primary Care Provider Active Team Status: Inactive Member Role Status Bruce Billy DO Primary Care Provider Active Reji Wesley II, MD Attending Provider Active Team Status: Inactive Member Role Status Bruce Billy DO Primary Care Provider Active S tart: May 11, 2024 End: May 11, 2024 Reji Wesley II, MD Attending Provider Active Start: May 11, 2024 End: May 11, 2024 Team Status: Inactive Member Role Status Bruce Billy DO Primary Care Provide r, Attending Provider Active Start: May 20, 2024 End: May 20, 2024 Team Status: Inactive Member Role Status Bruce Billy DO Primary Care Provide r, Attending Provider Active Start: May 26, 2024 End: May 26, 2024 Team Status: Inactive Member Role Status Bruce Billy DO Primary Care Provider Active S tart: June 19, 2024 End: June 19, 2024 Reji Wesley II, MD Attending Provider Active Start: June 19, 2024 End: June 19, 2024 Team Status: Inactive Member Role Status Bruce Billy DO Primary Care Provider Active S tart: June 22, 2024 End: June 22, 2024 Reji Wesley II, MD Attending Provider Active Start: June 22, 2024 End: June 22, 2024 Team Status: Active Member Role Status Dates Jose Billy DO Primary Care Provider Active S tart: June 22, 2024 Reji Wesley II, MD Attending Provider Active Start: June 22, 2024 Team Status: Inactive Member Role Status Dates Jose Billy DO Primary Care Provider Active S tart: June 26, 2024 End: June 26, 2024 Reji Wesley II, MD Attending Provider Active Start: June 26, 2024 End: June 26, 2024 Team Status: Inactive Member Role Status Dates Jose Billy DO Primary Care Provider Active S tart: July 06, 2024 End: July 07, 2024 Reji Wesley II, MD Attending Provider Active Start: July 06, 2024 End: July 07, 2024 Deepti Lau RN Other Provider Active Star t: July 06, 2024 End: July 07, 2024 Juanita García , BASIA Other Provider Active Start : July 06, 2024 End: July 07, 2024 Maryam Wang RN Other Provider Active Star t: July 06, 2024 End: July 07, 2024 Gala Shipley , BASIA Other Provider Active Start: Viky jonas 2023 End: July 07, 2024 Tawny Greer , BASIA Other Provider Active Start: No theodora 2023 End: July 07, 2024 Roshan Garibay MD Other Provider Active Start: July 06, 2024 End: July 07, 2024 Slime Sanchez DO Other Provider Active Start : July 06, 2024 End: July 07, 2024 Jacques Aly MD Other Provider Active Start : July 06, 2024 End: July 07, 2024 Dionisio Carrasquillo DO Other Provider Active Start: July 06, 2024 End: July 07, 2024 Tashi Peterson MD Other Provider Active Start: July 06, 2024 End: July 07, 2024 Olga Doshi MD Other Provider Active Start : July 06, 2024 End: July 07, 2024 Moncho George DO Other Provider Active St art: July 06, 2024 End: July 07, 2024 Ludin Pritchett MD Other Provider Active Start: N 2023 End: July 07, 2024 Marisela Mccollum APRN Other Provider Active Start: July 06, 2024 End: July 07, 2024 Terri Siddiqui MD Other Provider Active Start: July 06, 2024 End: July 07, 2024 Brent Hubbard MD Other Provider Active Start: N 2023 End: July 07, 2024 Donovan Weir MD Other Provider Active Start: July 06, 2024 End: July 07, 2024 Kera Woody MD Other Provider Active Start: July 06, 2024 End: July 07, 2024 Moncho Hilton DO Other Provider Active Start: July 06, 2024 End: July 07, 2024 Fiona Lazo MD Other Provider Active Start: No 2023 End: July 07, 2024 Carlin Mix MD Other Provider Active Start: Jun End: July 07, 2024 Afua Langston , [employer] Other Provider Active St art: July 06, 2024 End: July 07, 2024 Camila Durán APRN Other Provider Active Star t: July 06, 2024 End: July 07, 2024 Lawrence Jimenez MD Other Provider Active Start: July 06, 2024 End: July 07, 2024 Homar Luke MD Other Provider Active Start: No 2023 End: July 07, 2024 Oseas Moulton MD Other Provider Active Start: Jun End: July 07, 2024 Zan Armijo MD Other Provider Active Star t: July 06, 2024 End: July 07, 2024 Norbert Garcia MD Other Provider Active Start: N 2023 End: July 07, 2024 Sparkle Mckeon DO Other Provider Active Start: No 2023 End: July 07, 2024 Felipe Alvares DO Other Provider Active Start : July 06, 2024 End: July 07, 2024 Laine Aguilar APRN Other Provider Active Start: July 06, 2024 End: July 07, 2024 Tyshawn Estrella DO Other Provider Active Start: July 06, 2024 End: July 07, 2024 Camila Andre MD Other Provider Active Sta rt: July 06, 2024 End: July 07, 2024 Hanna Mcdaniels APRN Other Provider Active Start : July 06, 2024 End: July 07, 2024 Delisa Sanchez APRN Other Provider Active St art: July 06, 2024 End: July 07, 2024 Liat Blackwell MD Other Provider Active Start: N ov2023 End: July 07, 2024 Otf Escobar MD Other Provider Active S tart: July 06, 2024 End: July 07, 2024 Mazin Siegel , Other Provider Active Star t: July 06, 2024 End: July 07, 2024 Constantin Santiago DO Other Provider Active Start: July 06, 2024 End: July 07, 2024 Robi Moulton MD Other Provider Active Start: July 06, 2024 End: July 07, 2024 Roselyn Delgado MD Other Provider Active Start: June End: July 07, 2024 Maria Elena Young APRN Other Provider Active Star t: July 06, 2024 End: July 07, 2024 Yaritza Marquis MD Other Provider Active Start: N ovember 2023 End: July 07, 2024 Arturo Delvalle MD Other Provider Active Start: No vember 2023 End: July 07, 2024 Ammy Brown RN Other Provider Active Start: N ov2023 End: July 07, 2024 Team Status: Active Member Role Status Dates Jose Billy DO Primary Care Provider Active S tart: July 06, 2024 Reji Wesley II, MD Attending Saul rodríguez, Other Provider Active Start: July 06, 2024 Team Status: Inactive Member Role Status Dates Jose Billy DO Primary Care Provider Active S tart: July 22, 2024 End: July 22, 2024 Reji Wesley II, MD Attending Provider Active Start: July 22, 2024 End: July 22, 2024 Team Status: Active Member Role Status Bruce Billy DO Primary Care Provider Active S tart: August 24, 2024 Reji Wesley II, MD Attending Provider Active Start: August 24, 2024 Team Status: Inactive Member Role Status Bruce Billy DO Primary Care Provider Active S tart: August 26, 2024 End: August 26, 2024 Reji Wesley II, MD Attending Provider Active Start: August 26, 2024 End: August 26, 2024 Team Status: Active Member Role Status Dates Jose Billy DO Primary Care Provider Active S tart: August 26, 2024 Reji Wesley II, MD Attending Provider Active Start: August 26, 2024 Team Status: Active Member Role Status Bruce Billy DO Primary Care Provider Active S tart: August 28, 2024 Reji Wesley II, MD Attending Provider Active Start: August 28, 2024 Team Status: Inactive Member Role Status Bruce Billy DO Primary Care Provider Active S tart: September 25, 2024 End: September 25, 2024 Reji Wesley II, MD Attending Provider Active Start: September 25, 2024 End: September 25, 2024 Team Status: Inactive Member Role Status Bruce Billy DO Primary Care Provider Active S tart: September 28, 2024 End: September 28, 2024 Reji Wesley II, MD Attending Provider Active Start: September 28, 2024 End: September 28, 2024 Team Status: Inactive Member Role Status Bruce Billy DO Primary Care Provider Active S tart: October 07, 2024 End: October 07, 2024 Reji Wesley II, MD Attending Provider Active Start: October 07, 2024 End: October 07, 2024 Team Status: Active Member Role Status Bruce Billy DO Primary Care Provider Active S tart: October 07, 2024 Reji Wesley II, MD Attending Provider Active Start: October 07, 2024 Team Status: Active Member Role Status Bruce Billy DO Primary Care Provider Active S tart: October 12, 2024 Reji Wesley II, MD Attending [facility] marcos, Other Provider Active Start: October 12, 2024 Deepti Lau RN Other Provider Active Star t: October 12, 2024 Juanita García RN Other Provider Active Start : October 12, 2024 Maryam Wang RN Other Provider Active Star t: October 12, 2024 Gala Shipley RN Other Provider Active Start: ebruary 2024 Tawny Greer RN Other Provider Active Start: 2024 Roshan Garibay MD Other Provider Active Start: October 12, 2024 Slime Sanchez DO Other Provider Active Start : October 12, 2024 Jacques Aly MD Other Provider Active Start : October 12, 2024 Dionisio Carrasquillo DO Other Provider Active Start: October 12, 2024 Tashi Peterson MD Other Provider Active Start: October 12, 2024 Olga Doshi MD Other Provider Active Start : October 12, 2024 Moncho George DO Other Provider Active St art: October 12, 2024 Ludin Pritchett MD Other Provider Active Start: 2024 Marisela Mccollum APRN Other Provider Active Start: October 12, 2024 Terri Siddiqui MD Other Provider Active Start: October 12, 2024 Brent Hubbard MD Other Provider Active Start: 2024 Donovan Weir MD Other Provider Active Start: October 12, 2024 Kera Woody MD Other Provider Active Start: October 12, 2024 Moncho Hilton DO Other Provider Active Start: October 12, 2024 Fiona Lazo MD Other Provider Active Start: 2024 Carlin Mix MD Other Provider Active Start: Sep Afua Langston NP-C Other Provider Active St art: October 12, 2024 Camila Durán APRN Other Provider Active Star t: October 12, 2024 Lawrence Jimenez MD Other Provider Active Start: October 12, 2024 Homar Luke MD Other Provider Active Start: 2024 Oseas Moulton MD Other Provider Active Start: Sep Zan Armijo MD Other Provider Active Star t: October 12, 2024 Norbert aGrcia MD Other Provider Active Start: ebruary 2024 Sparkle Mckeon , Other Provider Active Start: 2024 Felipe Alvares , Other Provider Active Start : October 12, 2024 Laine Aguilar APRN Other Provider Active Start: October 12, 2024 Tyshawn Estrella , Other Provider Active Start: October 12, 2024 Camila Andre MD Other Provider Active Sta rt: October 12, 2024 Hanna Mcdaniels APRN Other Provider Active Start : October 12, 2024 Delisa Sanchez APRN Other Provider Active St art: October 12, 2024 Liat Blackwell MD Other Provider Active Start: ebruary 2024 Otf Escobar MD Other Provider Active S tart: October 12, 2024 Mazin Siegel , Other Provider Active Star t: October 12, 2024 Constantin Santiago DO Other Provider Active Start: October 12, 2024 Robi Moulton MD Other Provider Active Start: October 12, 2024 Roselyn Delgado MD Other Provider Active Start: September Maria Elena Young APRN Other Provider Active Star t: October 12, 2024 Yaritza Marquis MD Other Provider Active Start: ebary 2024 Arturo Delvalle MD Other Provider Active Start: 2024 Daryn Espinoza MD Other Provider Active Start: October 12, 2024 Ludin Jackson MD Other Provider Active Start : October 12, 2024 Phan Wilson MD Other Provider Active Start: ebruary 2024 Rubi Sawant APRN Other Provider Active Sta rt: October 12, 2024 Corky Cespedes APRN Other Provider Active Start: September Ammy Brown RN Other Provider Active Start: ebruary 2024 Team Status: Inactive Member Role Status Dates Jose Billy DO Primary Care Provider Active S tart: October 12, 2024 End: October 13, 2024 Reji Wesley II, MD Attending Provider Active Start: October 12, 2024 End: October 13, 2024 Deepti Lau , BASIA Other Provider Active Star t: October 12, 2024 End: October 13, 2024 Juanita García , BASIA Other Provider Active Start : October 12, 2024 End: October 13, 2024 Maryam Wang , BASIA Other Provider Active Star t: October 12, 2024 End: October 13, 2024 Gala Shipley , BASIA Other Provider Active Start: ebruary 2024 End: October 13, 2024 Tawny Greer RN Other Provider Active Start: bruary 2024 End: October 13, 2024 Roshan Garibay MD Other Provider Active Start: October 12, 2024 End: October 13, 2024 Slime Sanchez DO Other Provider Active Start : October 12, 2024 End: October 13, 2024 Jacques Aly MD Other Provider Active Start : October 12, 2024 End: October 13, 2024 Dionisio Carrasquillo DO Other Provider Active Start: October 12, 2024 End: October 13, 2024 Tashi Peterson MD Other Provider Active Start: October 12, 2024 End: October 13, 2024 Olga Doshi MD Other Provider Active Start : October 12, 2024 End: October 13, 2024 Moncho George DO Other Provider Active St art: October 12, 2024 End: October 13, 2024 Ludin Pritchett MD Other Provider Active Start: ebruary 2024 End: October 13, 2024 Marisela Mccollum APRN Other Provider Active Start: October 12, 2024 End: October 13, 2024 Terri Siddiqui MD Other Provider Active Start: October 12, 2024 End: October 13, 2024 Brent Hubbard MD Other Provider Active Start: ebruary 2024 End: October 13, 2024 Donovan Weir MD Other Provider Active Start: October 12, 2024 End: October 13, 2024 Kera Woody MD Other Provider Active Start: October 12, 2024 End: October 13, 2024 Moncho Hilton DO Other Provider Active Start: October 12, 2024 End: October 13, 2024 Fiona Lazo MD Other Provider Active Start: 2024 End: October 13, 2024 Carlin Mix MD Other Provider Active Start: [place] 2024 End: October 13, 2024 Afua Langston [employer] Other Provider Active St art: October 12, 2024 End: October 13, 2024 Camila Durán APRN Other Provider Active Star t: October 12, 2024 End: October 13, 2024 Lawrence Jimenez MD Other Provider Active Start: October 12, 2024 End: October 13, 2024 Homar Luke MD Other Provider Active Start: 2024 End: October 13, 2024 Oseas Moulton MD Other Provider Active Start: [place] 2024 End: October 13, 2024 Zan Armijo MD Other Provider Active Star t: October 12, 2024 End: October 13, 2024 Norbert Garcia MD Other Provider Active Start: [place] 2024 End: October 13, 2024 Sparkle Mckeon DO Other Provider Active Start: 2024 End: October 13, 2024 Felipe Alvares DO Other Provider Active Start : October 12, 2024 End: October 13, 2024 Laine Aguilar APRN Other Provider Active Start: October 12, 2024 End: October 13, 2024 Tyshawn Estrella DO Other Provider Active Start: October 12, 2024 End: October 13, 2024 Camila Andre MD Other Provider Active Sta rt: October 12, 2024 End: October 13, 2024 Hanna Mcdaniels APRN Other Provider Active Start : October 12, 2024 End: October 13, 2024 Delisa Sanchez APRN Other Provider Active St art: October 12, 2024 End: October 13, 2024 Liat Blackwell MD Other Provider Active Start: ebruary 2024 End: October 13, 2024 Otf Escobar MD Other Provider Active S tart: October 12, 2024 End: October 13, 2024 Mazin Siegel , Other Provider Active Star t: October 12, 2024 End: October 13, 2024 Constantin Santiago DO Other Provider Active Start: October 12, 2024 End: October 13, 2024 Robi Moulton MD Other Provider Active Start: October 12, 2024 End: October 13, 2024 Roselyn Delgdao MD Other Provider Active Start: September End: October 13, 2024 Maria Elena Young APRN Other Provider Active Star t: October 12, 2024 End: October 13, 2024 Yaritza Marquis MD Other Provider Active Start: ebruary 2024 End: October 13, 2024 Arturo Delvalle MD Other Provider Active Start: bruary 2024 End: October 13, 2024 Daryn Espinoza MD Other Provider Active Start: October 12, 2024 End: October 13, 2024 Ludin Jackson MD Other Provider Active Start : October 12, 2024 End: October 13, 2024 Phan Wilson MD Other Provider Active Start: ebruary 2024 End: October 13, 2024 Rubi Sawant APRN Other Provider Active Sta rt: October 12, 2024 End: October 13, 2024 Corky Cespedes APRN Other Provider Active Start: October 12, 2024 End: October 13, 2024 Ammy Brown RN Other Provider Active Start: ebruary 2024 End: October 13, 2024 Team Status: Inactive Member Role Status Dates Jose Billy DO Primary Care Provider Active S tart: October 28, 2024 End: October 28, 2024 Reji Wesley II, MD Attending Provider Active Start: October 28, 2024 End: October 28, 2024 Team Status: Inactive Member Role Status Dates Jose Billy DO Primary Care Provider Active S tart: August 28, 2024 End: August 28, 2024 Reji Wesley II, MD Attending Provider Active Start: August 28, 2024 End: August 28, 2024 Team Status: Active Member Role Status Dates Jose Billy DO Primary Care Provider Active S tart: November 02, 2024 Reji Wesley II, MD Attending Provider Active Start: November 02, 2024 Team Status: Active Member Role Status Dates Jose Billy DO Primary Care Provider Active S tart: November 23, 2024 Reji Wesley II, MD Attending Provider Active Start: November 23, 2024 Team Status: Inactive Member Role Status Dates Jose Billy DO Primary Care Provider Active S tart: November 25, 2024 End: November 25, 2024 Reji Wesley II, MD Attending Provider Active Start: November 25, 2024 End: November 25, 2024 Team Status: Active Member Role Status Dates Jose Billy DO Primary Care Provider Active S tart: November 25, 2024 Reji Wesley II, MD Attending Provider Active Start: November 25, 2024 Team Status: Active Member Role Status Bruce Billy DO Primary Care Provider Active S tart: November 30, 2024 Reji Wesley II, MD Attending Provider Active Start: November 30, 2024 Team Status: Inactive Member Role Status Bruce Jose DO Mariajose Primary Care Provide r, Attending Provider Active Start: November 30, 2024 End: November 30, 2024 Team Status: Inactive Member Role Status Bruce Billy DO Primary Care Provider Active S tart: December 14, 2024 End: December 14, 2024 Reji Wesley II, MD Attending Provider Active Start: December 14, 2024 End: December 14, 2024 Team Status: Inactive Member Role Status Bruce Billy DO Primary Care Provider Active S tart: January 06, 2025 End: January 06, 2025 Reji Wesley II, MD Attending Provider Active Start: January 06, 2025 End: January 06, 2025 Goals (unrecognized section and content) Goals may be documented in a n alternate section (unrecognized sect ion and content) No Status Records Found INFORMATION SOURCE (unrecogn ized section and content) DATE CREATED AUTHOR 01/13/2025 [facility] FOR RECORDS PERTAINING TO PATIENTS WHO ARE [...] BE BASED ON THE PRIMARY CLINICAL RECORDS. [facility] [employer] [facility]. provides no warranty or guarantee of the accuracy or completeness of information in this document.
[2025-06-05 10:43] LABS: Glucose Urine UA NEGATIVE (NEGATIVE)
[2025-06-05 10:47] LABS: Hematocrit 41.8 % (42.0-54.0); Hemoglobin 14.1 g/dL (14.0-18.0); Immature Granulocytes Abs Auto 0.01 10^3/uL (0.00-0.03); Immature Granulocytes Pct Auto 0.3 % (0.0-0.5); Lymphocytes Absolute Auto 1.1 10^3/uL (1.2-3.8); Mean Corpuscular HGB Conc 33.7 g/dL (29.9-35.2); Mean Corpuscular Hemoglobin 29.9 pg (25.9-34.0); Mean Corpuscular Volume 88.6 fL (80.0-94.0); Platelet Count 187 10^3/uL (150-450); Red Blood Count 4.72 10^6/uL (4.70-6.10); White Blood Count 3.9 10^3/uL (4.0-11.0)
[2025-06-05 11:18] LABS: Alanine Aminotransferase 30 U/L (16-63); Albumin Globulin Ratio 1.1; Albumin Level 3.8 g/dL (3.4-5.0); Alkaline Phosphatase 125 U/L (46-116); Anion Gap 12.8; Aspartate Amino Transferase 26 U/L (15-37); Blood Urea Nitrogen 18.0 mg/dL (7.0-18.0); Calcium 9.2 mg/dL (8.5-10.1); Carbon Dioxide 27.5 mmol/L (21.0-32.0); Chloride 107 mmol/L (98-107); Cholesterol 173 mg/dL (<=200); Estimated GFR (African America >60 (>=60 mL/min/1.73m^2); Estimated GFR (Non-African Ame >60 (>=60 mL/min/1.73m^2); Globulin 3.4 g/dL; Glucose 87 mg/dL (74-106); HDL Cholesterol 61 mg/dL (40-60); Potassium 4.3 mmol/L (3.5-5.1); Sodium 143 mmol/L (136-145); Thyroid Stimulating Hormone 2.445 uIU/mL (0.358-3.740); Total Protein 7.2 g/dL (6.4-8.2); Triglycerides 30 mg/dL (<=150); VLDL CHOLESTEROL 6.0 mg/dL
[2025-06-05 12:38] LABS: Cast Seen? NONE SEEN #/LPF (NONE SEEN); Crystals Seen? None Seen #/HPF (None Seen)
[2025-06-06 07:07] LABS: PSA, Free 0.39 ng/mL
== END 2025-06-05 10:13 | disposition home or self-care (01) ==
PROVIDERS: PCP Family Medicine; Visit Provider Family Medicine
DX: R35.1 Nocturia (principal); Z79.899 Other long term (current) drug therapy; R97.20 Elevated prostate specific antigen [PSA]; E78.5 Hyperlipidemia, unspecified; Z12.5 Encounter for screening for malignant neoplasm of prostate; R63.5 Abnormal weight gain
CPT/HCPCS: 36415; 80053; 80061; 81001; 84153; 84154; 84443; 85025; 87086